=== PATIENT | female | born 1950 | race Caucasian/White ===

== ENCOUNTER 2022-08-14 10:09 | Outpatient (REF) | payer MEDICARE, SELFPAY ==
[2022-08-14 11:53] LABS: MANUAL DIFF FLAG NO
[2022-08-14 12:05] LABS: Basophils Absolute Auto 0.1 X10*3/uL (0.0-0.2); Basophils Percent Auto 1.2 % (0-2); Eosinophils Absolute Auto 0.3 X10*3/uL (0.0-0.4); Eosinophils Percent Auto 4.8 % (0-4); Hematocrit 37.3 % (37.0-47.0); Hemoglobin 12.3 g/dl (12.0-16.0); Imm Gran Abs Auto 0.02 X10*3/uL (0.00-0.03); Imm Gran Pct Auto 0.3 % (0.0-0.4); Lymphocytes Absolute Auto 1.6 X10*3/uL (1.2-4.9); Lymphocytes Percent Auto 26.3 % (20-40); Mean Corpuscular Hemoglobin 30.5 pg (27.0-33.0); Mean Corpuscular Volume 92.6 fL (80.0-98.0); Mean Platelet Volume 9.4 fL (9.4-12.3); Monocytes Absolute Auto 0.5 X10*3/uL (0.1-1.2); Monocytes Percent Auto 8.6 % (2-11); Neutrophils Absolute Auto 3.6 x10*3/uL (2.0-8.3); Neutrophils Percent Auto 58.8 % (45-73); Platelet Count 490 X10*3/uL (160-400); Red Blood Count 4.03 X10*6/uL (4.20-5.50); Red Cell Distribution Width 14.6 % (11.0-16.0); White Blood Count 6.1 X10*3/uL (4.8-10.8)
[2022-08-14 14:07] LABS: Appearance Urine Clear; Color Urine Yellow; Glucose Urine UA Negative (Negative); Leukocyte Esterase Urine Moderate (2+) (Negative); Nitrite Urine Positive (Negative); Specific Gravity - Urine 1.015 (1.005-1.025); UMIC TRIGGER UA YES; Urine Blood Negative (Negative); Urine Ketones Negative (Negative); Urine Protein Negative (Neg-Trace)
[2022-08-14 14:14] LABS: Bacteria Urine 4+ (None Seen); Hyaline Casts Urine 0-2 /LPF (0-2); RBC Urine 0-2 /HPF (0-2); Squamous Epithelial Cell Urine 0-2 /HPF (0-2); WBC Urine 21-50 /HPF (0-5)
[2022-08-14 14:19] LABS: Alanine Aminotransferase 18 U/L (0-31); Albumin Level 4.2 g/dL (3.5-5.0); Alkaline Phosphatase 72 U/L (39-117); Anion Gap 12 (12-20); Aspartate Amino Transferase 21 U/L (5-31); Bilirubin Total 0.6 mg/dL (0.0-1.0); Blood Urea Nitrogen 18 mg/dL (9-16); Calcium 9.9 mg/dL (8.4-10.2); Carbon Dioxide 27 mmol/L (22-29); Chloride 104 mmol/L (96-108); Cholesterol 220 mg/dL; Estimated Glomerular Filt Rate > 60; Glucose Fasting 97 mg/dL (60-99); HDL Cholesterol 61 mg/dL; LDL Cholesterol Calculated 134 mg/dl; Potassium 4.4 mmol/L (3.3-5.1); Sodium 139 mmol/L (135-145); Total Protein 7.2 g/dL (6.5-8.0); Triglycerides 129 mg/dL
[2022-08-14 14:37] LABS: TSH reflex Free T4 1.48 uIU/mL (0.32-4.0); Vitamin D 25-OH Total 34.6 ng/mL (>30)
== END 2022-08-14 10:10 | disposition home or self-care (01) ==
LOC: HO.HMGCLDS 10:09
PROVIDERS: PCP Internal Medicine; Visit Provider Internal Medicine
DX: Z00.00 Encounter for general adult medical examination without abnormal findings (principal); Z78.0 Asymptomatic menopausal state; E55.9 Vitamin D deficiency, unspecified
CPT/HCPCS: 36415; 80053; 80061; 81001; 82306; 84443; 85025

== ENCOUNTER 2022-08-21 13:00 | Outpatient (REF) | payer MEDICARE, SELFPAY ==
--- NOTE | ~2022-08-21 | MM_ITS ---
EXAMINATION: MM SCREENING DIGITAL BREAST TOMOSYNTHESIS, BILATERAL CLINICAL INFORMATION: Screening. Asymptomatic. Status post previous left breast surgery. The lifetime risk of breast cancer based on the Tyrer-Cuzick Model is 5.5%. COMPARISON: Mammography: None TECHNIQUE: Digital breast tomosynthesis is performed in both the craniocaudal and mediolateral oblique views along with computer-aided detection (CAD). Synthesized 2D images are generated from the tomosynthesis. FINDINGS: There are scattered areas of fibroglandular density (ACR BI-RADS breast composition Category b). Patient is status post previous left breast excisional surgery. No abnormal dominant mass or suspicious grouping of microcalcifications is identified. MM/MM tomosynthesis screening BI IMPRESSION: No mammographic evidence of malignancy. ASSESSMENT: BI-RADS 2: Benign RECOMMENDATION: Routine annual mammography screening. This patient's information was entered into a reminder system with a target due date for their next mammogram.
--- NOTE | ~2022-08-21 | MM_ITS ---
EXAMINATION: BONE DENSITOMETRY CLINICAL INDICATION: Asymptomatic menopausal state. COMPARISON: None (current study represents initial baseline exam). TECHNIQUE: Using a Purkinje DXA System (software version: 13.1) manufactured by [employer], dual-energy x-ray absorptiometry was performed of the lumbar spine and left hip. The images are of good technical quality. Summary results are attached. FINDINGS: AP SPINE L1-L4: BMD 1.341 g/cm2, Z-score 2.5, T-score 1.3, normal. LEFT FEMUR, NECK: BMD 0.939 g/cm2, Z-score 0.8, T-score -0.7, normal. LEFT FEMUR, TOTAL: BMD 1.076 g/cm2, Z-score 1.8, T-score 0.5, normal. IDENTIFIED RISK FACTORS: Recurrent falls. Menopause. HISTORY OF FRACTURE: None listed. MEDICATIONS: Calcium supplement and/or multivitamin. Vitamin D. MM/XR DEXA axial skeleton IMPRESSION: 1. DIAGNOSIS: Normal bone density based on the lowest T-score value of -0.7 in the femoral neck applying World Health Organization criteria. 2. 10-YEAR FRACTURE RISK PREDICTION, FRAX: According to the guidelines, FRAX calculation should only be performed on patients in the osteopenia bone density category.?Therefore, FRAX was not performed on this patient.? 3. Treatment Recommendations: NOF guidelines recommend consideration for treatment in postmenopausal women and men age 50 and older presenting with the following: -A hip or vertebral (clinical or morphometric) fracture. -T-score less than or equal to -2.5 at the femoral neck or spine after appropriate evaluation to exclude secondary causes. -Low bone mass at the hip or spine and a 10-year fracture probability by FRAX of greater than or equal to 3% for hip fracture or greater than or equal to 20% for major osteoporotic fracture based on the [place] adapted WHO algorithm. 4. Other Recommendations: All treatment decisions require clinical judgment and consideration of individual patient factors, including patient preferences, comorbidities, previous drug use, risk factors not captured in the FRAX model (e.g. frailty, falls, vitamin D deficiency, increased bone turnover, interval significant decline in bone density) and possible under or overestimation of fracture risk by FRAX. FUTURE SCAN RECOMMENDATION: People with diagnosed cases of osteoporosis or at high risk for fracture should have regular bone mineral density tests. For patients eligible for Medicare, routine testing is allowed once every 2 years. The testing frequency can be increased to one year for patients who have rapidly progressing disease, those who are receiving or discontinuing medical therapy to restore bone mass, or have additional risk factors.
== END 2022-08-21 13:01 | disposition home or self-care (01) ==
LOC: HO.MAMMO 13:00
PROVIDERS: Visit Provider Internal Medicine
DX: Z12.31 Encounter for screening mammogram for malignant neoplasm of breast (principal); Z13.820 Encounter for screening for osteoporosis; Z78.0 Asymptomatic menopausal state
CPT/HCPCS: 77063; 77067; 77080

== ENCOUNTER 2022-08-27 10:57 | Outpatient (REF) | payer MEDICARE, SELFPAY | END 2022-08-27 10:58 | disposition home or self-care (01) | LOC: HO.HMGCLNP 10:57 | PROVIDERS: Visit Provider Internal Medicine | DX: R82.71 Bacteriuria (principal) | CPT/HCPCS: 87086; 87088; 87186 ==

== ENCOUNTER 2023-06-12 12:08 | Outpatient (REF) | payer MEDICARE, SELFPAY ==
[2023-06-12 13:21] LABS: MANUAL DIFF FLAG NO
[2023-06-12 13:30] LABS: Basophils Absolute Auto 0.1 X10*3/uL (0.0-0.2); Basophils Percent Auto 0.8 % (0-2); Eosinophils Absolute Auto 0.2 X10*3/uL (0.0-0.4); Eosinophils Percent Auto 2.1 % (0-4); Hematocrit 32.3 % (37.0-47.0); Hemoglobin 10.4 g/dl (12.0-16.0); Imm Gran Abs Auto 0.09 X10*3/uL (0.00-0.03); Imm Gran Pct Auto 1.2 % (0.0-0.4); Lymphocytes Absolute Auto 1.5 X10*3/uL (1.2-4.9); Lymphocytes Percent Auto 19.2 % (20-40); Mean Corpuscular HGB Conc 32.2 g/dl (31.0-35.0); Mean Corpuscular Hemoglobin 30.5 pg (27.0-33.0); Mean Corpuscular Volume 94.7 fL (80.0-98.0); Mean Platelet Volume 8.8 fL (9.4-12.3); Monocytes Absolute Auto 1.1 X10*3/uL (0.1-1.2); Monocytes Percent Auto 14.6 % (2-11); Neutrophils Absolute Auto 4.7 x10*3/uL (2.0-8.3); Neutrophils Percent Auto 62.1 % (45-73); Platelet Count 641 X10*3/uL (160-400); Red Blood Count 3.41 X10*6/uL (4.20-5.50); Red Cell Distribution Width 13.3 % (11.0-16.0); White Blood Count 7.6 X10*3/uL (4.8-10.8)
[2023-06-12 14:15] LABS: Erythrocyte Sedimentation Rate 102 MM/HR (0-20)
[2023-06-12 14:26] LABS: Alanine Aminotransferase 20 U/L (0-31); Albumin Level 3.2 g/dL (3.5-5.0); Alkaline Phosphatase 66 U/L (39-117); Anion Gap 11 (12-20); Aspartate Amino Transferase 20 U/L (5-31); Bilirubin Total 0.4 mg/dL (0.0-1.0); Blood Urea Nitrogen 15 mg/dL (9-16); Calcium 9.1 mg/dL (8.4-10.2); Carbon Dioxide 26 mmol/L (22-29); Chloride 103 mmol/L (96-108); Estimated Glomerular Filt Rate > 60; Glucose Random 103 mg/dL (60-115); Sodium 136 mmol/L (135-145); Total Protein 7.2 g/dL (6.5-8.0)
[2023-06-12 14:35] LABS: TSH reflex Free T4 1.35 uIU/mL (0.32-4.0)
== END 2023-06-12 12:09 | disposition home or self-care (01) ==
LOC: HO.HMGCLDS 12:08
PROVIDERS: PCP Internal Medicine; Visit Provider Internal Medicine
DX: R53.83 Other fatigue (principal)
CPT/HCPCS: 36415; 80053; 84443; 85025; 85652

== ENCOUNTER 2023-06-18 14:25 | Outpatient (REF) | payer MEDICARE, SELFPAY ==
[2023-06-18 16:06] LABS: Eos%MD 2.8 %; Hematocrit 32.1 % (37.0-47.0); Hemoglobin 10.2 g/dl (12.0-16.0); IG%MD 0.8 %; Lymph%MD 19.2 %; Mean Corpuscular HGB Conc 31.8 g/dl (31.0-35.0); Mean Corpuscular Hemoglobin 29.9 pg (27.0-33.0); Mean Corpuscular Volume 94.1 fL (80.0-98.0); Mean Platelet Volume 8.7 fL (9.4-12.3); Mono%MD 19.9 %; Neut%MD 56.3 %; Platelet Count 669 X10*3/uL (160-400); Red Blood Count 3.41 X10*6/uL (4.20-5.50); Red Cell Distribution Width 13.8 % (11.0-16.0)
[2023-06-18 16:24] LABS: Rheumatoid Factor < 13.0 IU/mL (<15.0)
[2023-06-18 16:26] LABS: Iron 12 mcg/dL (30-160); Percent Iron Saturation 9 % (15-50); Total Iron Binding Capacity 134 mcg/dL (228-428); Unsaturated Iron Binding 122 ug/dL
[2023-06-18 16:36] LABS: Ferritin 1496 ng/mL (10-250)
[2023-06-18 16:53] LABS: Folate 13.5 ng/mL (> or = 4.0); Vitamin B12 1020 pg/mL (200-900)
[2023-06-18 18:22] LABS: Band Neutrophils Percent 3 % (3-5); Basophils Abs Manual 0.1 X10*3/uL (0.0-0.2); Basophils Percent Manual 1 % (0-2); Eosinophils Absolute Manual 0.3 X10*3/uL (0.0-0.4); Eosinophils Percent Manual 5 % (0-4); Lymphocytes Absolute Manual 0.8 X10*3/uL (1.2-4.9); Lymphocytes Percent Manual 14 % (20-40); Monocytes Percent Manual 17 % (2-11); Neutrophils Absolute Manual 3.8 X10*3/uL (2.0-8.3); Neutrophils Percent Manual 60 % (45-73)
[2023-06-18 18:23] LABS: RBC Morphology NORMAL
[2023-06-18 18:24] LABS: Platelet Estimate INCREASED (NORMAL); Platelet Morphology Comment NORMAL
[2023-06-21 12:19] LABS: Prot Elec - Albumin 2.7 g/dL (3.8-4.8); Prot Elec - Alpha1 0.6 g/dL (0.2-0.3); Prot Elec - Alpha2 1.1 g/dL (0.5-0.9); Prot Elec - Beta 1 0.4 g/dL (0.4-0.6); Prot Elec - Beta 2 0.6 g/dL (0.2-0.5); Prot Elec - Gamma 1.3 g/dL (0.8-1.7); Prot Elec - Total Protein 6.7 g/dL (6.1-8.1)
[2023-06-21 13:08] LABS: Cyclic Citrullinated Peptide <16 UNITS
[2023-06-24 18:23] LABS: IgA 450 mg/dL (70-320); IgG 1476 mg/dL (600-1540); IgM 85 mg/dL (50-300)
== END 2023-06-18 14:26 | disposition home or self-care (01) ==
LOC: HO.HMGCLDS 14:25
PROVIDERS: PCP Internal Medicine; Visit Provider Internal Medicine
DX: D64.9 Anemia, unspecified (principal)
CPT/HCPCS: 36415; 82607; 82728; 82746; 82784; 83540; 84165; 85007; 85027; 86200; 86334; 86431

== ENCOUNTER 2023-06-29 08:15 | Outpatient (REF) | payer MEDICARE, SELFPAY ==
[2023-06-29 12:11] LABS: Leukocytes Stool Qualitative FEW: < 2/OIF (NEGATIVE)
[2023-06-29 13:18] LABS: CDiff Gene PCR NEGATIVE (Negative)
== END 2023-06-29 08:16 | disposition home or self-care (01) ==
LOC: HO.HMGCLNP 08:15
PROVIDERS: PCP Internal Medicine; Visit Provider Internal Medicine
DX: R19.7 Diarrhea, unspecified (principal)
CPT/HCPCS: 87177; 87209; 87493; 87507; 89055

== ENCOUNTER 2023-07-02 09:00 | Outpatient (REF) | payer MEDICARE, SELFPAY ==
[2023-07-02 14:38] LABS: Adenovirus F 40/41 Not Detected (Not Detect.); Astrovirus Not Detected (Not Detect.); Campylobacter Not Detected (Not Detect.); Cryptosporidium Not Detected (Not Detect.); Cyclospora cayetanensis Not Detected (Not Detect.); E. coli EAEC Not Detected (Not Detect.); E. coli EPEC Not Detected (Not Detect.); E. coli ETEC Not Detected (Not Detect.); E. coli STEC Not Detected (Not Detect.); Entamoeba histolytica Not Detected (Not Detect.); Giardia lamblia Not Detected (Not Detect.); Norovirus GI/GII Not Detected (Not Detect.); Plesiomonas shigelloides Not Detected (Not Detect.); Rotavirus A Not Detected (Not Detect.); Salmonella Not Detected (Not Detect.); Sapovirus Not Detected (Not Detect.); Shigella sp./EIEC Not Detected (Not Detect.); Vibrio Not Detected (Not Detect.); Vibrio Cholerae Not Detected (Not Detect.); Yersinia enterocolitica Not Detected (Not Detect.)
== END 2023-07-02 09:01 | disposition home or self-care (01) ==
LOC: HO.HMGCLNP 09:00
PROVIDERS: PCP Internal Medicine; Visit Provider Internal Medicine
DX: R19.7 Diarrhea, unspecified (principal)
CPT/HCPCS: 87507

== ENCOUNTER 2023-08-02 15:20 | Outpatient (AMB) | payer MEDICARE, SELFPAY ==
--- NOTE | 2023-08-02 15:25 | A.OFFVIS_ITS ---
Intake Vital Signs 08/02/23 15:26 Height 5 ft 4 in Weight 175 lb BMI 30.0 BP 140/67 H Blood Pressure Location Lt brachial Position Sitting Pulse 88 Intake Visit Reasons: Anemia, unspecified Intake Note: Patient new consult for Anemia. Patient was with diarrhea but it clear out. Denies any other GI issues. [employer] Clerk Required: No Accompanied by: Self / Same As Patient Allergies Sulfa (Sulfonamide Antibiotics) Adverse Reaction (Verified 08/02/23 15:24) hives HPI Anemia, unspecified HPI Details 73-year-old female with past medical his tory of anemia, vitamin-D deficiency, knee pain is here today for initial consultation. Patient was sent to us for anemia. Patient had negative Cologuard in 2021. Patient denies any melena, hematochezia, unintentional weight loss or ribbon like stools. Patient denies any family history of colorectal cancer. Patient did decline colonoscopy. Patient denies any other GI concerning symptoms. Patient reports that she had episode of diarrhea for few days in the past, however since then things improved. Patient reports that she is moving her bowels well without any issues. [facility] Family History Daughter Mental health disorder Social History Household Members Other:: , 3 children, lives with daughter, [facility] Patient Tobacco Use Status: Former Tobacco user e-Cigarette/Vaping Use: Never Used service: No Current occupational status: retired Cognitive needs: No Hearing needs: No Vision needs: Yes Review of Systems Const Denies weight gain and Denies weight loss ENT Reports no additional complaints, Denies dysphagia and Denies odynophagia Card Reports no additional complaints Resp Reports no additional complaints GI Denies abdominal pain, Denies belching, Denies melena, Denies bloating, Denies change in bowel habits, Denies dysphagia, Denies excessive flatus, Denies dyspepsia, Denies heartburn, Denies diarrhea, Denies loose stools, Denies nausea, Denies odynophagia and Denies vomiting Musc Reports no additional complaints Neuro Reports no additional complaints Psych Reports no additional complaints Endo Reports no additional complaints Physical Exam Vital Signs: Last Vital Signs Pulse 88 08/02/23 15:26 BP 140/67 H 08/02/23 15:26 BMI result Body Mass Index 30.0 Const General: healthy appearing, no acute distress and well developed Nutritional Appearance: obese Orientation/consciousness: patient oriented x3 HEENT Head: Yes normal to inspection, Yes normocephalic and Yes atraumatic Face and sinus: Yes normal facial exam Mouth: Normal oral and palatal mucosa present Throat: Yes posterior oropharynx normal, Yes tonsils normal and Yes uvula midline Eyes General: appearance normal, both eyes and all related structures Neck Neck: Yes normal visual inspection, Yes full ROM and Yes trachea midline Thyroid: Thyroid normal Resp Effort & Inspection: normal respiratory effort, able to speak in complete sentences, no tracheal deviation and symmetric chest movement Auscultation: clear to auscultation bilaterally Cardio Rate: regular rate GI Inspection: Yes normal to inspection, No distended and Yes obesity Palpation (GI): Soft to palpation, not firm, nontender and No hepatosplenomegaly present Auscultation: normal bowel sounds General: Yes no CVA tenderness Back/Spine/Pelvis Back: no CVA tenderness Skin General skin exam: elasticity normal, turgor normal and dry skin Neuro General: patient oriented x3 Psych Appearance: grossly normal Mental Status: mental status grossly normal Speech and movement: Normal speech and movement present Assessment & Plan Assessment & Plan (1) Anemia: Code(s): D64.9 - Anemia, unspecified Qualifiers: Anemia type: iron deficiency Iron deficiency anemia type: inadequate dietary iron intake Qualified Code(s): D50.8 - Other iron deficiency anemias (2) Abdominal bloating: Code(s): R14.0 - Abdominal distension (gaseous) Plan Will repeat her blood work today. Patient was encouraged to have blood work done as it was order also by her PCP. I will check vitamin-D, B12 and folate. Patient will return in 5 weeks, sooner on as needed basis. Patient is agreeable to this plan and verbalizes understanding of instructions. She was given the opportunity to ask questions and all questions answered. Thank you for allowing me to participate in her care. Orders: Orders Vitamin D 25-OH (D2 and D3) 08/02/23 E55.9 - Vitamin D deficiency, unspecified Vitamin B12 and Folate 08/02/23 R19.7 - Diarrhea, unspecified Coding Level of Care Code New Pt Level 3 (69522) Diagnoses Iron deficiency anemia secondary to inadequate dietary iron intake D50.8 Anemia type: iron deficiency Iron deficiency anemia type: inadequate dietary iron intake Abdominal bloating R14.0 Time Spent (min) 40 Comment 30 minutes spent with patient and additional 10 minutes spent reviewing her records
[2023-08-02 15:26] VITALS: BP 140/67; PULSE 88
== END 2023-08-02 15:51 | disposition home or self-care (01) ==
PROVIDERS: PCP Internal Medicine; Visit Provider Nurse Practitioner Family
DX: D50.8 Other iron deficiency anemias (principal); R14.0 Abdominal distension (gaseous)
CPT/HCPCS: 99203

== ENCOUNTER → 2023-08-02 15:20 | Outpatient (BNVA) | payer MEDICARE, SELFPAY | PROVIDERS: PCP Internal Medicine; Visit Provider Nurse Practitioner Family | DX: D50.8 Other iron deficiency anemias (principal); R14.0 Abdominal distension (gaseous) | CPT/HCPCS: 99202 ==

== ENCOUNTER 2023-08-09 08:41 | Outpatient (REF) | payer MEDICARE, SELFPAY ==
[2023-08-09 11:39] LABS: Eos%MD 5.8 %; Hematocrit 35.5 % (37.0-47.0); Hemoglobin 11.3 g/dl (12.0-16.0); IG%MD 0.2 %; Lymph%MD 27.1 %; Mean Corpuscular HGB Conc 31.8 g/dl (31.0-35.0); Mean Corpuscular Hemoglobin 30.1 pg (27.0-33.0); Mean Corpuscular Volume 94.7 fL (80.0-98.0); Mean Platelet Volume 9.2 fL (9.4-12.3); Mono%MD 10.2 %; Neut%MD 55.7 %; Platelet Count 430 X10*3/uL (160-400); Red Blood Count 3.75 X10*6/uL (4.20-5.50); Red Cell Distribution Width 18.1 % (11.0-16.0); White Blood Count 5.9 X10*3/uL (4.8-10.8)
[2023-08-09 12:19] LABS: Alanine Aminotransferase 15 U/L (0-31); Albumin Level 3.9 g/dL (3.5-5.0); Alkaline Phosphatase 76 U/L (39-117); Anion Gap 12 (12-20); Aspartate Amino Transferase 19 U/L (5-31); Bilirubin Total 0.4 mg/dL (0.0-1.0); Blood Urea Nitrogen 16 mg/dL (9-16); C Reactive Protein 0.98 mg/dL (< or = 0.50); Calcium 9.6 mg/dL (8.4-10.2); Carbon Dioxide 27 mmol/L (22-29); Chloride 106 mmol/L (96-108); Cholesterol 216 mg/dL (<200); Estimated Glomerular Filt Rate > 60; Glucose Fasting 86 mg/dL (60-99); HDL Cholesterol 69 mg/dL (>40); Iron 72 mcg/dL (30-160); LDL Cholesterol Calculated 131 mg/dL (<100); Percent Iron Saturation 30 % (15-50); Potassium 4.2 mmol/L (3.3-5.1); Sodium 141 mmol/L (135-145); Total Iron Binding Capacity 243 mcg/dL (228-428); Total Protein 7.5 g/dL (6.5-8.0); Triglycerides 81 mg/dL (<150); Unsaturated Iron Binding 171 ug/dL
[2023-08-09 12:38] LABS: Ferritin 401 ng/mL (10-250); Vitamin D 25-OH Total 30.7 ng/mL (>30)
[2023-08-09 12:44] LABS: Folate 13.5 ng/mL (> or = 4.0); Vitamin B12 267 pg/mL (200-900)
[2023-08-09 14:19] LABS: Band Neutrophils Percent 0 % (3-5); Eosinophils Absolute Manual 0.4 X10*3/uL (0.0-0.4); Eosinophils Percent Manual 6 % (0-4); Lymphocytes Absolute Manual 1.4 X10*3/uL (1.2-4.9); Lymphocytes Percent Manual 24 % (20-40); Monocytes Absolute Manual 0.3 X10*3/uL (0.1-1.2); Monocytes Percent Manual 5 % (2-11); Neutrophils Absolute Manual 3.8 X10*3/uL (2.0-8.3); Neutrophils Percent Manual 65 % (45-73)
[2023-08-09 14:20] LABS: Hypochromasia 1+ (5-14) /OIF; Platelet Estimate SLIGHTLY INCREASED (NORMAL); Platelet Morphology Comment NORMAL; RBC Morphology NOTED
== END 2023-08-09 08:42 | disposition home or self-care (01) ==
LOC: HO.HMGCLDS 08:41
PROVIDERS: PCP Internal Medicine; Visit Provider Internal Medicine
DX: Z00.00 Encounter for general adult medical examination without abnormal findings (principal); D50.8 Other iron deficiency anemias; R53.83 Other fatigue
CPT/HCPCS: 36415; 80053; 80061; 82306; 82607; 82728; 82746; 83540; 85007; 85027; 86140

== ENCOUNTER 2023-08-12 12:57 | Outpatient (AMB) | payer MEDICARE, SELFPAY ==
[2023-08-12 13:30] VITALS: BP 110/70; PULSE 83; O2SAT 96; BMI 28.8
--- NOTE | 2023-08-12 13:30 | A.OFFPC_ITS ---
Vital Signs 08/12/23 13:30 Height 5 ft 4 in Weight 168 lb BMI 28.8 BP 110/70 Blood Pressure Location Lt brachial Position Sitting Pulse 83 Pulse Source Pulse Oximeter Pulse Oximetry (%) 96 Oxygen Delivery Method Room Air Intake Visit Reasons: Annual PE Intake Note: Pt is here today for PE. Allergies Sulfa (Sulfonamide Antibiotics) Adverse Reaction (Verified 08/12/23 13:33) hives Medication List - Last Reconciled 08/12/23 by Trinity Banuelos MD No Known Home Meds Tobacco use date assessed: 08/12/23 Fall risk assessment: No Falls in past year Last assessed Fall Risk: 08/12/23 Dental Screening Dental Screen Date: 08/12/23 Did you have a dental visit in the last 12 months?: Yes Did you have a dental problem in the last 6 months where you did not have access to dental care?: No Was dental information given to patient?: Patient has dentist HPI Annual PE HPI Details Patient presents for physical. She has been taking iron and vitamin-C for iron deficiency anemia. Patient denies weakness lightheadedness chest pain hematochezia melena abdominal pain. Patient was seen by deputy sheriff/investigator and has an appointment scheduled in 1 month. Patient is planning to discuss EGD and colonoscopy to evaluate for iron deficiency anemia. Patient had never had colonoscopy in the past. PFSH Family History Daughter Mental health disorder Social History Household Members Other:: , 3 children, lives with daughter, Housing: Condominium Patient Tobacco Use Status: Former Tobacco user e-Cigarette/Vaping Use: Never Used service: No Current occupational status: retired Cognitive needs: No Hearing needs: No Vision needs: Yes Questionnaire PHQ-9 Over the last 2 weeks, how often have you been bothered by any of the following problems? 1. Little interest or pleasure in doing things: not at all 2. Feeling down, depressed, or hopeless: not at all 3. Trouble falling or staying asleep, or sleeping too much: not at all 4. Feeling tired or having little energy: not at all 5. Poor appetite or overeating: not at all 6. Feeling bad about yourself - or that you are a failure or have let yourself or your family down: not at all 7. Trouble concentrating on things, such as reading the newspaper or watching television: not at all 8. Moving or speaking so slowly that other people could have noticed. Or the opposite - being so fidgety or restless that you have been moving around a lot more than usual: not at all 9. Thoughts that you would be better off or of hurting yourself in some way: not at all Total score: 0 Depression Screening Interpretation: Negative Depression Screening Done: Yes Source: Developed by Drs. Vlad Caro, Kayla Mendoza, Rhett Baker and colleagues, with an educational zeb from [employer]. Thrive Questionnaire Date Thrive assessed: 08/12/23 I am a: Patient What is your living situation today?: I have a steady place to live Within the past 12 months, did the food you bought not last and you didn't have the money to get more?: Never true Within the past 12 months, did you worry whether your food would run out before you got money to buy more?: Never true Do you have trouble paying for medicines?: No Do you have trouble getting transportation to medical appointments?: No Do you have trouble paying your heating and electricity bill?: No Do you have trouble taking care of your child, family member or friend?: No Do you have trouble with day-to-day activities such as bathing, preparing meals, shopping, managing finances, etc.?: No Are you currently unemployed and looking for a job?: No Are you interested in more education?: No Please select the resources that you would like help with: None Currently or been in a relationship where the following occur: no concerns reported AUDIT C Alcohol Use Questionnaire (AUDIT-C) 1. How often do you have a drink containing alcohol?: 4 or more times a week 2. How many drinks containing alcohol do you have on a typical day when you are drinking?: 1 or 2 3. How often do you have six or more drinks on one occasion?: Never Total Score: 4 STEPHIE-7 AMB Questionnaire STEPHIE-7 Date STEPHIE - 7 assessed: 08/12/23 Feeling nervous, anxious, or on edge: 0 = Not at all Not being able to stop or control worryin = Not at all Worrying too much about different things: 0 = Not at all Trouble relaxin = Not at all Being so restless that it is hard to sit still: 0 = Not at all Becoming easily annoyed or irritable: 0 = Not at all Feeling afraid as if something awful might happen: 0 = Not at all Total STEPHIE-7 score (0-4 normal; 5-9 mild; 10-14 moderate; 15-21 severe): 0 Source: Developed by Drs. Vlad Caro, Kayla Mendoza, Rhett Baker and colleagues, with an educational zeb from [employer]. Review of Systems Const All systems reviewed & are unremarkable except as noted in HPI and below Reports no additional complaints Eyes Reports no additional complaints ENT Reports no additional complaints Card Reports no additional complaints Resp Reports no additional complaints GI Reports no additional complaints Reports no additional complaints Physical exam (Primary Care) Vital Signs: Last Vital Signs Pulse 83 08/12/23 13:30 BP 110/70 08/12/23 13:30 Pulse Ox 96 08/12/23 13:30 Oxygen Delivery Method Room Air 08/12/23 13:30 BMI result Body Mass Index 28.8 Tobacco/Smoking Status: Tobacco use Status Tobacco use date assessed 08/12/23 08/12/23 13:35 Patient Tobacco Use Status Former Tobacco user 08/12/23 13:30 e-Cigarette/Vaping Use Never Used 08/12/23 13:30 Depression Screening Interpretation: Negative Thrive Assessment: Date of Thrive Assessment Date Thrive assessed 08/09/22 08/12/23 13:30 Currently or been in a relationship where the following occur: no concerns reported Const General: no acute distress HENMT Head: Yes normal to inspection General nose exam: Normal external nose present Mouth: Normal oral and palatal mucosa present Throat: Yes posterior oropharynx normal Eyes General: appearance normal, both eyes and all related structures Neck Neck: Yes supple Resp Effort & Inspection: normal respiratory effort Auscultation: clear to auscultation bilaterally Cardio Rhythm: regular rhythm Heart sounds: S1 normal heart sound present, S2 normal heart sound present and Murmur heart sound present systolic II/ GI Inspection: Yes normal to inspection Palpation (GI): Soft to palpation Percussion: Yes normal to percussion Auscultation: normal bowel sounds Assessment and Plan Assessment & Plan (1) Anxiety: Code(s): F41.9 - Anxiety disorder, unspecified Plan: Patient is requesting referral to counselor because of some family difficulty (2) Anemia: Comment: Iron deficiency 06/20, improved on iron supplement Code(s): D64.9 - Anemia, unspecified Qualifiers: Anemia type: iron deficiency Iron deficiency anemia type: inadequate dietary iron intake Qualified Code(s): D50.8 - Other iron deficiency anemias Plan: Patient will continue iron supplement and repeat CBC and iron studies in 1 month. Patient will be referred to health information technologist and will follow-up with the deputy sheriff/investigator to discuss EGD and colonoscopy (3) Vitamin D deficiency: Code(s): E55.9 - Vitamin D deficiency, unspecified Plan: Patient will add 1000 units of vitamin-D supplement (4) Annual physical exam: Comment: Negative Cologuard 2021, negative mammogram 08/20 Code(s): Z00.00 - Encounter for general adult medical examination without abnormal findings Plan: Well-balanced diet regular physical activity discussed with the patient , follow-up in 1 month (5) Heart murmur: Code(s): R01.1 - Cardiac murmur, unspecified Plan: Obtain echocardiogram to evaluate Orders: Orders Complete Blood Count Auto Diff 1 Month D64.9 - Anemia, unspecified, E55.9 - Vitamin D deficiency, unspecified IRON PROFILE 1 Month D64.9 - Anemia, unspecified, E55.9 - Vitamin D deficiency, unspecified Erythrocyte Sedimentation Rate 1 Month D64.9 - Anemia, unspecified Comprehensive Met. Panel 1 Month D64.9 - Anemia, unspecified, E55.9 - Vitamin D deficiency, unspecified CA echo transthoracic complete Today R01.1 - Cardiac murmur, unspecified Referrals Counseling Referral F41.9 - Anxiety disorder, unspecified Coding Level of Care Code Est Pt Prev Care >65y(07938) Diagnoses Anxiety F41.9 Iron deficiency anemia secondary to inadequate dietary iron intake D50.8 Anemia type: iron deficiency Iron deficiency anemia type: inadequate dietary iron intake Vitamin D deficiency E55.9 Annual physical exam Z00.00 Heart murmur R01.1
== END 2023-08-12 14:35 | disposition home or self-care (01) ==
PROVIDERS: PCP Internal Medicine; Visit Provider Internal Medicine
DX: F41.9 Anxiety disorder, unspecified (principal); D50.8 Other iron deficiency anemias; E55.9 Vitamin D deficiency, unspecified; Z00.00 Encounter for general adult medical examination without abnormal findings; R01.1 Cardiac murmur, unspecified
CPT/HCPCS: 99397

== ENCOUNTER → 2023-09-04 11:06 | Outpatient (REF) | payer MEDICARE, SELFPAY ==
--- NOTE | 2023-09-04 11:09 | CA_ITS ---
Transthoracic Echocardiogram Patient (Last, First, Middle): Lyndsay Smith, Gender: Female Date of : 1950 Age: 73 Procedure Date: 09/04/2023 Procedure Type: Transthoracic Echocardiogram Location: OP Height: 162.56 cm Weight: 77.11 kg BSA: 1.83 m2 Heart Rate: bpm BP: 132 / 86 mmHg Agriculture Intern: ZEYAD Referring MD: Trinity Banuelos MD Symptoms: R01.1 - Cardiac murmur, unspecified Study Quality: Adequate ECG Rhythm: Sinus Conclusions: - The left ventricular systolic function is normal. The calculated ejection fraction is 59% by biplane method. - No obvious valvular pathology seen on this study. Findings Left Ventricle Normal left ventricular cavity size. There is normal left ventricular wall thickness. The left ventricular systolic function is normal. The calculated ejection fraction is 59% by biplane method. There is no evidence of regional wall motion abnormalities. Diastolic function is normal for age. There is mild septal asymmetric hypertrophy. LV peak GLS -17.2%. Right Ventricle Normal right ventricular cavity size and systolic function. Atria Both atria are normal in size. Aortic Valve There is a normal trileaflet aortic valve. There is no aortic valve stenosis. There is no aortic valve regurgitation. Mitral Valve The mitral valve appears normal. There is no mitral valve regurgitation. There is no mitral valve stenosis. Pulmonic Valve The pulmonic valve is likely normal. Tricuspid Valve There is no tricuspid valve regurgitation. There is no evidence of pulmonary hypertension. Great Vessels The asc aorta and aortic arch are normal in size. Venous The inferior vena cava is normal in size and collapses greater than 50% with inspiration. Pericardium/Pleural There is no evidence of pericardial effusion. Prior Study Comparison No prior study available for comparison. Recommendations, Care & Conclusions No obvious valvular pathology seen on this study. Measurements 2D Linear Measurements IVSd: 1.03 0.6-0.9/0.6-1.0 cm LVIDd: 4.56 3.9-5.3/4.2-5.9 cm LVIDd Index: 2.49 2.4-3.2/2.2-3.1 cm/m2 LVIDs: 2.93 2.0-3.6 cm LVPWd: 0.99 0.7-1.1 cm LA Diam: 3.50 2.7-3.8/3.0-4.0 cm LAIDs Index: 1.91 1.5-2.3 cm/m2 LV Mass: 197.00 67-162/88-224 g LV Mass Index: 107.65 43-95/49-115 g/m2 LVOT Diam: 1.80 3.0+(-)1.3 cm 2D Systolic Function EF 4C: 59.90 >55% EF 2C: 59.50 >55% EF BiP: 59.40 >55% Mitral Valve MV Pk E: 0.83 MV PK A: 0.96 MV Decel Time: 209.00 E/A: 0.90 E'Lateral: 7.07 E'Medial: 5.66 E/E' Med: 14.60 E/E' Lat: 11.70 PHT: 61.00 MVA PHT: 3.61 Decel R[place]con: 3.96 Aortic Valve AoV Pk Leonard: 1.98 AoV Mn Leonard: 1.33 AoV VTI: 0.42 AoV Pk Grad: 16.00 Aov Mn Grad: 8.00 JUAN LUIS Cont.VTI: 1.74 LVOT LVOT Pk Leonard: 1.33 LVOT Mn Leonard: 0.79 LVOT VTI: 0.29 LVOT Pk Grad: 7.00 LVOT Mn Grad: 3.00 LVOT Diam: 1.80 LVOT Area: 2.54 Diastolic Function MV Pk E: 0.83 MV Pk A: 0.96 E/A: 0.90 E'Medial: 5.66 E/E' Med: 14.60 E' Laterial: 7.07 E/E' Lat: 11.70 Right Ventricle TAPSE (mm): 20.40 TVS' Leonard: 12.20 Tricuspid Valve RA Press: 3.00 Great Vessels Aorta Sinus of Valsalva: 3.44 2.0-3.[address] Ridge: 2.44 1.7-3.4 cm Ao Asc: 3.00 2.1-3.4 cm Ao Arch: 2.90 Updated in Other Vendor System with Status of Final Fadi Luna MD electronically signed on 09/06/2023 5:50:40 AM with status of Final
== END ==
LOC: HO.CARD 11:06
PROVIDERS: PCP Internal Medicine; Visit Provider Internal Medicine
DX: R01.1 Cardiac murmur, unspecified (principal)
CPT/HCPCS: 93306; 93356

== ENCOUNTER → 2023-09-04 11:09 | Outpatient (BNV) | payer MEDICARE, SELFPAY | PROVIDERS: PCP Internal Medicine; Visit Provider Internal Medicine | DX: R01.1 Cardiac murmur, unspecified (principal) | CPT/HCPCS: 93306 ==

== ENCOUNTER 2023-09-06 11:22 | Outpatient (AMB) | payer MEDICARE, SELFPAY ==
--- NOTE | 2023-09-06 11:23 | MHC.OFFVIS ---
Intake Vital Signs 09/06/23 11:27 Height 5 ft 4 in Weight 175 lb 7.807 oz BMI 30.1 BP 147/70 H Blood Pressure Location Lt brachial Position Sitting Pulse 67 Intake Visit Reasons: 5 weeks follow up Intake Note: Patient c/o; reports no complaints at this time. Sde Required: No Accompanied by: Self / Same As Patient Allergies Sulfa (Sulfonamide Antibiotics) Adverse Reaction (Verified 09/06/23 11:28) hives HPI 5 weeks follow up HPI Details LAST VISIT Anemia Abdominal bloating Plan Will repeat her blood work today. Patient was encouraged to have blood work done as it was order also by her PCP. I will check vitamin-D, B12 and folate. Patient will return in 5 weeks, sooner on as needed basis. Patient is agreeable to this plan and verbalizes understanding of instructions. She was given the opportunity to ask questions and all questions answered. ? Thank you for allowing me to participate in her care. Orders Orders Vitamin D 25-OH (D2 and D3) 08/02/23 E55.9 Vitamin B12 and Folate 08/02/23 R19.7 TODAY'S VISIT Patient is here today for follow-up. Patient agreed to going for colonoscopy. Patient never had colonoscopy in the past. Normal Cologuard in 2021. Continues to be anemic. Patient denies any issues with anesthesia in the past. Not on any anticoagulation medications. Denies history of sleep apnea. Her symptoms of abdominal bloating improved after patient changed her diet. She is following low FODMAP diet. Patient denies any melena, hematochezia, unintentional weight loss or ribbon like stools. Patient denies any dyspepsia, dysphagia or odynophagia. PFSH Family History Daughter Mental health disorder Social History Household Members Other:: , 3 children, lives with daughter, [facility] Patient Tobacco Use Status: Former Tobacco user e-Cigarette/Vaping Use: Never Used service: No Current occupational status: retired Cognitive needs: No Hearing needs: No Vision needs: Yes Review of Systems Const Denies weight gain and Denies weight loss ENT Reports no additional complaints, Denies dysphagia and Denies odynophagia Card Reports no additional complaints Resp Reports no additional complaints GI Denies abdominal pain, Denies belching, Denies melena, Reports bloating (Occasional), Denies change in bowel habits, Denies dysphagia, Denies excessive flatus, Denies dyspepsia, Denies heartburn, Denies diarrhea, Denies loose stools, Denies nausea, Denies odynophagia and Denies vomiting Reports no additional complaints Musc Reports no additional complaints Neuro Reports no additional complaints Psych Reports no additional complaints Endo Reports no additional complaints Physical Exam Vital Signs: Last Vital Signs Pulse 67 09/06/23 11:27 BP 147/70 H 09/06/23 11:27 BMI result Body Mass Index 30.1 Const General: healthy appearing, no acute distress and well developed Nutritional Appearance: well nourished Orientation/consciousness: patient oriented x3 Resp Effort & Inspection: normal respiratory effort, able to speak in complete sentences, no tracheal deviation and symmetric chest movement Auscultation: clear to auscultation bilaterally Cardio Rate: regular rate GI Inspection: Yes normal to inspection and No distended Palpation (GI): Soft to palpation, not firm, nontender and No hepatosplenomegaly present Auscultation: normal bowel sounds General: Yes no CVA tenderness Back/Spine/Pelvis Back: no CVA tenderness Skin General skin exam: elasticity normal, turgor normal and dry skin Neuro General: patient oriented x3 Psych Appearance: grossly normal Mental Status: mental status grossly normal Assessment & Plan Assessment & Plan (1) Anemia: Code(s): D64.9 - Anemia, unspecified Qualifiers: Anemia type: iron deficiency Iron deficiency anemia type: inadequate dietary iron intake Qualified Code(s): D50.8 - Other iron deficiency anemias (2) Screen for colon cancer: Code(s): Z12.11 - Encounter for screening for malignant neoplasm of colon Plan Patient agreed to go for colonoscopy. Patient denies melena, hematochezia, unintentional weight loss or ribbon like stools. Patient denies any dyspepsia, dysphagia or odynophagia. Patient reports that she is moving her bowels well without any issues. Continue low FODMAP diet. Patient denies any issues with anesthesia in the past. No history of sleep apnea. Not on any anticoagulation medication. No family history of CRC. What to expect before during and after the procedure discussed with patient. Importance of clear liquid diet and good bowel prep stressed with patient. I will see her after the procedure, sooner on as needed basis. Patient is agreeable to this plan and verbalizes understanding of instructions. She was given the opportunity to ask questions all questions answered. Thank you for allowing me to participate in her care Medications: New bisacodyl (Dulcolax (bisacodyl)) take 4 tabs at noon the day before your colonoscopy 20 mg (4 x 5 mg) PO ONCE 1 day 4 tabs 0RF Z12.11 - Encounter for screening for malignant neoplasm of colon polyethylene glycol 3350 (Miralax) As directed by gastroenterology department at [facility] 238 grams PO ONCE 238 grams 0RF Z12.11 - Encounter for screening for malignant neoplasm of colon Coding Level of Care Code Est Pt Level 3 (57017) Diagnoses Iron deficiency anemia secondary to inadequate dietary iron intake D50.8 Anemia type: iron deficiency Iron deficiency anemia type: inadequate dietary iron intake Screen for colon cancer Z12.11 Time Spent (min) 30 Comment 20 minutes spent with patient and additional 10 minutes spent reviewing her records
[2023-09-06 11:27] VITALS: BP 147/70; PULSE 67; BMI 30.1
== END 2023-09-06 12:15 | disposition home or self-care (01) ==
PROVIDERS: PCP Internal Medicine; Visit Provider Nurse Practitioner Family
DX: D50.8 Other iron deficiency anemias (principal); Z12.11 Encounter for screening for malignant neoplasm of colon
CPT/HCPCS: 99213

== ENCOUNTER → 2023-09-06 11:22 | Outpatient (BNVA) | payer MEDICARE, SELFPAY | PROVIDERS: PCP Internal Medicine; Visit Provider Nurse Practitioner Family | DX: Z12.11 Encounter for screening for malignant neoplasm of colon (principal); D50.8 Other iron deficiency anemias | CPT/HCPCS: 99212 ==

== ENCOUNTER → 2023-09-11 14:45 | Outpatient (BNV) | payer MEDICARE, SELFPAY | PROVIDERS: PCP Internal Medicine; Visit Provider Radiology Diagnostic Radiology | DX: Z12.31 Encounter for screening mammogram for malignant neoplasm of breast (principal) | CPT/HCPCS: 77063; 77067 ==

== ENCOUNTER 2023-09-11 14:47 | Outpatient (REF) | payer MEDICARE, SELFPAY ==
--- NOTE | ~2023-09-11 | MM_ITS ---
EXAMINATION: MM SCREENING DIGITAL BREAST TOMOSYNTHESIS, BILATERAL CLINICAL INFORMATION: Screening. Asymptomatic. The patient is status post lipoma excision of the superomedial aspect of the left breast. COMPARISON: Mammography: This study is compared with prior exams dating back to 2022. TECHNIQUE: Digital breast tomosynthesis is performed in both the craniocaudal and mediolateral oblique views along with computer-aided detection (CAD). Synthesized 2D images are generated from the tomosynthesis. FINDINGS: There are scattered areas of fibroglandular density (ACR BI-RADS breast composition Category b). There are no significant masses, abnormal calcifications, or other abnormalities. There are multiple surgical clips in the upper-outer quadrant of the left breast from the excision of a lipoma. There is a tissue marker in the upper outer quadrant of the left breast from prior benign percutaneous biopsy. MM/MM tomosynthesis screening BI IMPRESSION: No mammographic evidence of malignancy. ASSESSMENT: BI-RADS BI-RADS 2 - Benign Findings RECOMMENDATION: Routine annual mammography screening. 1 year F/U This examination should not preclude the clinical evaluation of a suspicious palpable abnormality. This patient's information was entered into a reminder system with a target due date for their next mammogram.
== END 2023-09-11 14:48 | disposition home or self-care (01) ==
LOC: HO.MAMMO 14:47
PROVIDERS: PCP Internal Medicine; Visit Provider Internal Medicine
DX: Z12.31 Encounter for screening mammogram for malignant neoplasm of breast (principal)
CPT/HCPCS: 77063; 77067

== ENCOUNTER 2023-10-08 13:03 | Outpatient (AMB) | payer MEDICARE, SELFPAY ==
--- NOTE | 2023-10-08 13:07 | MHC.PC.OV ---
Vital Signs 10/08/23 13:08 Height 5 ft 4 in Weight 175 lb BMI 30.0 BP 112/76 Blood Pressure Location Lt brachial Position Sitting Pulse 76 Pulse Source Pulse Oximeter Pulse Oximetry (%) 95 Oxygen Delivery Method Room Air Intake Visit Reasons: 1 Month F/u Intake Note: Pt is here today for 1 month follow up visit. Allergies Sulfa (Sulfonamide Antibiotics) Adverse Reaction (Verified 10/08/23 13:08) hives Medication List - Last Reconciled 10/08/23 by Trinity Banuelos MD bisacodyl (Dulcolax (bisacodyl)) 20 mg (4 x 5 mg) PO ONCE 1 day polyethylene glycol 3350 (Miralax) 238 grams PO ONCE Tobacco use date assessed: 08/12/23 HPI 1 Month F/u HPI Details Pt presents for f/u of chronic iron-deficiency anemia, feeling better since started taking supplement. Patient has colonoscopy scheduled. She complains of bilateral knee pain after walking longer distance but denies pain at rest or joint swelling. PFSH Family History Daughter Mental health disorder Social History Household Members Other:: , 3 children, lives with daughter, Housing: Condominium Patient Tobacco Use Status: Former Tobacco user e-Cigarette/Vaping Use: Never Used service: No Current occupational status: retired Cognitive needs: No Hearing needs: No Vision needs: Yes Questionnaire Thrive Questionnaire Date Thrive assessed: 08/12/23 STEPHIE-7 AMB Questionnaire STEPHIE-7 Date STEPHIE - 7 assessed: 08/12/23 Source: Developed by Drs. Vlad Caro, Kayla Mendoza, Rhett Baker and colleagues, with an educational zeb from [employer]. Review of Systems Const All systems reviewed & are unremarkable except as noted in HPI and below Reports no additional complaints Eyes Reports no additional complaints ENT Reports no additional complaints Card Reports no additional complaints Resp Reports no additional complaints GI Reports no additional complaints Reports no additional complaints Physical exam (Primary Care) Vital Signs: Last Vital Signs Pulse 76 10/08/23 13:08 BP 112/76 10/08/23 13:08 Pulse Ox 95 10/08/23 13:08 Oxygen Delivery Method Room Air 10/08/23 13:08 BMI result Body Mass Index 30.0 Tobacco/Smoking Status: Tobacco use Status Tobacco use date assessed 08/12/23 10/08/23 13:08 Patient Tobacco Use Status Former Tobacco user 10/08/23 13:08 e-Cigarette/Vaping Use Never Used 10/08/23 13:08 Thrive Assessment: Date of Thrive Assessment Date Thrive assessed 08/12/23 10/08/23 13:08 Const General: no acute distress [facility] General nose exam: Normal external nose present Neck Neck: Yes supple Resp Effort & Inspection: normal respiratory effort Auscultation: clear to auscultation bilaterally Cardio Rhythm: regular rhythm Heart sounds: S1 normal heart sound present and S2 normal heart sound present GI Inspection: Yes normal to inspection Palpation (GI): Soft to palpation Percussion: Yes normal to percussion Auscultation: normal bowel sounds Assessment and Plan Assessment & Plan (1) Anemia: Comment: Iron deficiency Code(s): D64.9 - Anemia, unspecified Qualifiers: Anemia type: iron deficiency Iron deficiency anemia type: inadequate dietary iron intake Qualified Code(s): D50.8 - Other iron deficiency anemias Plan: Check CBC and iron count today (2) Heart murmur: Comment: ECHO 09/21 Code(s): R01.1 - Cardiac murmur, unspecified (3) Knee pain, left: Code(s): M25.562 - Pain in left knee Plan: Obtain x-rays of both knees and referred to physical therapy (4) Knee pain, right: Code(s): M25.561 - Pain in right knee (5) Dysplastic nevi: Comment: Left temporal region Code(s): D23.9 - Other benign neoplasm of skin, unspecified Plan: Referred to dermatology Orders: Orders Comprehensive Met. Panel Today D64.9 - Anemia, unspecified, R01.1 - Cardiac murmur, unspecified Complete Blood Count Auto Diff Today D64.9 - Anemia, unspecified, R01.1 - Cardiac murmur, unspecified IRON PROFILE Today D64.9 - Anemia, unspecified, R01.1 - Cardiac murmur, unspecified Vitamin B12 and Folate Today D64.9 - Anemia, unspecified, R01.1 - Cardiac murmur, unspecified Vitamin D 25-OH Total Today D64.9 - Anemia, unspecified, R01.1 - Cardiac murmur, unspecified Complete Blood Count Auto Diff 6 Months D64.9 - Anemia, unspecified IRON PROFILE 6 Months D64.9 - Anemia, unspecified Comprehensive [place]. Panel Fast 6 Months D64.9 - Anemia, unspecified XR knee standing BI Today M25.561 - Pain in right knee, M25.562 - Pain in left knee PT Evaluation and Treatment Today M25.561 - Pain in right knee Vitamin B12 and Folate 6 Months D64.9 - Anemia, unspecified Referrals Dermatology Referral D23.9 - Other benign neoplasm of skin, unspecified Coding Level of Care Code Est Pt Level 4 (33288) Diagnoses Iron deficiency anemia secondary to inadequate dietary iron intake D50.8 Anemia type: iron deficiency Iron deficiency anemia type: inadequate dietary iron intake Heart murmur R01.1 Knee pain, left M25.562 Knee pain, right M25.561 Dysplastic nevi D23.9
[2023-10-08 13:08] VITALS: BP 112/76; PULSE 76; O2SAT 95
== END 2023-10-08 15:33 | disposition home or self-care (01) ==
LOC: HO.HMGC 13:03
PROVIDERS: PCP Internal Medicine; Visit Provider Internal Medicine
DX: D50.8 Other iron deficiency anemias (principal); R01.1 Cardiac murmur, unspecified; M25.562 Pain in left knee; M25.561 Pain in right knee; D23.9 Other benign neoplasm of skin, unspecified
CPT/HCPCS: 99214

== ENCOUNTER 2023-10-08 14:03 | Outpatient (REF) | payer MEDICARE, SELFPAY ==
--- NOTE | ~2023-10-08 | XR_ITS ---
EXAMINATION: XR KNEE AP STANDING CLINICAL INFORMATION: Pain in the right knee COMPARISON: None available. TECHNIQUE: AP bilateral standing view of the knees was obtained. FINDINGS: No fracture. Alignment is anatomic. There is severe narrowing of the right medial joint compartment with [id number] appearance. There is moderate to marked narrowing of the medial joint compartment of the left knee. Marginal osteophytes are seen along the lateral and medial joint compartments bilaterally. XR/XR knee standing BI IMPRESSION: 1. 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 2. Moderate to marked osteoarthritis of the medial joint compartment of the left knee.
[2023-10-08 16:07] LABS: MANUAL DIFF FLAG NO
[2023-10-08 16:36] LABS: Basophils Absolute Auto 0.1 X10*3/uL (0.0-0.2); Basophils Percent Auto 1.1 % (0-2); Eosinophils Absolute Auto 0.3 X10*3/uL (0.0-0.4); Eosinophils Percent Auto 3.9 % (0-4); Hematocrit 40.6 % (37.0-47.0); Hemoglobin 13.2 g/dl (12.0-16.0); Imm Gran Abs Auto 0.02 X10*3/uL (0.00-0.03); Imm Gran Pct Auto 0.3 % (0.0-0.4); Lymphocytes Absolute Auto 1.6 X10*3/uL (1.2-4.9); Lymphocytes Percent Auto 24.3 % (20-40); Mean Corpuscular HGB Conc 32.5 g/dl (31.0-35.0); Mean Corpuscular Hemoglobin 30.8 pg (27.0-33.0); Mean Corpuscular Volume 94.9 fL (80.0-98.0); Mean Platelet Volume 9.2 fL (9.4-12.3); Monocytes Absolute Auto 0.7 X10*3/uL (0.1-1.2); Monocytes Percent Auto 10.6 % (2-11); Neutrophils Absolute Auto 3.8 x10*3/uL (2.0-8.3); Neutrophils Percent Auto 59.8 % (45-73); Platelet Count 430 X10*3/uL (160-400); Red Blood Count 4.28 X10*6/uL (4.20-5.50); Red Cell Distribution Width 14.2 % (11.0-16.0); White Blood Count 6.4 X10*3/uL (4.8-10.8)
[2023-10-08 17:03] LABS: Alanine Aminotransferase 16 U/L (0-31); Albumin Level 4.1 g/dL (3.5-5.0); Alkaline Phosphatase 83 U/L (39-117); Anion Gap 11 (12-20); Aspartate Amino Transferase 20 U/L (5-31); Bilirubin Total 0.2 mg/dL (0.0-1.0); Blood Urea Nitrogen 17 mg/dL (9-16); Calcium 9.9 mg/dL (8.4-10.2); Carbon Dioxide 26 mmol/L (22-29); Chloride 106 mmol/L (96-108); Estimated Glomerular Filt Rate > 60; Glucose Random 92 mg/dL (60-115); Iron 86 mcg/dL (30-160); Percent Iron Saturation 37 % (15-50); Potassium 4.3 mmol/L (3.3-5.1); Sodium 139 mmol/L (135-145); Total Iron Binding Capacity 234 mcg/dL (228-428); Total Protein 8.1 g/dL (6.5-8.0); Unsaturated Iron Binding 148 ug/dL
[2023-10-08 17:08] LABS: Vitamin D 25-OH Total 33.1 ng/mL (>30)
[2023-10-08 17:20] LABS: Folate 19.1 ng/mL (> or = 4.0); Vitamin B12 298 pg/mL (200-900)
== END 2023-10-08 14:04 | disposition home or self-care (01) ==
LOC: HO.HMGCX 14:03
PROVIDERS: PCP Internal Medicine; Visit Provider Internal Medicine
DX: M25.562 Pain in left knee (principal); M25.561 Pain in right knee; R01.1 Cardiac murmur, unspecified; D64.9 Anemia, unspecified
CPT/HCPCS: 36415; 73565; 80053; 82306; 82607; 82746; 83540; 85025

== ENCOUNTER 2023-10-14 12:56 | Outpatient (RCR) | payer MEDICARE, SELFPAY ==
--- NOTE | 2023-10-14 13:49 | MHC.PT.EP ---
[facility] [place] [facility] [place] [facility] [place] [facility] [address] Judith Robert [address] [phone] F: [phone] F: [phone] F: [phone] F: [phone] Physical Therapy Plan of Care Date of Evaluation: 10/14/23 Date of Surgery: n/a Diagnosis: pain in R knee Assessment: Patient is a 73 year old female presenting to PT with complaints of pain in her R knee. Pt reports onset of pain began about 3 weeks ago due to doing a lot of stairs when on vacation. She presents today with impairments in pain, ROM, knee strength, hip strength. 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 Pt expresses detention goal of reducing pain, and is motivated to work towards this in PT. Clinical presentation today is most consistent with signs and sx associated with R knee pain and pt will benefit from skilled PT 2 week x 4 weeks to address the following problems and impairments noted upon evaluation: pain, ROM, knee strength, hip strength. These problems limit the patient with the following functional activities: ADLs, stair negotiation, ambulating, squatting. The prescribed treatment plan of care is medically necessary. Co-morbidities of none were identified and taken into considerations of plan of care. Pt was educated on HEP, role of PT, prognosis, POC. Frequency and Duration: The patient will be seen 2 x week x 4 weeks Short Term Goals: Pt will demonstrate improved hip MMT strength by 1/3 grade in 2 weeks for improved lumbopelvic stability. Pt will demonstrate improved R knee MMT strength by 1/3 grade in 2 weeks. 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 Hospital Product Specialist Goals: Pt will demonstrate improved LEFI core by 9 points in 4 weeks for improved functional mobility. Pt will demonstrate ability to squat with min to no difficulty in 4 weeks for improved ability to complete household duties. Pt will demonstrate ability to negotiate stairs with min to no pain in 4 weeks for improved access to her home. Treatment Plan: Modalities to reduce pain, spasms and effusion. Manual therapy to restore motion and function. Therapeutic exercise to improve strength and flexibility. Neuromuscular re-education for posture and balance. Therapeutic activities to return to functional activities of daily living. Electronically signed by: Coleen Vega PT, DPT, ATC Please sign and return to therapist. Thank you for your referral.
--- NOTE | 2023-10-23 13:14 | MHC.PT.DC ---
[facility] [place] [facility] [place] Office [place] Office [address] [phone] F: [phone] F: [phone] F: [phone] F: [phone] Physical Therapy Discharge Report Diagnosis: pain in R knee Date of Surgery: n/a Date of Evaluation: 10/14/23 Date of Discharge: 10/23/23 Treatments to Date: 1 Cancellations to Date: 0 No Shows to Date: 0 Discharge Status: Recommend MD Follow-up Discharge Summary: Pt called stating she had emergency gallbladder surgery. Pt to be d/c due to change in status. Electronically signed by: Coleen Vega, PT, DPT, ATC Please sign and return to therapist. Thank you for your referral.
== END 2023-10-23 13:14 | disposition home or self-care (01) ==
LOC: HO.PTCHIC 12:56
PROVIDERS: PCP Internal Medicine; Visit Provider Internal Medicine
DX: M25.561 Pain in right knee (principal)
CPT/HCPCS: 97110; 97161

== ENCOUNTER 2023-10-20 14:28 | Inpatient (IN) | payer MEDICARE, SELFPAY ==
[2023-10-20] VITALS (7 sets, daily range): BP systolic 116–129; BP diastolic 66–78; PULSE 93–105; RESP 14–18; TEMP 36.4–37.3; O2SAT 92–96
--- NOTE | ~2023-10-20 | NM_ITS ---
EXAMINATION: BILIARY TRACT IMAGING STUDY CLINICAL INFORMATION: Status post cholecystectomy with suspected bile leak.. COMPARISON: No previous biliary scan is available for comparison. Abdominal ultrasound dated 10/20/2023 prior to the patient's cholecystectomy is available for comparison.. TECHNIQUE: Serial gamma scintillation camera images were obtained over the abdomen for a total observation period of 4.5 hours following the intravenous administration of 5 mCi Tc-99m Mebrofenin. FINDINGS: There is good concentration of activity in the liver by 5 minutes post injection. Biliary activity is visualized by 10 minutes. Small bowel is well visualized by 15 minutes. The gallbladder has been resected and is not visualized. As a study progresses there is increasing accumulation of activity in the small bowel as well as some reflux of biliary activity into the stomach. At 1 hour, there is only minimal activity in the liver and almost all the activity is visualized in the stomach or small bowel. The delayed images obtained at 4.5 hours post injection show almost complete clearance of activity from the liver and visualization of diffuse small bowel activity as well as some faint gastric activity. A single image of the delayed 4.5 hours series shows activity external to the patient with a marker labeled BULB. This activity likely represents a small amount of biliary activity the past through a drain into the collection bulb, but this is the only such activity visualized. NM/NM hepatobiliary wo pharm IMPRESSION: Status post cholecystectomy with normal biliary drainage through the common bile duct into the gastrointestinal tract. Very faint activity on a single late delayed image external to the patient is present as described above and is most consistent with activity accumulating from a biliary drain. However there is no accumulation adjacent to the liver that suggests a significant biliary leak. Liver function appears normal.
--- NOTE | ~2023-10-20 | US_ITS ---
EXAMINATION: US ABDOMEN LIMITED CLINICAL INFORMATION: Right upper quadrant pain. COMPARISON: None available. TECHNIQUE: Real-time imaging of the right upper quadrant abdominal viscera. FINDINGS: PANCREAS: The pancreas is homogeneous echotexture. There is a anechoic cyst suspected adjustment of the head of pancreas measuring 2.7 x 2.3 x 2.9 cm. LIVER: The liver is normal in size. The liver contour is normal. Parenchymal echogenicity is normal. Is anechoic cyst right hepatic lobe measuring 2.1 x 1.7 x 2.1 cm.. There is no intrahepatic biliary duct dilatation seen. Normal hepatopedal flow seen in the main portal vein on Doppler exam. GALLBLADDER: There are multiple echogenic stones with the largest measuring 2.3 x 2.0 cm. There is gas and and calcification resulting in echogenic shadowing. Findings are suspicious for emphysematous cholecystitis. The gallbladder wall thickness is 0.6 cm. The entire gallbladder borders are not clearly visualized due to significant shadowing. COMMON BILE DUCT: Normal in caliber measuring 0.7 cm in diameter. RIGHT KIDNEY: Normal. No hydronephrosis. No renal calculi or focal parenchymal lesions. The kidney measures 1.0 cm in maximum dimension. FREE FLUID: None. US/US abdomen limited IMPRESSION: 1. Findings suspicious for emphysematous cholecystitis. 2. Small cyst in the head of the pancreas and right hepatic lobe. 3. Right kidney and CBD is unremarkable.
--- NOTE | 2023-10-20 14:32 | ED_ITS ---
HPI - General Adult General Chief complaint: Abdominal Pain Stated complaint: Needs ultrasound of Gallbladder sent by UC Time Seen by Provider: 10/20/23 17:06 Source: patient, RN notes reviewed and old records reviewed Mode of arrival: ambulatory Limitations: no limitations History of Present Illness HPI narrative: 73-year-old female who denies any past medical history presents for evaluation of abdominal pain. Patient reports 2 days of right upper abdominal pain. She has had decreased appetite and diarrhea but denies nausea or vomiting. She went to urgent care and was referred to the ER for further evaluation. Patient denies any fevers or chills. Denies any history of abdominal surgeries No other complaints or concerns at this time Related Data Previous Rx's Medication Instructions Recorded bisacodyl 5 mg tablet,delayed 20 mg (4 x 5 mg) PO ONCE 1 day #4 09/06/23 release (Dulcolax (bisacodyl)) tabs polyethylene glycol 3350 17 238 g PO ONCE #238 grams 09/06/23 gram/dose oral powder (Miralax) Allergies Allergy/AdvReac Type Severity Reaction Status Date / Time Sulfa (Sulfonamide AdvReac hives Verified 10/20/23 14:31 Antibiotics) Review of Systems 2 Constitutional: Constitutional: Denies chills, Denies fever(s) and Denies headache(s) Eyes: Eyes: Denies blurry vision ENT: Denies headache(s) and Denies sore throat Cardiovascular: Cardiovascular: Denies chest pain and Denies dyspnea Respiratory: Respiratory: Denies cough and Denies dyspnea Gastrointestinal: Gastrointestinal: Reports abdominal pain, Reports diarrhea, Reports loose stools, Denies nausea and Denies vomiting Musculoskeletal: Musculoskeletal: Denies back pain Integumentary/Breasts: Skin/Breast: Denies rash Neurologic: Denies headache(s) [facility] Family History Family History Daughter Mental health disorder Social History Social History Household Members Other:: , 3 children, lives with daughter, [facility] Alcohol intake: current Alcohol intake frequency: 0-2 drinks per day Alcohol type: wine Patient Tobacco Use Status: Former Tobacco user Smoked in Last 30 Days: No e-Cigarette/Vaping Use: Never Used Use of substances other than those prescribed or required for medical reasons: No Advance Directives: No Advance Directives Information Provided: No service: No Current occupational status: retired Cognitive needs: No Hearing needs: No Vision needs: Yes Physical Exam ED Vital Signs: Vital Signs - 24 hr 10/20/23 14:32 10/20/23 17:21 Temperature 97.6 F Pulse Rate 105 H 94 Respiratory Rate 18 18 Blood Pressure 129/78 119/71 Pulse Oximetry 96 95 Oxygen Delivery Method Room Air Room Air BMI result Body Mass Index 30.0 Const General: healthy appearing, comfortable, no acute distress, alert and awake Nutritional Appearance: well nourished Orientation/consciousness: patient oriented x3 HENMT Head: Yes normocephalic and Yes atraumatic Eyes Eyelids: Yes eyelids normal Conjunctivae: conjunctivae normal Sclerae: sclerae normal Corneas: corneas normal Pupils: Equal, round and reactive pupils present EOM: EOMs intact bilaterally Neck Neck: Yes full ROM Resp Effort & Inspection: normal respiratory effort, able to speak in complete sentences and not labored Cardio Rate: regular rate Rhythm: regular rhythm GI Inspection: Yes distended Palpation (GI): Soft to palpation, Tenderness to palpation present (GI) in the RUQ and Cramer's sign positive, Guarding due to palpation present (GI) and not rigid Percussion: No Fluid wave present Skin General skin exam: elasticity normal Neuro General: patient oriented x3 Cranial nerves: Yes Equal, round and reactive pupils present and Yes Bilaterally intact EOM present Cognition (Neuro): normal cognition Extrem Other: Moving all extremities well without any obvious deformities Course Course Course Narrative: RME:?73 yo female here w/ RUQ pain x2 days. no change in pain with eating. pain worse w/ movement. admits to anorexia and one episode of loose stools this am. denies fever, chills, dysuria, hematuria. Seen at urgent care who advised patient to come to the ED for ultrasound. basic labs and RUQ US ordered. Full HPI, ROS and PE to be performed by the primary ED provider. Medical Decision Making Medical Decision Making MDM Narrative: 73-year-old female who denies any past medical history presents for evaluation of right upper quadrant abdominal pain for the last 2 days. On exam she is quite tender in the right upper quadrant positive Cramer's sign, her white count is 14.8 K. ultrasound is concerning for emphysematous cholecystitis. She is slightly tachycardic to 105 otherwise vital signs are within normal limits. Plan to administer Zosyn and discuss with general surgery for likely admission due to cholecystitis Differential Diagnosis Differential Diagnoses: The differential diagnosis associated with the presentation includes Acute cholecystitis Cholelithiasis Pancreatitis Abdominal pain Gastroenteritis Admission/Observation Consideration of admission/observation: Escalation of care including admission/observation considered Discussed with general surgery for admission due to cholecystitis Consult Healthcare Provider Management of the patient was discussed with: Director Of Math (General surgery, Dr. Bush) Lab Data MDM Lab Attestation statement: I reviewed the patient's lab results. Leukocytosis to 14.8 K. with a left shift. The patient has a normal hemoglobin but a slight low hematocrit of 36.4. This is consistent with her recent baseline. Sodium is slightly low at 134 which may be related to diarrhea. LFTs within normal limits 10/20/23 14:41 10/20/23 14:41 Labs: Lab Results 10/20/23 Range/Units 14:41 WBC 14.8 H (4.8-10.8) X10*3/uL RBC 3.96 L (4.20-5.50) X10*6/uL Hgb 12.3 (12.0-16.0) g/dl Hct 36.4 L (37.0-47.0) % MCV 91.9 (80.0-98.0) fL MCH 31.1 (27.0-33.0) pg MCHC 33.8 (31.0-35.0) g/dl RDW 14.0 (11.0-16.0) % Plt Count 309 D (160-400) X10*3/uL MPV 8.7 L (9.4-12.3) fL Immature Gran % (Auto) 0.6 H (0.0-0.4) % Neut % (Auto) 85.0 H (45-73) % Lymph % (Auto) 8.6 L (20-40) % [place] % (Auto) 5.5 (2-11) % Eos % (Auto) 0.0 (0-4) % Baso % (Auto) 0.3 (0-2) % Lymph # (Auto) 1.3 (1.2-4.9) X10*3/uL [place] # (Auto) 0.8 (0.1-1.2) X10*3/uL Eos # (Auto) 0.0 (0.0-0.4) X10*3/uL Baso # (Auto) 0.0 (0.0-0.2) X10*3/uL Abs Immat Gran (auto) 0.09 H (0.00-0.03) X10*3/uL Absolute Neuts (auto) 12.6 H (2.0-8.3) x10*3/uL Absolute Nucleated RBC 0.000 (0.0-0.012) X10*3/uL Nucleated RBC % (auto) 0.0 (0.0-0.2) /100WBC Sodium 134 L (135-145) mmol/L Potassium 3.9 (3.3-5.1) mmol/L Chloride 99 (96-108) mmol/L Carbon Dioxide 25 (22-29) mmol/L Anion Gap 14 (12-20) BUN 16 (9-16) mg/dL Creatinine 0.82 (0.5-1.4) mg/dL Estim Creat Clear Calc 61.3 Estimated GFR > 60 Random Glucose 112 (60-115) mg/dL Calcium 10.7 H D (8.4-10.2) mg/dL Magnesium 2.1 (1.6-2.6) mg/dL Total Bilirubin 0.5 (0.0-1.0) mg/dL AST 17 (5-31) U/L ALT 14 (0-31) U/L Alkaline Phosphatase 65 (39-117) U/L Total Protein 7.8 (6.5-8.0) g/dL Albumin 3.8 (3.5-5.0) g/dL Lipase 13 (8-78) U/L Radiology Impression Discussion of test interpretation with radiology: I have reviewed the radiologist's reading. (Findings suspicious for emphysematous cholecystitis) Discharge Plan Discharge Clinical Impression: Acute emphysematous cholecystitis Patient Disposition: Admitted As Inpatient Prescriptions: No Action bisacodyl [Dulcolax (bisacodyl)] 5 mg tablet,delayed release (DR/EC) 20 mg PO ONCE 1 Days Qty: 4 0RF Rx Instructions: take 4 tabs at noon the day before your colonoscopy polyethylene glycol 3350 [Miralax] 17 gram/dose powder 238 g PO ONCE Qty: 238 0RF Rx Instructions: As directed by gastroenterology department at [facility]
[2023-10-20 14:45] LABS: MANUAL DIFF FLAG NO
[2023-10-20 14:46] LABS: Basophils Percent Auto 0.3 % (0-2); Hematocrit 36.4 % (37.0-47.0); Hemoglobin 12.3 g/dl (12.0-16.0); Imm Gran Abs Auto 0.09 X10*3/uL (0.00-0.03); Imm Gran Pct Auto 0.6 % (0.0-0.4); Lymphocytes Absolute Auto 1.3 X10*3/uL (1.2-4.9); Lymphocytes Percent Auto 8.6 % (20-40); Mean Corpuscular HGB Conc 33.8 g/dl (31.0-35.0); Mean Corpuscular Hemoglobin 31.1 pg (27.0-33.0); Mean Corpuscular Volume 91.9 fL (80.0-98.0); Mean Platelet Volume 8.7 fL (9.4-12.3); Monocytes Absolute Auto 0.8 X10*3/uL (0.1-1.2); Monocytes Percent Auto 5.5 % (2-11); Neutrophils Absolute Auto 12.6 x10*3/uL (2.0-8.3); Platelet Count 309 X10*3/uL (160-400); Red Blood Count 3.96 X10*6/uL (4.20-5.50); White Blood Count 14.8 X10*3/uL (4.8-10.8)
[2023-10-20 14:59] LABS: Alanine Aminotransferase 14 U/L (0-31); Albumin Level 3.8 g/dL (3.5-5.0); Alkaline Phosphatase 65 U/L (39-117); Anion Gap 14 (12-20); Aspartate Amino Transferase 17 U/L (5-31); Bilirubin Total 0.5 mg/dL (0.0-1.0); Blood Urea Nitrogen 16 mg/dL (9-16); Calcium 10.7 mg/dL (8.4-10.2); Carbon Dioxide 25 mmol/L (22-29); Chloride 99 mmol/L (96-108); Creatinine Clr Calc Pharmacy 61.3; Estimated Glomerular Filt Rate > 60; Glucose Random 112 mg/dL (60-115); Lipase 13 U/L (8-78); Magnesium 2.1 mg/dL (1.6-2.6); Potassium 3.9 mmol/L (3.3-5.1); Sodium 134 mmol/L (135-145); Total Protein 7.8 g/dL (6.5-8.0)
--- NOTE | 2023-10-20 17:22 | ECG_ITS ---
Test Reason : abdominal pain Blood Pressure : / mmHG Vent. Rate : 084 BPM Atrial Rate : 084 BPM P-R Int : 140 ms QRS Dur : 082 ms QT Int : 376 ms P-R-T Axes : 023 000 029 degrees QTc Int : 444 ms Normal sinus rhythm Normal ECG No previous ECGs available Referred By: Ramos Chamorro Electronically Signed By:Aram Ash
[2023-10-20] MEDS: 0.9 % Sodium Chloride 1,000 ML 999 ML IV (17:30)
[2023-10-20] MEDS: Acetaminophen 325 MG TABLET 650 MG PO (17:33)
[2023-10-20] MEDS: Piperacillin Sodium/Tazobactam 3.375 GM in 0.9 % Sodium Chloride 50 ML IV (17:34)
[2023-10-20 18:02] LABS: Appearance Urine Cloudy; Color Urine Yellow; Glucose Urine UA Negative (Negative); Leukocyte Esterase Urine Moderate (2+) (Negative); Nitrite Urine Negative (Negative); PH 5.5 (5.0-9.0); Specific Gravity - Urine 1.015 (1.005-1.025); UMIC TRIGGER UACC YES; Urine Blood Small (1+) (Negative); Urine Ketones Negative (Negative); Urine Protein 30 (1+) mg/dL (Neg-Trace)
--- NOTE | 2023-10-20 18:07 | P.HPGS_ITS ---
History of Present Illness History of Present Illness Date of Service: 10/20/23 Chief complaint: Needs ultrasound of Gallbladder sent by Narrative: Nuvia Smith is a 73 year old female who presents to the emergency room with 48 hour history of abdominal pain some nausea and vomiting no fever no chills. She has never had pain like this before. In the emergency room her white count is elevated at 14 her LFTs were normal but tender in the right upper quadrant. Of ultrasound shows changes consistent with emphysematous cholecystitis and gallstones. Common bile duct is around 0.7 which is normal for her age. Review of Systems Review of Systems: Yes all other systems are reviewed and are negative PMFSH Family History Family History Daughter Mental health disorder Social History Social History Household Members Other:: , 3 children, lives with daughter, Housing: Condominium Alcohol intake: current Alcohol intake frequency: 0-2 drinks per day Alcohol type: wine Patient Tobacco Use Status: Former Tobacco user Smoked in Last 30 Days: No e-Cigarette/Vaping Use: Never Used Use of substances other than those prescribed or required for medical reasons: No Advance Directives: No Advance Directives Information Provided: No service: No Current occupational status: retired Cognitive needs: No Hearing needs: No Vision needs: Yes Meds Allergies Allergy/AdvReac Type Severity Reaction Status Date / Time Sulfa (Sulfonamide AdvReac hives Verified 10/20/23 14:31 Antibiotics) Active Medications: Current Medications Sodium Chloride (Ns) 1,000 mls @ 999 mls/hr IV .Q1H1M MELAINA Stop: 10/20/23 18:30 Last Admin: 10/20/23 17:30 Dose: 999 mls/hr Physical Exam Vital Signs: Vital Signs: Last Vital Signs Temp 97.6 F 10/20/23 14:32 Pulse 94 10/20/23 17:21 Resp 18 10/20/23 17:21 BP 119/71 10/20/23 17:21 Pulse Ox 95 10/20/23 17:21 O2 Del Method Room Air 10/20/23 17:21 BMI result Body Mass Index 30.0 Const: General: cooperative, healthy appearing, comfortable and no acute distress Orientation/consciousness: patient oriented x3 Eyes: Other: Nonicteric Resp: Effort & Inspection: normal respiratory effort and able to speak in complete sentences Auscultation: clear to auscultation bilaterally Cardio: Rate: regular rate Rhythm: regular rhythm GI: Other: Abdomen is soft mildly distended tender in the right upper quadrant with guarding no peritoneal signs active bowel sounds Skin: Other: Nonicteric Neuro: General: patient oriented x3 Cranial nerves: Yes CN's II-XII intact bilaterally Extrem: General: Yes normal to inspection Psych: Appearance: grossly normal Mental Status: mental status grossly normal Speech and movement: Normal speech and movement present Affect: normal affect Attitude: cooperative Thought process: Normal thought process present Thought content: Normal thought content present Insight: Good insight present (Psych) Judgement: Good judgement present (Psych) Results Results Labs: Short CBC 10/20/23 Range/Units 14:41 WBC 14.8 H (4.8-10.8) X10*3/uL Hgb 12.3 (12.0-16.0) g/dl Hct 36.4 L (37.0-47.0) % Plt Count 309 D (160-400) X10*3/uL BMP 10/20/23 14:41 Sodium 134 L Potassium 3.9 Chloride 99 Carbon Dioxide 25 BUN 16 Creatinine 0.82 Calcium 10.7 H D Liver Function 10/20/23 Range/Units 14:41 Total Bilirubin 0.5 (0.0-1.0) mg/dL AST 17 (5-31) U/L ALT 14 (0-31) U/L Alkaline Phosphatase 65 (39-117) U/L Albumin 3.8 (3.5-5.0) g/dL Urine 10/20/23 Range/Units 17:44 Urine Color Yellow Urine Appearance Cloudy Urine pH 5.5 (5.0-9.0) Ur Specific [place] 1.015 (1.005-1.025) Urine Protein 30 (1+) H (Neg-Trace) mg/dL Urine Glucose (UA) Negative (Negative) mg/dL Assessment and Plan (1) Acute emphysematous cholecystitis: Status: Acute Plan Female with acute cholecystitis with benefit from laparoscopic cholecystectomy. Risks and benefits were discussed with the patient including but not limited to bleeding infection possible open procedure possible common bile duct injury possible other organ bowel injury possible bile duct leak and she understands and agrees with the above plan. IV antibiotics will be given and will take her to the operating room. Quality Stroke Does the patient have a stroke diagnosis?: No VTE Prior VTE?: No VTE Risk Level:: Surgical - low VTE Device Contraindication: N/A - Device Ordered VTE Drug Contraindication: Treatment Not Indicated Procedures Date of Service Date of Service: 10/20/23
[2023-10-20 18:14] LABS: Bacteria Urine 3+ (None Seen); Hyaline Casts Urine 0-2 /LPF (0-2); RBC Urine 0-2 /HPF (0-2); Squamous Epithelial Cell Urine >20 /HPF (0-2); UACC Culture Trigger YES; WBC Urine >50 /HPF (0-5)
[2023-10-20 18:24] LABS: INTERNATIONAL NORM RATIO 1.5 (0.9-1.1); Prothrombin Time 18.5 SEC (11.1-13.3)
--- NOTE | 2023-10-20 19:50 | HO.ANESPROP2 ---
[facility] Active Problems Active Problems: All Active Problems (Updated 10/20/23 @ 17:35 by Ramos Chamorro) Acute emphysematous cholecystitis (Acute) Dysplastic nevi (Acute) Knee pain, left (Acute) Knee pain, right (Acute) Heart murmur (Acute) Anxiety (Acute) Anemia (Acute) Fatigue (Acute) Bacteriuria (Acute) Vitamin D deficiency (Acute) Annual physical exam (Acute) Postmenopausal (Acute) Knee pain, bilateral (Acute) Past Medical History Functional capacity: independent ambulation Patient : No Family History Family History Daughter Mental health disorder Family history of problems with anesthesia: No Surgical History History of Problems with Anesthesia: No Social History Social History Household Members Other:: , 3 children, lives with daughter, Housing: Condominium Alcohol intake: current Alcohol intake frequency: 0-2 drinks per day Alcohol type: wine Patient Tobacco Use Status: Former Tobacco user e-Cigarette/Vaping Use: Never Used service: No Current occupational status: retired Cognitive needs: No Hearing needs: No Vision needs: Yes Meds Allergies Allergy/AdvReac Type Severity Reaction Status Date / Time Sulfa (Sulfonamide AdvReac hives Verified 10/20/23 14:31 Antibiotics) Exam Height,Weight and Vital Signs: Height 5 ft 4 in Weight 79.379 kg Last Vital Signs Temp 97.6 F 10/20/23 14:32 Pulse 94 10/20/23 17:21 Resp 18 10/20/23 17:21 BP 119/71 10/20/23 17:21 Pulse Ox 95 10/20/23 17:21 O2 Del Method Room Air 10/20/23 17:21 Pertinent Lab Results Pertinent Lab Results: Laboratory Tests 10/20/23 10/20/23 10/20/23 14:41 17:44 18:10 WBC 14.8 H RBC 3.96 L Hgb 12.3 Hct 36.4 L MCV 91.9 MCH 31.1 MCHC 33.8 RDW 14.0 Plt Count 309 D MPV 8.7 L Immature Gran % (Auto) 0.6 H Neut % (Auto) 85.0 H Lymph % (Auto) 8.6 L [place] % (Auto) 5.5 Eos % (Auto) 0.0 Baso % (Auto) 0.3 Lymph # (Auto) 1.3 [place] # (Auto) 0.8 Eos # (Auto) 0.0 Baso # (Auto) 0.0 Abs Immat Gran (auto) 0.09 H Absolute Neuts (auto) 12.6 H Absolute Nucleated RBC 0.000 Nucleated RBC % (auto) 0.0 PT 18.5 H INR 1.5 H Sodium 134 L Potassium 3.9 Chloride 99 Carbon Dioxide 25 Anion Gap 14 BUN 16 Creatinine 0.82 Estim Creat Clear Calc 61.3 Estimated GFR > 60 Random Glucose 112 Calcium 10.7 H D Magnesium 2.1 Total Bilirubin 0.5 AST 17 ALT 14 Alkaline Phosphatase 65 Total Protein 7.8 Albumin 3.8 Lipase 13 Urine Color Yellow Urine Appearance Cloudy Urine pH 5.5 Ur Specific [place] 1.015 Urine Protein 30 (1+) H Urine Glucose (UA) Negative Urine Ketones Negative Urine Blood Small (1+) H Urine Nitrite Negative Ur Leukocyte Esterase Moderate (2+) H Urine RBC 0-2 Urine WBC >50 H Ur Squamous Epith Cells >20 Urine Bacteria 3+ Hyaline Casts 0-2 Blood Type O Positive Antibody Screen NEGATIVE Airway Mallampati Class: II TM Dist: >3cm Neck ROM: Full Heart: RRR Lungs: CTA Assessment and Plan Assessment Anesthesia Assessment: Anesthesia Plan Discussed Final Anesthetic Review Family History of Problems with Anesthesia: No History of Problems with Anesthesia: No NPO: Yes ASA Class: III and Emergency Final Preanesthetic Review: Meds/Allgs Chart Reviewed, Consent Obtained/Reviewed and Anes Risks/Benef Reviewed Patient Risk: Intermediate Procedure Risk: Intermediate Anesthetic Plan Anesthetic Plan: GA Disposition: Standard PACU
--- NOTE | 2023-10-20 19:54 | PC.NURSE ---
report given to OR. pt to be transported over by RN.
[2023-10-21] VITALS: BP 117/67; PULSE 93; RESP 14; TEMP 36.9; O2SAT 96
[2023-10-21 00:15] VITALS: BP 114/69; PULSE 85; RESP 18; TEMP 36.2; O2SAT 96
[2023-10-21] MEDS: 0.9 % Sodium Chloride 1,000 ML 100 ML IVCONT ×3 (00:20→22:53)
[2023-10-21] MEDS: Piperacillin Sodium/Tazobactam 3.375 GM in 0.9 % Sodium Chloride 50 ML IV ×5 (00:29→23:25)
[2023-10-21] MEDS: Morphine Sulfate 4 MG/ML CARTRIDGE IVPUSH (00:46)
[2023-10-21 03:10] VITALS: BP 112/66; PULSE 75; RESP 18; TEMP 36.3; O2SAT 97
--- NOTE | 2023-10-21 04:36 | PC.NURSE ---
0400 ambulated pt to bathroom voided 400cc adan urine MACIEL drain emptied for 100 cc bloody drainage.DTV #2 at 1000.
[2023-10-21] MEDS: Pantoprazole Sodium 40 MG/10 ML VIAL IVPUSH (05:23)
[2023-10-21] MEDS: Acetaminophen 1,000 MG/100 ML PIGGYBACK 400 MG IV ×4 (05:23→22:53)
[2023-10-21 05:44] LABS: MANUAL DIFF FLAG NO
[2023-10-21 05:50] LABS: Basophils Percent Auto 0.4 % (0-2); Eosinophils Percent Auto 0.4 % (0-4); Hematocrit 32.6 % (37.0-47.0); Hemoglobin 10.8 g/dl (12.0-16.0); Imm Gran Abs Auto 0.06 X10*3/uL (0.00-0.03); Imm Gran Pct Auto 0.6 % (0.0-0.4); Lymphocytes Absolute Auto 0.5 X10*3/uL (1.2-4.9); Lymphocytes Percent Auto 4.5 % (20-40); Mean Corpuscular HGB Conc 33.1 g/dl (31.0-35.0); Mean Corpuscular Hemoglobin 31.5 pg (27.0-33.0); Mean Platelet Volume 9.4 fL (9.4-12.3); Monocytes Absolute Auto 0.6 X10*3/uL (0.1-1.2); Monocytes Percent Auto 5.3 % (2-11); Neutrophils Absolute Auto 9.2 x10*3/uL (2.0-8.3); Neutrophils Percent Auto 88.8 % (45-73); Platelet Count 310 X10*3/uL (160-400); Red Blood Count 3.43 X10*6/uL (4.20-5.50); Red Cell Distribution Width 13.9 % (11.0-16.0); White Blood Count 10.4 X10*3/uL (4.8-10.8)
[2023-10-21 06:08] LABS: Alanine Aminotransferase 28 U/L (0-31); Alkaline Phosphatase 55 U/L (39-117); Anion Gap 14 (12-20); Aspartate Amino Transferase 39 U/L (5-31); Bilirubin Total 0.4 mg/dL (0.0-1.0); Blood Urea Nitrogen 14 mg/dL (9-16); Calcium 9.1 mg/dL (8.4-10.2); Carbon Dioxide 21 mmol/L (22-29); Chloride 105 mmol/L (96-108); Creatinine Clr Calc Pharmacy 75.1; Estimated Glomerular Filt Rate > 60; Glucose Random 137 mg/dL (60-115); Potassium 4.4 mmol/L (3.3-5.1); Sodium 136 mmol/L (135-145); Total Protein 6.6 g/dL (6.5-8.0)
[2023-10-21 07:05] VITALS: BP 114/70; PULSE 76; RESP 16; TEMP 36.1; O2SAT 95
[2023-10-21] MEDS: Docusate Sodium 100 MG CAPSULE PO ×2 (08:02→19:57)
--- NOTE | 2023-10-21 08:42 | PM.PNGS ---
Subjective Subjective Date of Service: 10/21/23 <Reva Lua PA-C - Last Filed: 10/21/23 08:46> 10/21/23 <Jameson Willoughby MD - Last Filed: 10/21/23 10:36> Interval history: Feels significantly improved. Very mild incisional pain. Denies nausea. OOB and ambulating. <Reva Lua PA-C - Last Filed: 10/21/23 08:46> Physical Exam Vital Signs: Vital Signs: Last Vital Signs Temp 97 F 10/21/23 07:05 Pulse 76 10/21/23 07:05 Resp 16 10/21/23 07:05 BP 114/70 10/21/23 07:05 Pulse Ox 95 10/21/23 07:05 O2 Del Method Room Air 10/21/23 07:05 O2 Flow Rate 2 10/21/23 03:10 BMI result Body Mass Index 30.0 <Reva Lua PA-C - Last Filed: 10/21/23 08:46> Const: General: comfortable, no acute distress and alert <Reva Lua PA-C - Last Filed: 10/21/23 08:46> Orientation/consciousness: patient oriented x3 <Reva Lua PA-C - Last Filed: 10/21/23 08:46> Resp: Effort & Inspection: normal respiratory effort <Reva Lua PA-C - Last Filed: 10/21/23 08:46> GI: Other: MACIEL output bilious appearing <Reva Lua PA-C - Last Filed: 10/21/23 08:46> Inspection: Yes incision (dressing c/d/i) <MICHELLE Scales Last Filed: 10/21/23 08:46> Palpation (GI): Soft to palpation, Tenderness to palpation present (GI) (mild incisional), no guarding and not rigid <MICHELLE Scales Last Filed: 10/21/23 08:46> Percussion: Yes normal to percussion <MICHELLE Scales Last Filed: 10/21/23 08:46> Skin: General skin exam: no rashes or lesions noted and no jaundice <Reva Lua PA-C - Last Filed: 10/21/23 08:46> Neuro: General: patient oriented x3 and moves all extremities <Reva Lua PA-C - Last Filed: 10/21/23 08:46> Objective Data Active Medications Docusate Sodium (Docusate Sodium 100 Mg Capsule) 100 mg PO BID [facility] Last Admin: 10/21/23 08:02 Dose: 100 mg Documented By: BULMARO Sodium Chloride (Ns) 1,000 mls @ 100 mls/hr IVCONT .Q10H [facility] Last Admin: 10/21/23 08:06 Dose: 100 mls/hr Documented By: BULMARO Piperacillin Sod/Tazobactam (Sod 3.375 gm/ Sodium Chloride) 50 mls @ 100 mls/hr IV Q6H [facility] Last Infusion: 10/21/23 06:17 Dose: Infused Documented By: JOHN Acetaminophen (Ofirmev) 1,000 mg in 100 mls @ 400 mls/hr IV Q6H [facility] Last Infusion: 10/21/23 05:40 Dose: Infused Documented By: JOHN Morphine Sulfate (Morphine Sulfate 4 Mg/Ml Cartridge) 4 mg IVPUSH Q3H PRN; Protocol PRN Reason: Pain, Severe (Pain Scale 7-10) Last Admin: 10/21/23 00:46 Dose: 4 mg Documented By: JOHN Ondansetron HCl (Ondansetron Hcl 4 Mg/2 Ml Vial) 4 mg IVPUSH Q8H PRN PRN Reason: Nausea and Vomiting Oxycodone HCl (Oxycodone Hcl Immed Release 5 Mg Tablet) 10 mg PO Q4H PRN PRN Reason: Pain, Severe (Pain Scale 7-10) Pantoprazole Sodium (Pantoprazole Sodium 40 Mg/10 Ml Vial) 40 mg IVPUSH DAILY@0630 [facility] Last Admin: 10/21/23 05:23 Dose: 40 mg Documented By: JOHN Sodium Chloride (0.9 % Sodium Chloride Flush 3 Ml Syringe) 3 ml IVFLUSH QSHIFT [facility] Last Admin: 10/21/23 08:00 Dose: Not Given Documented By: BULMARO Non-Admin Reason: IV Running <MICHELLE Scales Last Filed: 10/21/23 08:46> Labs CBC & Chem 7: 10/21/23 05:06 10/21/23 05:06 <Reva Lua PA-C - Last Filed: 10/21/23 08:46> Labs: Laboratory Results - last 24 hr 10/20/23 10/20/23 10/20/23 14:41 17:44 18:10 MCV 91.9 MCH 31.1 MCHC 33.8 RDW 14.0 Plt Count 309 D MPV 8.7 L Immature Gran % (Auto) 0.6 H Neut % (Auto) 85.0 H Lymph % (Auto) 8.6 L [place] % (Auto) 5.5 Eos % (Auto) 0.0 Baso % (Auto) 0.3 Lymph # (Auto) 1.3 [place] # (Auto) 0.8 Eos # (Auto) 0.0 Baso # (Auto) 0.0 Abs Immat Gran (auto) 0.09 H Absolute Neuts (auto) 12.6 H Absolute Nucleated RBC 0.000 Nucleated RBC % (auto) 0.0 PT 18.5 H INR 1.5 H Anion Gap 14 Estim Creat Clear Calc 61.3 Estimated GFR > 60 Random Glucose 112 Calcium 10.7 H D Magnesium 2.1 Total Bilirubin 0.5 AST 17 ALT 14 Alkaline Phosphatase 65 Total Protein 7.8 Albumin 3.8 Lipase 13 Urine Color Yellow Urine Appearance Cloudy Urine pH 5.5 Ur Specific [place] 1.015 Urine Protein 30 (1+) H Urine Glucose (UA) Negative Urine Ketones Negative Urine Blood Small (1+) H Urine Nitrite Negative Ur Leukocyte Esterase Moderate (2+) H Urine RBC 0-2 Urine WBC >50 H Ur Squamous Epith Cells >20 Urine Bacteria 3+ Hyaline Casts 0-2 Blood Type O Positive Antibody Screen NEGATIVE 10/21/23 05:06 MCV 95.0 MCH 31.5 MCHC 33.1 RDW 13.9 Plt Count 310 MPV 9.4 Immature Gran % (Auto) 0.6 H Neut % (Auto) 88.8 H Lymph % (Auto) 4.5 L [place] % (Auto) 5.3 Eos % (Auto) 0.4 Baso % (Auto) 0.4 Lymph # (Auto) 0.5 L [place] # (Auto) 0.6 Eos # (Auto) 0.0 Baso # (Auto) 0.0 Abs Immat Gran (auto) 0.06 H Absolute Neuts (auto) 9.2 H Absolute Nucleated RBC 0.000 Nucleated RBC % (auto) 0.0 PT INR Anion Gap 14 Estim Creat Clear Calc 75.1 Estimated GFR > 60 Random Glucose 137 H Calcium 9.1 D Magnesium Total Bilirubin 0.4 AST 39 H ALT 28 Alkaline Phosphatase 55 Total Protein 6.6 Albumin 3.0 L Lipase Urine Color Urine Appearance Urine pH Ur Specific [place] Urine Protein Urine Glucose (UA) Urine Ketones Urine Blood Urine Nitrite Ur Leukocyte Esterase Urine RBC Urine WBC Ur Squamous Epith Cells Urine Bacteria Hyaline Casts Blood Type Antibody Screen <MICHELLE Scales Last Filed: 10/21/23 08:46> Microbiology Microbiology Results: Microbiology 10/20/23 21:18 Gram Stain - Final Bile <MICHELLE Scales Last Filed: 10/21/23 08:46> Procedures Date of Service Date of Service: 10/21/23 <Reva Lua PA-C - Last Filed: 10/21/23 08:46> 10/21/23 <Jameson Willoughby MD - Last Filed: 10/21/23 10:36> Progress Note: A&P Assessment and plan (1) Acute emphysematous cholecystitis: Status: Acute <Reva Lua PA-C - Last Filed: 10/21/23 08:46> Assessment and Plan: looks well good pain control MACIEL drain - w/ some bilious output likely from cystic duct GI consult - ERCP keep drain in place seen and examined independently <Jameson Willoughby MD - Last Filed: 10/21/23 10:36> Assessment and Plan: POD #1 s/p lap attempted converted to open cholecystectomy. Partial cholecystectomy performed with ?open remnant. Doing well post op but has bile from drain, ~200cc drainage overnight. VSS. Abd exam with appropriate post op tenderness, dressing intact. LFTs ok. Will consult GI for ?ERCP with stent. Obtain HIDA. <MICHELLE Scales Last Filed: 10/21/23 08:46> Time Spent With Patient Time: Total time managing care of this patient today ____ minutes. <MCIHELLE Scales Last Filed: 10/21/23 08:46> Quality Stroke Does the patient have a stroke diagnosis?: No <Reva Lua PA-C - Last Filed: 10/21/23 08:46> VTE Prior VTE?: No <Reva Lua PA-C - Last Filed: 10/21/23 08:46> VTE Risk Level:: Surgical - moderate <Reva Lua PA-C - Last Filed: 10/21/23 08:46> VTE Device Contraindication: N/A - Device Ordered <Reva Lua PA-C - Last Filed: 10/21/23 08:46> VTE Drug Contraindication: Treatment Not Indicated <Reva Lua PA-C - Last Filed: 10/21/23 08:46>
--- NOTE | 2023-10-21 11:06 | MHC.CM.PN ---
IMM 10/21/23 DELIVERED TO BEDSIDE, CM MET W/PT WHO WAS ADMITTED W/LAP CHOLEY THAT CONVERTED TO OPEN CHOLEY, ANTIC PT WILL NEED VNA SERVICES, PT HAS NO PREFERENCE AND AGREEABLE TO REF TO [facility] WHO WILL FOLLOW FOR SERVICES. PT REPORTS HER B.F. AND 33YO DTR, PT REPORTS SHE IS FULLY INDEP W/ALL CARE, DENIES USE OF DME/HOME SERVICES, GOAL FOR DC IS HOME. PT VERIFIES PCP ON FILE IS CORRECT, COVID VACC X6 [phone], PT REPORTS SHE COMPLETED HER HCP/LIVING WILL AT [facility] [employer] [facility] AND HAS COPY AT HOME, COPY HAS BEEN REQUESTED. ANTIC DC HOME TOMORROW W/NEW [facility] AND FAMILY FOR TRANSPORT
[2023-10-21 12:55] LABS: INTERNATIONAL NORM RATIO 1.3 (0.9-1.1); Prothrombin Time 15.2 SEC (11.1-13.3)
--- NOTE | 2023-10-21 14:03 | PHA.MEDREC ---
Pharmacy Consult ? Medication Reconciliation Pharmacy has completed the medication reconciliation. Spoke to patient, she does not take any medication at home except OTC such as vitamin D3 and Women Multivitamin.
--- NOTE | 2023-10-21 14:37 | HO.POSTANES ---
Post Anesthesia Evaluation Post Anesthesia Evaluation Date of Service: 10/21/23 Vital Signs: Vital Signs Temp Pulse Resp BP Pulse Ox O2 Del Method O2 Flow Rate 10/21/23 07:05 97 F 76 16 114/70 95 Room Air 10/21/23 03:10 97.4 F 75 18 112/66 97 Nasal Cannula 2 Anesthesia: General Endotracheal-GETA Mental Status: Awake Pain Control: Satisfactory Nausea/Vomiting: None Hydration: Adequate Anesthesia-Related Issues: No Anes. Related Issues
[2023-10-21 16:00] VITALS: BP 113/69; PULSE 78; RESP 18; TEMP 36.2; O2SAT 94
[2023-10-21] MEDS: 0.9 % Sodium Chloride Flush 3 ML SYRINGE IVFLUSH (16:47)
--- NOTE | 2023-10-21 18:29 | PM.EVENT ---
Event Note Date of Service: 10/21/23 Event Note: GI Consult-Full note dictated Imp: Given the appearance of the HIDA scan and what appears to be primarily a bloody drainage at this time, I don't think she is having a significant postop bile leak and does not have any signs of biliary obstruction.She appears quite well at the present time. The tiny bit of isotope uptake in the drain at the very end of the HIDA scan probably represents some isotope in her bloody drainage as opposed to representing bile in the drain. Rec: Continue to monitor the drainage for any change that might be indicating an active bile leak. F/U labs in the AM including a PT/INR after a dose of oral Vit K tonight. Advance diet and continue antibiotics as per surgical service. If the drainage remains nonbilious and the LFT's remain stable I would recommend holding off on an ERCP given the already excellent drainage of the bile duct as seen on the HIDA scan. However, if anything changes with signs of a bile leak or biliary obstruction please advise us and we will proceed with an ERCP. D/W patient in detail and she is comfortable with that plan. D/W Dr. Willoughby. Thanks Time Spent With Patient Time: Total time managing care of this patient today ____ minutes.
[2023-10-21 19:26] VITALS: BP 106/65; PULSE 79; RESP 20; TEMP 36.6; O2SAT 95
[2023-10-21] MEDS: Phytonadione (Vit K1) Oral 10 MG/ML AMPUL PO (19:57)
[2023-10-21] MEDS: Melatonin 3 MG TABLET 6 MG PO (22:50)
--- NOTE | 2023-10-22 03:40 | CONS_ITS ---
DATE OF SERVICE: 10/21/2023 REASON FOR CONSULTATION: Possible bile leak postoperatively after open cholecystectomy. HISTORY OF PRESENT ILLNESS: This has been obtained from the patient, the medical record, and the surgical staff. Patient is a 73-year-old female who was in her usual state of good health up until about a day or 2 before admission when she developed the onset of right-sided abdominal pain. Prior to that she had been feeling very well without any particular GI complaints in general. Due to worsening of her pain she came to the ER and was found to have gallstones and emphysematous cholecystitis. She was taken to the OR and initially underwent an attempted laparoscopic cholecystectomy, but this had to be converted to an open procedure due to the significant intraabdominal findings of inflammation. From what I understand the gallbladder was so inflamed and adherent to surrounding tissue, only a partial cholecystectomy could be performed. She had placement of a drain as well.. The apparent initial drainage into the drain appeared bilious, but over the course of today has turned primarily bloody. Initial concerns included that of a bile leak postoperatively given the severity of the cholecystitis and the need to perform only a partial cholecystectomy. At the present time she reports she actually feels quite well and is hungry. She denies any significant abdominal pain. According to the patient and the nursing staff, her drain has been primarily bloody in appearance and has not appeared to be bilious in color. The patient describes that prior to the onset of abdominal pain, she was not having any particular GI symptoms. She has always enjoyed a good appetite without any chronic heartburn or dysphagia. Her bowel movements have been regular and without any signs of bleeding. PRESENT MEDICATIONS: Include acetaminophen p.r.n., Colace, morphine p.r.n., Zofran p.r.n., oxycodone p.r.n., IV pantoprazole and IV Zosyn. PAST MEDICAL HISTORY: She is quite healthy. Denies any particular problems such as diabetes, heart disease, stroke, nor lung disease. 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 SOCIAL HISTORY: She is a , but presently reports that she has a significant other. She does not smoke nor use any significant amounts of alcohol. FAMILY HISTORY: Noncontributory. REVIEW OF SYSTEMS: CONSTITUTIONAL: Up until becoming ill the past day or 2, she had been feeling very well with good energy and good appetite. SKIN: No rash. No pruritus. CARDIAC: No chest pain. PULMONARY: No cough or hemoptysis. GI: As above. URINARY: No dysuria. No hematuria. NEUROLOGIC: No headache or seizures. PHYSICAL EXAMINATION: GENERAL: The patient is a pleasant, alert, comfortable-appearing female, in no distress. SKIN: Warm and dry. Anicteric sclerae. NECK: Supple. CHEST: Clear. CARDIAC: Normal S1, S2. ABDOMEN: Soft. Normal bowel sounds. Nontender. Surgical drain has a bloody maroon liquid. LABORATORY DATA: I did review her HIDA scan and the HIDA scan report. Both of these indicate excellent drainage of isotope into the GI tract. The only time the surgical drain is noted is at the very end of the HIDA scan, which is well over 3 hours after the initial injection of isotope. The drainage in the drain lights up only minimally at the very end of the HIDA scan. There is certainly no evidence of biliary obstruction given the prompt emptying of isotope into the GI tract and continuing to do so throughout the study. White blood cell count 10.4, hemoglobin 10.8, platelets 210,000. PT was 18.5 with INR of 1.5 yesterday and today is 15.2 with INR of 1.3. Her LFTs were normal yesterday and remained normal today except for AST of 39. Lipase was 13. IMPRESSION: Given the patient's clinical history, I do not think she is having a significant bile leak at the present time. Given the drain contents, this appears to be a bloody drainage in relation to her surgery and does not appear to be primarily a bile leak type of drainage. Given the appearance of the HIDA scan, she already has excellent drainage of isotope and bile into the GI tract. 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 At this point, I do not think an ERCP is required given that my index of suspicion for a bile leak is quite low. I would continue to monitor the drainage for any change that might be indicating an active bile leak. I would follow up laboratories in the morning including a PT/INR after dose of oral vitamin K. Diet and antibiotics will be managed by the Surgical Service. If the drainage remains nonbilious and the LFTs remain stable, I would then recommend holding off on an ERCP given the already excellent drainage of the bile duct as seen on the HIDA scan. However, if anything changes with signs of a bile leak in the drain or biliary obstruction, please advise me and we could then proceed with an ERCP on that basis. This has all been discussed in detail with the patient and she is comfortable with the plan. MD JAN Palacios/HIEU / [phone] MTDD
[2023-10-22 04:00] VITALS: BP 125/72; PULSE 65; RESP 16; TEMP 36; O2SAT 95
[2023-10-22] MEDS: Pantoprazole Sodium 40 MG/10 ML VIAL IVPUSH (05:26)
[2023-10-22] MEDS: Acetaminophen 1,000 MG/100 ML PIGGYBACK 400 MG IV ×4 (05:30→22:52)
[2023-10-22] MEDS: Piperacillin Sodium/Tazobactam 3.375 GM in 0.9 % Sodium Chloride 50 ML IV ×4 (06:13→23:14)
[2023-10-22 06:43] LABS: MANUAL DIFF FLAG NO
[2023-10-22 06:55] LABS: Basophils Percent Auto 0.2 % (0-2); Eosinophils Percent Auto 0.1 % (0-4); Hematocrit 29.2 % (37.0-47.0); Hemoglobin 9.5 g/dl (12.0-16.0); INTERNATIONAL NORM RATIO 1.1 (0.9-1.1); Imm Gran Abs Auto 0.07 X10*3/uL (0.00-0.03); Imm Gran Pct Auto 0.6 % (0.0-0.4); Lymphocytes Absolute Auto 1.4 X10*3/uL (1.2-4.9); Lymphocytes Percent Auto 13.1 % (20-40); Mean Corpuscular HGB Conc 32.5 g/dl (31.0-35.0); Mean Corpuscular Volume 95.4 fL (80.0-98.0); Mean Platelet Volume 9.3 fL (9.4-12.3); Monocytes Absolute Auto 0.8 X10*3/uL (0.1-1.2); Monocytes Percent Auto 7.5 % (2-11); Neutrophils Absolute Auto 8.7 x10*3/uL (2.0-8.3); Neutrophils Percent Auto 78.5 % (45-73); Platelet Count 343 X10*3/uL (160-400); Prothrombin Time 13.4 SEC (11.1-13.3); Red Blood Count 3.06 X10*6/uL (4.20-5.50)
[2023-10-22 07:08] LABS: Alanine Aminotransferase 19 U/L (0-31); Albumin Level 2.7 g/dL (3.5-5.0); Alkaline Phosphatase 52 U/L (39-117); Aspartate Amino Transferase 14 U/L (5-31); Bilirubin Direct 0.2 mg/dL (0.0-0.5); Bilirubin Total 0.3 mg/dL (0.0-1.0); Total Protein 5.8 g/dL (6.5-8.0)
[2023-10-22 07:32] VITALS: BP 115/66; PULSE 65; RESP 18; TEMP 36; O2SAT 94
--- NOTE | 2023-10-22 07:44 | P.PNGS_ITS ---
Subjective Subjective Date of Service: 10/22/23 <Reva Lua PA-C - Last Filed: 10/22/23 07:48> 10/22/23 <Jameson Willoughby MD - Last Filed: 10/22/23 09:08> Interval history: Feels well this morning, tolerating solid diet without nausea or vomiting. OOB and ambulating. <Reva Lua PA-C - Last Filed: 10/22/23 07:48> Physical Exam 2 Vital Signs: Vital Signs: Last Vital Signs Temp 96.8 F 10/22/23 07:32 Pulse 65 10/22/23 07:32 Resp 18 10/22/23 07:32 BP 115/66 10/22/23 07:32 Pulse Ox 94 10/22/23 07:32 O2 Del Method Room Air 10/22/23 07:32 O2 Flow Rate 2 10/21/23 03:10 BMI result Body Mass Index 30.0 <Reva Lua PA-C - Last Filed: 10/22/23 07:48> Const: General: comfortable, no acute distress and alert <Reva Lua PA-C - Last Filed: 10/22/23 07:48> Resp: Effort & Inspection: normal respiratory effort <MICHELLE Scales Last Filed: 10/22/23 07:48> GI: Other: Christopher more serous this morning <Reva Lua PA-C - Last Filed: 10/22/23 07:48> Inspection: Yes incision (dressing intact) <Reva Lua PA-C - Last Filed: 10/22/23 07:48> Palpation (GI): Soft to palpation, Tenderness to palpation present (GI) (mild incisional) and no guarding <Reva Lua PA-C - Last Filed: 10/22/23 07:48> Skin: General skin exam: no rashes or lesions noted and no jaundice < Reva Lua PA-C - Last Filed: 10/22/23 07:48> Objective Data Active Medications Docusate Sodium (Docusate Sodium 100 Mg Capsule) 100 mg PO BID MELANIA Last Admin: 10/21/23 19:57 Dose: 100 mg Documented By: JOCY Sodium Chloride (Ns) 1,000 mls @ 100 mls/hr IVCONT .Q10H COUNTS INCLUDE 234 BEDS AT THE [facility] Last Admin: 10/22/23 06:41 Dose: Not Given Documented By: JOCY Non-Admin Reason: IV Running Piperacillin Sod/Tazobactam (Sod 3.375 gm/ Sodium Chloride) 50 mls @ 100 mls/hr IV Q6H COUNTS INCLUDE 234 BEDS AT THE [facility] Last Infusion: 10/22/23 06:43 Dose: Infused Documented By: JOCY Acetaminophen (Ofirmev) 1,000 mg in 100 mls @ 400 mls/hr IV Q6H COUNTS INCLUDE 234 BEDS AT THE [facility] Last Infusion: 10/22/23 05:54 Dose: Infused Documented By: JOCY Melatonin (Melatonin 3 Mg Tablet) 6 mg PO BEDTIME PRN PRN Reason: Insomnia Last Admin: 10/21/23 22:50 Dose: 6 mg Documented By: JOCY Morphine Sulfate (Morphine Sulfate 4 Mg/Ml Cartridge) 4 mg IVPUSH Q3H PRN; Protocol PRN Reason: Pain, Severe (Pain Scale 7-10) Last Admin: 10/21/23 00:46 Dose: 4 mg Documented By: JOHN Ondansetron HCl (Ondansetron Hcl 4 Mg/2 Ml Vial) 4 mg IVPUSH Q8H PRN PRN Reason: Nausea and Vomiting Oxycodone HCl (Oxycodone Hcl Immed Release 5 Mg Tablet) 10 mg PO Q4H PRN PRN Reason: Pain, Severe (Pain Scale 7-10) Pantoprazole Sodium (Pantoprazole Sodium 40 Mg/10 Ml Vial) 40 mg IVPUSH DAILY@0630 COUNTS INCLUDE 234 BEDS AT THE [facility] Last Admin: 10/22/23 05:26 Dose: 40 mg Documented By: JOCY Sodium Chloride (0.9 % Sodium Chloride Flush 3 Ml Syringe) 3 ml IVFLUSH QSHIFT COUNTS INCLUDE 234 BEDS AT THE [facility] Last Admin: 10/22/23 07:01 Dose: Not Given Documented By: BULMARO Non-Admin Reason: IV Running <Reva Lua PA-C - Last Filed: 10/22/23 07:48> Labs CBC & Chem 7: 10/22/23 06:00 10/21/23 05:06 <Reva Lua PA-C - Last Filed: 10/22/23 07:48> Labs: Laboratory Results - last 24 hr 10/21/23 10/22/23 12:25 06:00 MCV 95.4 MCH 31.0 MCHC 32.5 RDW 14.0 Plt Count 343 MPV 9.3 L Immature Gran % (Auto) 0.6 H Neut % (Auto) 78.5 H Lymph % (Auto) 13.1 L [place] % (Auto) 7.5 Eos % (Auto) 0.1 Baso % (Auto) 0.2 Lymph # (Auto) 1.4 [place] # (Auto) 0.8 Eos # (Auto) 0.0 Baso # (Auto) 0.0 Abs Immat Gran (auto) 0.07 H Absolute Neuts (auto) 8.7 H Absolute Nucleated RBC 0.000 Nucleated RBC % (auto) 0.0 PT 15.2 H 13.4 H INR 1.3 H 1.1 Total Bilirubin 0.3 Direct Bilirubin 0.2 AST 14 ALT 19 Alkaline Phosphatase 52 Total Protein 5.8 L Albumin 2.7 L <Reva Lua PA-C - Last Filed: 10/22/23 07:48> Microbiology Microbiology Results: Microbiology 10/20/23 17:44 Urine Culture - Preliminary Urine clean catch - Urine her top Gram negative maykel 10/20/23 21:18 Gram Stain - Final Bile <Reva Lua PA-C - Last Filed: 10/22/23 07:48> Procedures Date of Service Date of Service: 10/22/23 <Reva Lua PA-C - Last Filed: 10/22/23 07:48> 10/22/23 <Jameson Willoughby MD - Last Filed: 10/22/23 09:08> Progress Note: A&P Assessment and plan (1) Acute emphysematous cholecystitis: Status: Acute <Reva Lua PA-C - Last Filed: 10/22/23 07:48> Assessment and Plan: Feels well today Denies significant pain Tolerating diet CHRISTOPHER drain output much less, does not appear bilious Evaluated by GI - ERCP not planned as output seems to be wheezing and does not appear to be bilious anymore Possible home tomorrow Seen and examined independently <Jameson Willoughby MD - Last Filed: 10/22/23 09:08> Assessment and Plan: POD #2 s/p lap attempted converted to open cholecystectomy. Partial cholecystectomy performed with ?open remnant. HIDA yesterday showed no leak and normal biliary drainage into CBD. Drain output has significantly decreased and more serous this morning. She is doing well post op and tolerating diet with good pain control. Likely home tomorrow possible with drain depending on output. <Reva Lua PA-C - Last Filed: 10/22/23 07:48> Time Spent With Patient Time: Total time managing care of this patient today ____ minutes. <Reva Lua PA-C - Last Filed: 10/22/23 07:48> Quality Stroke Does the patient have a stroke diagnosis?: No <Reva Lua PA-C - Last Filed: 10/22/23 07:48> VTE Prior VTE?: No <Reva Lua PA-C - Last Filed: 10/22/23 07:48> VTE Risk Level:: Surgical - moderate <MICHELLE Scales Last Filed: 10/22/23 07:48> VTE Device Contraindication: N/A - Device Ordered <Reva Lua PA-C - Last Filed: 10/22/23 07:48> VTE Drug Contraindication: Treatment Not Indicated <Reva Lua PA-C - Last Filed: 10/22/23 07:48>
[2023-10-22] MEDS: Docusate Sodium 100 MG CAPSULE PO ×2 (08:42→20:37)
[2023-10-22] MEDS: 0.9 % Sodium Chloride 1,000 ML 100 ML IVCONT ×2 (08:44→21:57)
[2023-10-22 15:11] VITALS: BP 133/78; PULSE 78; RESP 18; TEMP 36.8; O2SAT 96
[2023-10-22 19:35] VITALS: BP 134/81; PULSE 71; RESP 16; TEMP 36.8; O2SAT 96
--- NOTE | 2023-10-22 22:49 | W.PM.OPN ---
Operative Note Operative Note Date of Service: 10/20/23 Narrative: Preop diagnosis--acute cholecystitis Postop diagnosis--acute emphysematous cholecystitis Procedure down was laparoscopic converted to open fenestrated cholecystectom -Surgeon- Arsh [place] Assistant surgeon-- Case Anesthesia--PIETRO History--the patient is a 73-year-old female who came in with a 48 hour history of abdominal pain in the right upper quadrant some nausea the vomiting elevated white counts of 14 and right upper quadrant ultrasound showing thickened inflamed gallbladder with some calcifications and air consistent with emphysematous gallbladder. Her LFTs were normal. Her common bile duct was normal. Stones were noted in her gallbladder. Decision was made to undergo laparoscopic cholecystectomy Findings--acutely inflamed gallbladder mass with colon and omentum densely adherent to wet. Procedure--patient was brought to the operative room and under anesthesia guidance intubated. Before we started the operation her abdomen was palpated and a mass was noted in the right upper quadrant where her gallbladder was located. This was an indication that it would be a very inflamed difficult operation. She had compression stockings placed from before induction and received antibiotics perioperatively. An infraumbilical incision was created after numbing the area with lidocaine and dissection was carried down through the anterior abdominal wall fascia which was grasped with Anjelica and transected. 0 Vicryl pursestring suture placed and Dorita trocar introduced. Introducing the camera I was noted that there was a lot of omentum and fatty tissue stuck to the edge of the liver. Another 5 mm port was placed in the epigastric area under direct visualization using local. A retractor was placed through here and in trying to manipulate the fat tissue where the gallbladder should the thin the felt rigid mass and the tissue did not move very easily. At this point anticipating the difficulty of the laparoscopic approach and not being able to find a good plane it was decided to converted open procedure. Preoperative consent was had for this. Right upper quadrant subcostal incision was created with the scalpel and cautery and taken down into the peritoneal cavity. This was created right over the large lump. In entering the Book[place]ter was placed and we tried to retract the transverse colon but this area looked stuck to the edge of the liver. Working from a known and unknown area both medially and laterally we took down the transverse colon from the edge of the liver still there was a only a small segment of the colon stuck to the edge. Coming from inferiorly and behind to try to isolate and identify the gallbladder with finger dissection we got into some necrotic tissue which led to a cavity which was the gallbladder lumen. A large stone was palpated here. Still the anterior aspect the colon and fat and mesentery were stuck such that the true gallbladder tissue was identifiable. Some omental tissue had been resected in the process of doing this and passed off. At this point I asked for Dr. Willoughby to come in to assist and he kindly was able to do the help with the rest of the operation. The 2 of us were then able to dissect anteriorly and come into the gallbladder and we were able to get into the cavity and removed the 2 large gallstones. At this point it was decided that the tissue was so very inflamed medially and posteriorly and we can get a good look at what was the anterior wall. We were able to mobilize the transverse colon completely from this mass and the colon itself looked good. It was decided to do a partial cholecystectomy by removing the anterior wall and as much of the posterior as we could appreciate. In doing this we removed some more sludge and some smaller stone material from the cavity that this left a raw area and we can see at 1 point a space where there was some oozing bile which was probably where the cystic duct attached. The tissue was all very calcified and firm so it was not easy to establish good anatomy it was also very friable night and think it stitch with hold well if we were trying to isolate the cystic duct. It was decided to leave a drain in place and a 10 MACIEL drain was placed through the right upper quadrant area and put into the gallbladder that. The posterior wall was cauterized so little bit and the area irrigated. On completion the colon was once again examined and was fine the stomach was fine and the small bowel was fine. All the gallbladder tissue was sent off for pathology. Now the anterior wall was closed with Vicryl suture closing the posterior peritoneum and then 0 PDS closing the fascial tissue several interrupted sub cutaneous sutures were used cell why the soft tissue and then akosua were used to close the skin edge. The MACIEL drain was secured with a stitch as well. At the end of the case all sponge instrument and needle counts were correct estimated blood loss was about 25 cc specimen sent was the gallbladder. Patient was extubated and returned stable to recovery room
[2023-10-22] MEDS: Melatonin 3 MG TABLET 6 MG PO (22:51)
[2023-10-23 03:50] VITALS: BP 138/72; PULSE 71; RESP 16; TEMP 36.2; O2SAT 95
[2023-10-23] MEDS: Pantoprazole Sodium 40 MG/10 ML VIAL IVPUSH (05:42)
[2023-10-23] MEDS: Piperacillin Sodium/Tazobactam 3.375 GM in 0.9 % Sodium Chloride 50 ML IV (05:53)
[2023-10-23] MEDS: Acetaminophen 1,000 MG/100 ML PIGGYBACK 400 MG IV (06:24)
[2023-10-23 06:58] VITALS: BP 131/71; PULSE 67; RESP 16; TEMP 36.7; O2SAT 94
--- NOTE | 2023-10-23 09:00 | P.PNGS_ITS ---
Subjective Subjective Date of Service: 10/23/23 Interval history: Continues to feel well with only mild abdominal pain when moving. OOB and ambulating without difficulty. Tolerating solid diet. Feels ready for discharge. Physical Exam 2 Vital Signs: Vital Signs: Last Vital Signs Temp 98.1 F 10/23/23 06:58 Pulse 67 10/23/23 06:58 Resp 16 10/23/23 06:58 BP 131/71 10/23/23 06:58 Pulse Ox 94 10/23/23 06:58 O2 Del Method Room Air 10/23/23 06:58 O2 Flow Rate 2 10/21/23 03:10 BMI result Body Mass Index 30.0 Const: General: comfortable, no acute distress and alert O rientation/consciousness: patient oriented x3 Resp: Effort & Inspection: normal respiratory effort GI: Other: MACIEL wtih scant serous drainage Inspection: No distended and Yes incision (clean) Palpation (GI): Soft to palpation, Tenderness to palpation present (GI) (very mild incisional), no guarding and not rigid Skin: General skin exam: no rashes or lesions noted and no jaundice Neuro: General: patient oriented x3 and moves all extremities Objective Data Active Medications Docusate Sodium (Docusate Sodium 100 Mg Capsule) 100 mg PO BID [facility] Last Admin: 10/22/23 20:37 Dose: 100 mg Documented By: JOCY Piperacillin Sod/Tazobactam (Sod 3.375 gm/ Sodium Chloride) 50 mls @ 100 mls/hr IV Q6H [facility] Last Infusion: 10/23/23 06:23 Dose: Infused Documented By: JOCY Acetaminophen (Ofirmev) 1,000 mg in 100 mls @ 400 mls/hr IV Q6H [facility] Last Infusion: 10/23/23 06:40 Dose: Infused Documented By: JOCY Melatonin (Melatonin 3 Mg Tablet) 6 mg PO BEDTIME PRN PRN Reason: Insomnia Last Admin: 10/22/23 22:51 Dose: 6 mg Documented By: JOCY Morphine Sulfate (Morphine Sulfate 4 Mg/Ml Cartridge) 4 mg IVPUSH Q3H PRN; Protocol PRN Reason: Pain, Severe (Pain Scale 7-10) Last Admin: 10/21/23 00:46 Dose: 4 mg Documented By: JOHN Ondansetron HCl (Ondansetron Hcl 4 Mg/2 Ml Vial) 4 mg IVPUSH Q8H PRN PRN Reason: Nausea and Vomiting Oxycodone HCl (Oxycodone Hcl Immed Release 5 Mg Tablet) 10 mg PO Q4H PRN PRN Reason: Pain, Severe (Pain Scale 7-10) Pantoprazole Sodium (Pantoprazole Sodium 40 Mg/10 Ml Vial) 40 mg IVPUSH DAILY@0630 [facility] Last Admin: 10/23/23 05:42 Dose: 40 mg Documented By: JOCY Sodium Chloride (0.9 % Sodium Chloride Flush 3 Ml Syringe) 3 ml IVFLUSH QSHIFT [facility] Last Admin: 10/23/23 00:04 Dose: Not Given Documented By: JOCY Non-Admin Reason: IV Running Labs 10/22/23 06:00 10/21/23 05:06 Microbiology Microbiology Results: Microbiology 10/20/23 21:18 Gram Stain - Final Bile Routine Culture - Final 10/20/23 17:44 Urine Culture - Final Urine clean catch - Urine her top Escherichia coli Procedures Date of Service Date of Service: 10/23/23 Progress Note: A&P Assessment and plan (1) Acute emphysematous cholecystitis: Status: Acute Plan POD #3 s/p lap attempted converted to open cholecystectomy. Partial cholecystectomy performed with ?open remnant. Continues to do well post op- pain well controlled and tolerating solid diet. Drain output has remains low and serous in nature. Abd benign with clean incision. Stable for dc to home today with MACIEL drain in place with [facility]. F/u in office in [address] Willoughby. Patient comfortable with plan. Time Spent With Patient Time: Total time managing care of this patient today ____ minutes. Quality Stroke Does the patient have a stroke diagnosis?: No VTE Prior VTE?: No VTE Risk Level:: Surgical - moderate VTE Device Contraindication: N/A - Device Ordered VTE Drug Contraindication: Treatment Not Indicated
--- NOTE | 2023-10-23 09:25 | MHC.CM.PN ---
EMR REVIEWED. PATIENT IS MEDICALLY CLEARED FOR DC HOME W/ NEW [facility] FOR SN. PATIENT'S FRIEND WILL PROVIDE TRANSPORTATION HOME AT 11AM. RN AWARE.
[2023-10-23] MEDS: Docusate Sodium 100 MG CAPSULE PO (09:33)
--- NOTE | 2023-10-23 10:53 | PM.DS ---
DS: Providers Provider Date of Service: 10/23/23 Date of admission: 10/20/23 17:56 Date of discharge: 10/23/23 Primary care physician: Trinity Banuelos MD Attending physician on admission: Erika Caban Consults: 10/21/23 08:37 Consult to Gastroenterology Routine Consulting Provider: Vlad Grover Reason for consultation: s/p cholecystectomy, bile leak Attending physician on discharge: Jameson Willoughby DS: Diagnosis Discharge Diagnosis (1) Acute emphysematous cholecystitis: Status: Acute DS: Summary Hospital Course Hospital Course: HPI AT ADMISSION: Nuvia Smith is a 73 year old female who presents to the emergency room with 48 hour history of abdominal pain some nausea and vomiting no fever no chills. She has never had pain like this before. In the emergency room her white count is elevated at 14 her LFTs were normal but tender in the right upper quadrant. Of ultrasound shows changes consistent with emphysematous cholecystitis and gallstones. Common bile duct is around 0.7 which is normal for her age. HOSPITAL COURSE: She was admitted to the surgical service for further treatment of the acute cholecystitis. It was recommended to proceed with laparoscopic cholecystectomy, possible open and she agreed. She was added onto the OR schedule for that day. On 10/20/23, a laparoscopic attempted converted to open cholecystectomy was performed by Dr. Caban. The patient tolerated this well. A MACIEL drain was placed intraoperatively. She did have some bilious drainage from the MACIEL initially. Her bilirubin was normal. GI consult was obtained who recommended HIDA scan. This showed no leak and normal biliary drainage into CBD. Her drain output significantly decreased and became more serous appearing. Her diet was advanced to solids. Her activity was increased. Her pain control remained good on oral analgesics. On POD #3, she was tolerating a solid diet without nausea or vomiting. Her incisional pain was well controlled. She was ambulating without difficulty. Her MACIEL output had scant serous output but was kept in place. Her abdomen was benign with clean incision and mild tenderness. She felt ready for discharge to home. She was discharged to home with VNA services for MACIEL drain care on 10/23/23 in stable condition. She is to follow up in the office in [address] Willoughby. Status at Discharge Functional status at discharge: independent ambulation Overall status at discharge: patient is progressing back to baseline Time Attestation Discharge Coordination Time (in mins): 35 Quality: Safe Use of Opioids Does Pt have an Active Cancer Diagnosis on the Problem List?: No Quality: Stroke Does the patient have a stroke diagnosis?: No Physical Exam Vital Signs: Vital Signs: Last Vital Signs Temp 98.1 F 10/23/23 06:58 Pulse 67 10/23/23 06:58 Resp 16 10/23/23 06:58 BP 131/71 10/23/23 06:58 Pulse Ox 94 10/23/23 06:58 O2 Del Method Room Air 10/23/23 06:58 O2 Flow Rate 2 10/21/23 03:10 BMI result Body Mass Index 30.0 Const: General: comfortable, no acute distress and alert Orientation/consciousness: patient oriented x3 Resp: Effort & Inspection: normal respiratory effort GI: Other: MACIEL drain serous output Inspection: No distended and Yes incision (clean) Palpation (GI): Soft to palpation and no guarding Skin: General skin exam: no rashes or lesions noted and no jaundice Neuro: General: patient oriented x3 DS: Data Data Completed and Pending Pending studies at discharge: Pending at discharge 10/20/23 22:22 Surgical [PTH] Routine Discharge Plan Discharge Anticipated Discharge Date/Time: 10/23/23 14:28 Patient Disposition: Home Health Service Discharge Diagnosis: acute cholecystitis, s/p open cholecystectomy Referrals: [facility] [Outside] - 3-5 Days ([facility] GARCIA will call you to schedule a visit within 48 hours) Trinity Banuelos MD [Primary Care Provider] - 1 Week Jameson Willoughby MD [Physician] - 1 Week Discharge Medications: New docusate sodium [Colace] 100 mg capsule 100 mg PO BID PRN (Reason: constipation) Qty: 30 0RF oxycodone 5 mg tablet 5 mg PO Q4H PRN (Reason: pain (scale score 7-10)) Qty: 24 0RF Rx Instructions: Partial Fill upon patient request. Continued cholecalciferol (vitamin D3) [Vitamin D3] 25 mcg (1,000 unit) Tablet 25 mcg PO DAILY Multivitamin Women 50 Plus 8 mg iron-400 mcg-50 mcg Tablet 1 tab PO DAILY Discharge Orders: Discharge Order (Routine); Ordered 10/23/23 Ordered By: Reva Chanell Diet: Low fat, low cholesterol Activity on Discharge: No heavy lifting Stand Alone Forms: Patient Portal Discharge page Activity Restrictions/Additional Instructions: If the incision area is tender, you may apply an ice pack for short intervals (No more than 20 minutes on, followed by at least 20 minutes off). Do not apply heat. Do not use creams, lotions, or topical antibiotics. These can cause infection or allergic reaction. Ok to shower. You have akosua closing your incision and these will be removed approximately 10-14 days after surgery. MACIEL drain care- empty BID and as needed. Record amount of output and color. Change dressing every other day. NO HEAVY LIFTING (>10lbs) or strenuous activity. Follow up in office. ([phone]) Call Your Doctor If: -Your temperature exceeds 101.5? F -You experience excessive pain or swelling -You have an unexpected reaction to medication -You have excessive bleeding -You experience continued vomiting/nausea -Your incision begins to separate -Your incision shows signs of infection such as increased redness, swelling, excessive pain, drainage (light blood or clear fluid is normal) or heat Care Plan Goals: Return to baseline health and resume normal activities following recovery period. Health Concerns: acute cholecystitis Plan of Treatment: s/p open cholecystectomy MACIEL drain in place f/u in office in 1 week home with VNA services Assessment: Doing well post op. Discharge Date/Time: 10/23/23 10:39
--- NOTE | 2023-10-24 08:53 | W.MHC.F2F ---
Service Date Service Date: 10/23/23 Encounter Date of encounter: 10/23/23 Reasons for Services Signs and symptoms assessed: abdominal pain, PO intake, drain output Reason for residential: wound care and postoperative assessment and/or care Homebound: Leaving the home is medically contraindicated at this time without the asist of a device and/or another person due th the listed conditions above and below. Reason homebound: weakness related to hospital stay and unable to drive Homebound supporting statement: Ms. Smith is s/p open cholecystectomy. She has a MACIEL drain in place and will require VNA for drain care and management. Certification: Based on the above findings, I certify that this patient is confined to the home and needs intermittent residential care, physical therapy and/or speech therapy, or continues to need occupational therapy. The patient is under my care, and I have initiated the establishment of the plan of care. The patient will be followed by a physician who will periodically review the plan of care. Time Spent With Patient Time: Total time managing care of this patient today ____ minutes.
== END 2023-10-23 10:39 | disposition home health service (06) | DRG 416 ==
LOC: HO.ED 17:35 → HO.EDOVER 19:04 → HO.S3 19:18
PROVIDERS: Internal Medicine; Physician Assistant; Physician Assistant Medical; Admitting Provider Surgery; Emergency Provider Emergency Medicine; PCP Internal Medicine; Visit Provider Surgery
PROC: 0FT44ZZ Resection of Gallbladder, Percutaneous Endoscopic Approach (ICD-10-PCS; CPT 47562; principal; 2023-10-20 20:00)
DX: K81.0 Acute cholecystitis (principal); Z87.891 Personal history of nicotine dependence; Z79.899 Other long term (current) drug therapy
CPT/HCPCS: 36415; 76705; 78226; 80053; 80076; 81001; 83690; 83735; 85025; 85610; 86850; 86900; 86901; 87070; 87086; 87088; 87186; 87205; 88304; 93005; 99285; A9537; C9113; J0131; J0665; J1100; J1596; J2250; J2270; J2371; J2405; J2543; J3010

== ENCOUNTER → 2023-10-20 14:28 | Outpatient (BNV) | payer MEDICARE, SELFPAY | PROVIDERS: Emergency Provider Emergency Medicine; PCP Internal Medicine; Visit Provider Surgery | DX: K81.0 Acute cholecystitis (principal) | CPT/HCPCS: 47600; 99024; 99223; 99499; G0180 ==

== ENCOUNTER → 2023-10-20 17:22 | Outpatient (BNV) | payer MEDICARE, SELFPAY | PROVIDERS: Admitting Provider Surgery; Emergency Provider Emergency Medicine; PCP Internal Medicine; Visit Provider Internal Medicine Cardiovascular Disease | DX: R10.9 Unspecified abdominal pain (principal) | CPT/HCPCS: 93010 ==

== ENCOUNTER 2023-10-30 09:46 | Outpatient (AMB) | payer MEDICARE, SELFPAY ==
--- NOTE | 2023-10-30 09:47 | A.OFFVIS_ITS ---
Intake Vital Signs 10/30/23 09:53 Weight 172 lb BP 129/62 Blood Pressure Location Rt brachial Position Sitting Pulse 101 H Intake Visit Reasons: post lap vickie 10/20/23 Intake Note: This patient presents for a post-op assessment status post laparoscopic cholecystectomy. Pt c/o; reports no complaints. 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 She underwent attempted laparoscopic cholecystectomy converted to open subtotal cholecystectomy with Dr. Caban last October 20, 2023. Her gallbladder was markedly adherent to the liver bed at that time as well as with the colon. She was discharged on postop day 5. She says doing very well. She has a MACIEL drain in place. The output is clear Unfortunately, her path report shows a gallbladder adenocarcinoma. [facility] Medical History (Updated 10/30/23 @ 10:12 by Jameson Willoughby MD) Adenocarcinoma of gallbladder Surgical History (Updated 10/30/23 @ 10:12 by Jameson Willoughby MD) Status post cholecystectomy History of laparoscopic cholecystectomy (~10/20/23) Family History Daughter Mental health disorder Social History Household Members: Family Household Members Other:: , 3 children, lives with daughter, Housing: Condominium Do you presently have visiting nurse or other home services: No Alcohol intake: current Alcohol intake frequency: 0-2 drinks per day Alcohol type: wine Patient Tobacco Use Status: Former Tobacco user e-Cigarette/Vaping Use: Never Used service: No Current occupational status: retired Cognitive needs: No Hearing needs: No Vision needs: Yes Review of Systems Const Denies chills and Denies fever(s) Card Denies chest pain, Denies dyspnea and Denies dyspnea on exertion Resp Denies cough, Denies dyspnea and Denies dyspnea on exertion GI Denies hematochezia and Denies change in bowel habits Denies hematuria Musc Denies back pain and Denies limited range of motion Neuro Denies focal weakness and Denies convulsions Psych Denies depression and Denies mood swings Physical Exam Vital Signs: Last Vital Signs Pulse 101 H 10/30/23 09:53 BP 129/62 10/30/23 09:53 Const General: comfortable and no acute distress Orientation/consciousness: patient oriented x3 Eyes Other: Anicteric sclerae Neck Neck: Yes no lymphadenopathy Resp Auscultation: clear to auscultation bilaterally Cardio Rhythm: regular rhythm GI Other: MACIEL drain in place, output clear, serosanguineous, incision clean and well healed, akosua in place Palpation (GI): Soft to palpation, nontender and no guarding Neuro General: patient oriented x3 Assessment & Plan Assessment & Plan (1) Status post cholecystectomy: Code(s): Z90.49 - Acquired absence of other specified parts of digestive tract Plan: She is doing very well. Her incisions well healed. I removed her skin akosua. I attempted to remove her MACIEL drain but there was significant resistance so I left this in place today. (2) Adenocarcinoma of gallbladder: Code(s): C23 - Malignant neoplasm of gallbladder Plan: Unfortunately, her path report shows a gallbladder adenocarcinoma, moderately differentiated, at least a T2 lesion. I explained this to her. I will refer her to the hepatobiliary service in [facility]. I told her to make sure that she calls the office if she needs guidance with regards to her care in the future. However, we will arrange for her to be seen by [facility]. She understands the plan well. Coding Level of Care Code Est Pt Level 3 (28777) Diagnoses Status post cholecystectomy Z90.49 Adenocarcinoma of gallbladder C23
[2023-10-30 09:53] VITALS: BP 129/62; PULSE 101
== END 2023-10-30 10:12 | disposition home or self-care (01) ==
PROVIDERS: PCP Internal Medicine; Visit Provider Surgery
DX: Z90.49 Acquired absence of other specified parts of digestive tract (principal); C23 Malignant neoplasm of gallbladder
CPT/HCPCS: 99024

== ENCOUNTER → 2023-10-30 09:46 | Outpatient (BNVA) | payer MEDICARE, SELFPAY | PROVIDERS: PCP Internal Medicine; Visit Provider Surgery | DX: C23 Malignant neoplasm of gallbladder (principal); Z90.49 Acquired absence of other specified parts of digestive tract | CPT/HCPCS: 99212 ==

== ENCOUNTER → 2023-10-31 13:43 | Outpatient (BNVA) | payer MEDICARE, SELFPAY | PROVIDERS: PCP Internal Medicine; Visit Provider Surgery | DX: Z48.1 Encounter for planned postprocedural wound closure (principal) | CPT/HCPCS: 99211 ==

== ENCOUNTER 2024-01-03 10:55 | Outpatient (AMB) | payer MEDICARE, SELFPAY ==
--- OUTSIDE RECORDS SUMMARY | 2024-01-03 11:32 | XMS_ITS | Patient Health Record ---
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 Name Role Phone Trinity Banuelos MD Primary Care Provider Unavaila ble Black, Breanna Unavailable [phone] ALLERGIES Allergen (clinical drug ingredient) Drug/Non Drug Allergy documented on EMR Reaction Allergy Type Onset Date Status Substance with sulfonamide structure and antibacterial mechanism of action (substance) Sulfa Antibiotics hives Drug Allergy Active REASON FOR REFERRAL No Information SOCIAL HISTORY Tobacco Use: Social History Observation Description Date Details (start date - stop date) Former Smoker NA - NA Sex Assigned At : Social History Observation Description Sex Assigned At Unknown Tobacco Use/Smoking Question Answer Notes Are you a: former smoker Additional Findings: Tobacco Non-User Ex-cigaret te smoker Alcohol Screen Question Answer Notes Did you have a drink containing alcohol in the p ast year? Yes Points 0 Interpretation Negative Tobacco use other than smoking: Question Answer Notes Are you an other tobacco user? 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
[2024-01-03 11:56] VITALS: BP 130/84; PULSE 94; TEMP 36.9; O2SAT 96; BMI 29.9
--- NOTE | 2024-01-03 11:56 | MHC.OFFWIV ---
Intake Vital Signs 01/03/24 11:56 Height 5 ft 4 in Weight 174 lb BMI 29.9 BP 130/84 Blood Pressure Location Lt brachial Position Sitting Pulse 94 Pulse Source Pulse Oximeter Temp 98.5 F Temp Source Oral Pulse Oximetry (%) 96 Oxygen Delivery Method Room Air Intake Visit Reasons: EP ?vaginitis Intake Note: pt here c/o of ? vaginitis. itching sensation. no discharge Patient Tobacco Use Status: Former Tobacco user Allergies Sulfa (Sulfonamide Antibiotics) Adverse Reaction (Verified 01/03/24 11:57) hives HPI HPI Comments History of Present Illness Details Patient is a 73-year-old female complaining of days of vaginal itching. She denies any discharge, foul odor, urinary tract infection symptoms. States she is monogamous with her fiance. She has tried Vagisil which works for a few hours but then the itching returns. [facility] Medical History (Updated 01/03/24 @ 12:43 by Aminta Edmond PA-C) Adenocarcinoma of gallbladder Surgical History (Updated 10/30/23 @ 10:12 by Jameson Willoughby MD) Status post cholecystectomy History of laparoscopic cholecystectomy (~10/20/23) Family History Daughter Mental health disorder Social History Household Members: Family Household Members Other:: , 3 children, lives with daughter, Housing: Condominium Do you presently have visiting nurse or other home services: No Alcohol intake: current Alcohol intake frequency: 0-2 drinks per day Alcohol type: wine Patient Tobacco Use Status: Former Tobacco user e-Cigarette/Vaping Use: Never Used service: No Current occupational status: retired Cognitive needs: No Hearing needs: No Vision needs: Yes Review of Systems Const All systems reviewed & are unremarkable except as noted in HPI and below Physical Exam Vital Signs: Last Vital Signs Temp 98.5 F 01/03/24 11:56 Pulse 94 01/03/24 11:56 BP 130/84 01/03/24 11:56 Pulse Ox 96 01/03/24 11:56 Oxygen Delivery Method Room Air 01/03/24 11:56 BMI result Body Mass Index 29.9 Const General: cooperative, healthy appearing, comfortable, no acute distress and well developed Orientation/consciousness: patient oriented x3 Limitations: no limitations HEENT Head: Yes normal to inspection Eyes General: appearance normal, both eyes and all related structures Neck Neck: Yes normal visual inspection and Yes full ROM Resp Effort & Inspection: normal respiratory effort and able to speak in complete sentences Neuro General: patient oriented x3 Extrem General: Yes normal to inspection Assessment & Plan Assessment & Plan (1) Vaginal itching: Code(s): N89.8 - Other specified noninflammatory disorders of vagina Plan: Recommended Monistat cream which is [id number], explained to patient and has 1% hydrocortisone cream versus lidocaine which is what the Vagisil has so this should work better for her irritated skin. Plan see above Coding Level of Care Code Est Pt Level 2 (26331) Diagnoses Vaginal itching N89.8
== END 2024-01-03 13:14 | disposition home or self-care (01) ==
PROVIDERS: PCP Internal Medicine; Visit Provider Physician Assistant
DX: N89.8 Other specified noninflammatory disorders of vagina (principal)
CPT/HCPCS: 99213

== ENCOUNTER 2024-09-07 13:33 | Outpatient (AMB) | payer MEDICARE, SELFPAY ==
[2024-09-07 13:42] VITALS: BP 124/76; PULSE 95; TEMP 37.1; O2SAT 97; BMI 28.8
--- NOTE | 2024-09-07 13:42 | MHC.PC.OV ---
Vital Signs 09/07/24 13:42 Height 5 ft 4 in Weight 168 lb BMI 28.8 BP 124/76 Blood Pressure Location Lt brachial Position Sitting Pulse 95 Pulse Source Pulse Oximeter Temp 98.8 F Temp Source Oral Pulse Oximetry (%) 97 Oxygen Delivery Method Room Air Intake Visit Reasons: PE Intake Note: Pt is here today for PE. Allergies Sulfa (Sulfonamide Antibiotics) Adverse Reaction (Verified 09/07/24 13:43) hives Tobacco use date assessed: 09/07/24 Fall risk assessment: 1 Fall in past year Last assessed Fall Risk: 09/07/24 Dental Screening Dental Screen Date: 09/07/24 Did you have a dental visit in the last 12 months?: Yes Did you have a dental problem in the last 6 months where you did not have access to dental care?: No Was dental information given to patient?: Patient has dentist HPI PE HPI Details Patient presents for PE. 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 Patient underwent chemotherapy and is currently in remission on immunotherapy. She is established with [facility]. Patient denies complaints. Patient is physically active exercising and hiking regularly. [facility] Medical History (Updated 09/07/24 @ 14:12 by Trinity Banuelos MD) Adenocarcinoma of gallbladder Surgical History Status post cholecystectomy History of laparoscopic cholecystectomy (~10/20/23) Family History Daughter Mental health disorder Social History Household Members: Family Household Members Other:: , 3 children, lives with daughter, Housing: Condominium Do you presently have visiting nurse or other home services: No Alcohol intake: current Alcohol intake frequency: 0-2 drinks per day Alcohol type: wine Patient Tobacco Use Status: Former Tobacco user e-Cigarette/Vaping Use: Never Used service: No Current occupational status: retired Cognitive needs: No Hearing needs: No Vision needs: Yes Questionnaire PHQ-9 Over the last 2 weeks, how often have you been bothered by any of the following problems? 1. Little interest or pleasure in doing things: not at all 2. Feeling down, depressed, or hopeless: not at all 3. Trouble falling or staying asleep, or sleeping too much: not at all 4. Feeling tired or having little energy: not at all 5. Poor appetite or overeating: not at all 6. Feeling bad about yourself - or that you are a failure or have let yourself or your family down: not at all 7. Trouble concentrating on things, such as reading the newspaper or watching television: not at all 8. Moving or speaking so slowly that other people could have noticed. Or the opposite - being so fidgety or restless that you have been moving around a lot more than usual: not at all 9. Thoughts that you would be better off or of hurting yourself in some way: not at all Total score: 0 Depression Screening Interpretation: Negative Depression Screening Done: Yes 90790 - PHQ-9 Billing: Yes Source: Developed by Drs. Vlad Caro, Kayla Mendoza, Rhett Baker and colleagues, with an educational zeb from [employer]. Thrive Questionnaire Date Thrive assessed: 09/07/24 I am a: Patient What is your living situation today?: I have a steady place to live Within the past 12 months, did the food you bought not last and you didn't have the money to get more?: Never true Within the past 12 months, did you worry whether your food would run out before you got money to buy more?: Never true Do you have trouble paying for medicines?: No Do you have trouble getting transportation to medical appointments?: No Do you have trouble paying your heating and electricity bill?: No Do you have trouble taking care of your child, family member or friend?: No Do you have trouble with day-to-day activities such as bathing, preparing meals, shopping, managing finances, etc.?: No Are you currently unemployed and looking for a job?: No Are you interested in more education?: No Please select the resources that you would like help with: None Currently or been in a relationship where the following occur: No concerns reported THRIVE Score: 0 AUDIT C Alcohol Use Questionnaire (AUDIT-C) 1. How often do you have a drink containing alcohol?: Never 3. How often do you have six or more drinks on one occasion?: Never Total Score: 0 STEPHIE-7 AMB Questionnaire STEPHIE-7 Date STEPHIE - 7 assessed: 09/07/24 Feeling nervous, anxious, or on edge: 0 = Not at all Not being able to stop or control worryin = Not at all Worrying too much about different things: 0 = Not at all Trouble relaxin = Not at all Being so restless that it is hard to sit still: 0 = Not at all Becoming easily annoyed or irritable: 0 = Not at all Feeling afraid as if something awful might happen: 0 = Not at all Total STEPHIE-7 score (0-4 normal; 5-9 mild; 10-14 moderate; 15-21 severe): 0 Source: Developed by Drs. Vlad Caro, Kayla Mendoza, Rhett Baker and colleagues, with an educational zeb from [employer]. STEPHIE-7 Assessment Billing STEPHIE-7 Assessment Tool: STEPHIE-7 Assessment 97835 Review of Systems Const All systems reviewed & are unremarkable except as noted in HPI and below Reports no additional complaints Eyes Reports no additional complaints ENT Reports no additional complaints Card Reports no additional complaints Resp Reports no additional complaints GI Reports no additional complaints Reports no additional complaints Physical exam (Primary Care) Vital Signs: Last Vital Signs Temp 98.8 F 09/07/24 13:42 Pulse 95 09/07/24 13:42 BP 124/76 09/07/24 13:42 Pulse Ox 97 09/07/24 13:42 Oxygen Delivery Method Room Air 09/07/24 13:42 BMI result Body Mass Index 28.8 Tobacco/Smoking Status: Tobacco use Status Tobacco use date assessed 09/07/24 09/07/24 13:50 Patient Tobacco Use Status Former Tobacco user 09/07/24 13:50 e-Cigarette/Vaping Use Never Used 09/07/24 13:50 PHQ-9: PHQ-9 Score PHQ-9: Total score 0 09/07/24 13:50 Depression Screening Interpretation: Negative Thrive Assessment: Date of Thrive Assessment Date Thrive assessed 09/07/24 09/07/24 13:50 Currently or been in a relationship where the following occur: No concerns reported Const General: no acute distress HENMT Head: Yes normal to inspection Mouth: Normal oral and palatal mucosa present Throat: Yes posterior oropharynx normal Eyes General: appearance normal, both eyes and all related structures Neck Neck: Yes no lymphadenopathy and Yes supple Resp Effort & Inspection: normal respiratory effort Auscultation: clear to auscultation bilaterally Cardio Rhythm: regular rhythm Heart sounds: S1 normal heart sound present and S2 normal heart sound present GI Inspection: Yes normal to inspection Palpation (GI): Soft to palpation Percussion: Yes normal to percussion Auscultation: normal bowel sounds Coding Level of Care Code Est Pt Prev Care >65y(57574) Diagnoses Adenocarcinoma of gallbladder C23 Annual physical exam Z00.00 Additional Codes STEPHIE-7 Assessment Billing - STEPHIE-7 Assessment Tool: STEPHIE-7 Assessment 13494 ([id number]) PHQ-9 - 83048 - PHQ-9 Billing: Yes ([id number]) Assessment & Plan Assessment & Plan (1) Adenocarcinoma of gallbladder: Comment: dxd 09/2023 s/p surgery, chemo therapy, on immunotherapy in remission, f/u [facility] oncology Code(s): C23 - Malignant neoplasm of gallbladder Category: Medical Plan: Follow-up with oncology (2) Annual physical exam: Comment: Negative Cologuard 2022, negative mammogram 08/22 Code(s): Z00.00 - Encounter for general adult medical examination without abnormal findings Category: Medical Plan: Well-balanced diet regular physical activity discussed with the patient she is up-to-date with the mammogram and had negative Cologuard last year
== END 2024-09-07 14:13 | disposition home or self-care (01) ==
PROVIDERS: PCP Internal Medicine; Visit Provider Internal Medicine
DX: C23 Malignant neoplasm of gallbladder (principal); Z00.00 Encounter for general adult medical examination without abnormal findings

== ENCOUNTER → 2024-09-07 13:33 | Outpatient (BNVA) | payer MEDICARE, SELFPAY | PROVIDERS: PCP Internal Medicine; Visit Provider Internal Medicine | DX: Z00.00 Encounter for general adult medical examination without abnormal findings (principal); C23 Malignant neoplasm of gallbladder | CPT/HCPCS: 96127; 99397 ==

== ENCOUNTER 2025-07-06 13:14 | Inpatient (IN) | payer MEDICARE, SELFPAY ==
--- NOTE | ~2025-07-06 | MR_ITS ---
EXAMINATION: MR BRAIN WITHOUT CONTRAST CLINICAL INFORMATION: stroke COMPARISON: CT of the head and CT angiogram of head and neck on July 06, 2025. TECHNIQUE: MRI of the brain was obtained using routine sequences without contrast. FINDINGS: Brain parenchyma: Numerous foci of restricted diffusion along the territory of the right middle and posterior cerebral arteries, the largest area involving the right hippocampus. Additional less numerous foci of restricted diffusion in the territory of the left middle and posterior cerebral arteries. Some of these foci of restricted diffusion are associated with T2/FLAIR hyperintensities. More confluent T2/FLAIR hyperintensity in the periventricular white matter likely represent chronic small vessel ischemic changes. No evidence of mass lesion or parenchymal hemorrhage. Ventricular system/extra-axial spaces: Mild generalized prominence of the ventricles and extra-axial CSF space, likely represents age-appropriate brain volume loss. No hydrocephalus. No extra-axial fluid collection. Extracranial structures: Asymmetric prominence of the peripheral vascular structures on the right side is related to the known multifocal infarcts. Arterial flow voids in the skull base appear preserved. Orbital globes are unremarkable. Paranasal sinuses and mastoid air cells are essentially clear. MR/MR head/brain wo con IMPRESSION: Findings compatible with bilateral and multiple embolic cerebral and cerebellar infarcts, involving predominantly the right middle and right posterior cerebral arteries. Differences in signal intensity suggests combination of acute and subacute phases. No MR evidence of parenchymal hemorrhage. Presence of abnormal findings communicated via secure text message system to the ordering provider at approximately 1:44 PM on July 07, 2025. Awaiting read confirmation. Electronically signed by: Shay Arevalo MD 07/07/2025 02:22 PM [facility]
--- NOTE | ~2025-07-06 | CT_ITS ---
EXAMINATION: CTA NECK WITH CONTRAST (STROKE) CTA BRAIN WITH CONTRAST (STROKE) CLINICAL INFORMATION: Status post fall. Head injury. Left facial droop. Left upper extremity weakness. COMPARISON: Correlated to noncontrast CT brain dated July 06, 2025. TECHNIQUE: CTA of the head and neck was performed in the axial plane from the mediastinum to the skull vertex using 70 mL Omnipaque 350 intravenous contrast. Additional reformatted multiplanar images including maximum intensity projection MIP images are generated on the CT workstation. This CT examination was performed using dose optimization techniques as appropriate, variously including the following: *Automated exposure control *Adjustment of mA and/or kV according to patient size (this includes techniques or standardized protocols for targeted exams where dose is matched to indication/reason for exam; i.e. extremities or head) *Use of iterative reconstruction technique DLP: 705 mGy-cm FINDINGS: The degree of stenosis determined by criteria similar to NASCET. Chest CTA: No aneurysm or dissection, aortic arch. Main pulmonary artery is patent without intraluminal filling defect.. Neck CTA: Right CCA: Normal patency. No focal stenosis. No intimal flap. Right ICA: Normal patency. No focal stenosis. No intimal flap. Left CCA: Normal patency. No focal stenosis. No intimal flap. Left ICA: Normal patency. No focal stenosis. No intimal flap. V1/V2 segments are patent without focal stenosis or intimal flap. Left vertebral artery slightly dominant. Tortuosity in the proximal segments. Origin from the subclavian arteries. Brain CTA: Anterior cerebral circulation: ICAs: Calcified plaques cavernous supraclinoid segments. Normal patency. No focal stenosis. No abrupt cut off. No vascular irregularity. MCA's: Normal patency. No focal stenosis. No abrupt cut off. Bifurcation/trifurcation demonstrated no vascular abnormality. ACAs: Normal patency. No occult stenosis. No abrupt cut off. No vascular irregularity. Ophthalmic arteries: Normal patency. No gross irregularity. Posterior communicating arteries are patent. The left is robust. No vascular irregularity. Posterior cerebral circulation: V3/V4 segments are patent without focal stenosis or intimal flap. Posterior inferior cerebral arteries are patent without vascular irregularity. Anterior inferior cerebral arteries are patent without gross irregularity. Basilar artery is patent without focal stenosis or intimal flap. Superior cerebellar arteries are patent without gross irregularity at the origin. respiratory care assistant: Normal patency. No focal stenosis. No abrupt cut off. Ancillary findings: Port-A-Cath reservoir in the anterior upper right chest wall and catheter into the SVC. 12 mm noncalcified pulmonary nodule in the superior segment right lower lung lobe. Soft tissue fullness in the mediastinum. No main cerebral venous sinus thrombosis. CT/CT angio head neck STROKE IMPRESSION: No main cerebral artery occlusion or embolus. No high degree stenosis or dissection. 12 mm pulmonary nodule, superior segment right lower lung lobe. Malignancy cannot be excluded. This critical test result is communicated to: Emergency physician Dr. Robert Almodovar, via tiger connect at 1:44 PM on July 16, 2025 with acknowledgment at 1:51 PM Electronically signed by: Bry Mcgrath MD 07/06/2025 01:53 PM JG
--- NOTE | ~2025-07-06 | US_ITS ---
CLINICAL HISTORY: Malignant ascites. The patient presents to interventional radiology for placement of a tunneled abdominal drainage catheter. PROCEDURES: 1. Real-time ultrasound-guided access into the abdominal left lower quadrant. 2. Placement of a 15.5 F tunneled abdominal drainage catheter. Clinician: Andi Brennan NP MEDICATIONS: -Fentanyl , Lidocaine 1% 10 mL SQ. -Antibiotics: Ancef -For additional details, please see nursing flowsheet. COMPLICATIONS: None. ESTIMATED BLOOD LOSS: <5 ml SPECIMENS: Ascites PROCEDURE NOTE: The procedure, risks, benefits, and alternatives were carefully explained to patient, and written informed consent was obtained. The patient was placed supine on the ultrasound table. A timeout was performed. The left lower abdomen was prepped and draped in usual sterile fashion. Local anesthesia was administered to the access site with lidocaine. Under ultrasound guidance, a 5 [place] by 7 cm [employer] catheter was advanced into the peritoneal cavity. Continuous back aspiration was performed and a thick, yellow mucous fluid was observed in the syringe. A J-wire was inserted into the catheter. Next, a subcutaneous tunnel tract was anesthetized. A small incision and dermatotomy was performed and advancement of the catheter was then done in a tunneled fashion to the access site. The catheter was cut to appropriate length. Serial dilatation was then performed and the J-wire was removed, the 15.5 [place] Citizen abdominal drainage catheter was placed through the peel-away sheath. The peel-away sheath was removed. Post ultrasonographic examination demonstrated the tip of the catheter successfully in a more dependent portion of the peritoneal cavity. The access site and catheter entry site were both secured with a nonabsorbable suture. The catheter was attached to a Vacutainer where fluid was observed being passively removed. By the end of the procedure, a total of 200 mL of fluid was removed. A sterile dressing was applied. The patient was stable after the procedure and was transferred to the floor. This procedure was performed with a dedicated nurse and continuous monitoring of vital signs. FINDINGS: 1. Large volume ascites 2. Paracentesis 3. Successful placement of left lower quadrant abdominal drainage catheter US/US insertion pluerx cath IMPRESSION: Placement of a tunneled abdominal drainage catheter in the left lower quadrant PLAN: -The catheter may be used immediately. Daily flushing at the discretion of [facility]NA services. Please remove medial abdominal suture in 7-14 days. This procedure was performed by Andi Brennan NP, and directly supervised by Manuel Landaverde M.D.. Electronically signed by: Manuel Landaverde MD 07/22/2025 02:37 PM [facility] Workstation: [id number]
--- NOTE | ~2025-07-06 | CT_ITS ---
EXAMINATION: CT HEAD WITHOUT CONTRAST CLINICAL INFORMATION: Fall, head strike, left facial droop, and left arm weakness COMPARISON: None available. TECHNIQUE: Contiguous axial imaging was performed from the skull base to vertex without intravenous administration of contrast. This CT examination was performed using dose optimization techniques as appropriate, variously including the following: *Automated exposure control *Adjustment of mA and/or kV according to patient size (this includes techniques or standardized protocols for targeted exams where dose is matched to indication/reason for exam; i.e. extremities or head) *Use of iterative reconstruction technique FINDINGS: There is no acute ischemic change. There is mild generalized atrophy and periventricular hypodensities. There is no intracranial hemorrhage. There is no mass-effect or midline shift. Basal cisterns and ventricles are within normal limits for age/cerebral volume. Orbits are symmetrical and unremarkable. Paranasal sinuses and mastoid air cells are pneumatized. There are no bony abnormalities. CT/CT head for STROKE IMPRESSION: No acute intracranial abnormality. Dr. Almodovar notified via [employer]. Delivered at 1:33pm EST Electronically signed by: Minor Vital MD 07/06/2025 01:34 PM EST
--- NOTE | 2025-07-06 13:19 | ED_ITS ---
HPI - Altered Mental Status General Chief Complaint: Stroke Stated Complaint: STROKE ALT,FALL IN TUB,SLURR,APHASIA,+THIN,QPT2169 Time Seen by Provider: 07/06/25 13:19 Source: patient, family () and EMS ([employer]) Mode of arrival: EMS Limitations: no limitations History of Present Illness ED Provider: Dr. Robert Almodovar HPI narrative: 75-year-old female with a history of adenoma of the gallbladder status post cholecystitis receiving chemotherapy treatment chemotherapy through [facility], anxiety, anemia who presents emergency department for evaluation of a fall while in shower, slurred speech and left-sided facial droop with left- sided weakness. According to the , he woke up at around 10:00 and his was still in bed but she appeared to be normal with normal speech. At 10:45 the patient fell in the shower. The states the patient's speech was slurred. He called an ambulance and the patient was assisted out of the shower. The states that he did not want her transported and he wanted to watch her at home. At 12:45 hours, the states that the patient's symptoms were worse. Her speech was more slurred, he noticed that she was stuttering and having difficulty with word finding, he also noted left-sided facial droop. Patient was then transported to the emergency department as a stroke protocol. The patient has a history of right lower extremity DVT and is on Eliquis and she took her last dose yesterday. I evaluated the patient on the ED stretcher patient had a left facial droop, left arm and left leg drift against gravity. Patient was sent directly to CT scan for CT head and angiogram of head and neck. Related Data Home Medications ?Medication ?Instructions ?Recorded ?Confirmed apixaban 5 mg tablet (Eliquis) 5 mg PO BID 07/06/25 docusate sodium 100 mg tablet 100 mg PO DAILY PRN Cons tipation 07/06/25 07/06/25 famotidine 20 mg tablet 20 mg PO BID 07/06/25 loperamide 2 mg tablet 4 mg PO BID PRN Loose Stool 07/06/25 07/06/25 Allergies Allergy/AdvReac Type Severity Reaction Status Date / Time albumin colloid, human AdvReac Redness of Verified 07/06/25 13:39 Skin Sulfa (Sulfonamide AdvReac hives Verified 09/07/24 13:43 Antibiotics) Review of Systems 2 Review of Systems: Yes all other systems are reviewed and are negative [facility] Past Medical History [facility] Narrative: Social history: Patient lives with her who is here in the emergency department with her. She denies tobacco use. She occasionally drinks alcohol and did have a glass of wine last night. Patient does take THC gummies 5 mg, 2 to 3 times a week in order to relax. Medical History (Updated 07/07/25 @ 07:08 by Robert Almodovar MD) History of DVT (deep vein thrombosis) Adenocarcinoma of gallbladder Surgical History Status post cholecystectomy History of laparoscopic cholecystectomy (~10/20/23) Family History Family History Daughter Mental health disorder Social History Social History Household Members: Spouse Household Members Other:: , 3 children, lives with daughter, Housing: House Do you presently have visiting nurse or other home services: No Alcohol intake: current Alcohol intake frequency: 0-2 drinks per day Alcohol type: wine Patient Tobacco Use Status: Former Tobacco user e-Cigarette/Vaping Use: Never Used Advance Directives: No Advance Directives Information Provided: Yes Recently lost weight without trying: Yes How much weight loss: 2-13 pounds Eating poorly because of decreased appetite: Yes Nutrition screen score: 4 Patient : No service: No Current occupational status: retired Cognitive needs: No Hearing needs: No Vision needs: Yes Physical Exam ED Vital Signs: Vital Signs - 24 hr 07/06/25 13:34 07/06/25 14:45 Temperature 97.8 F 97.9 F Pulse Rate 105 H 97 Respiratory Rate 18 18 Blood Pressure 130/81 128/81 Pulse Oximetry 98 99 Oxygen Delivery Method Room Air Room Air BMI result Body Mass Index 23.3 Vital signs revealed tachycardia with a heart rate of 105 otherwise unremarkable Exam: General: Awake, alert in no distress, patient does have slow speech and difficulty with word finding. She knew her age but did not know the month. Head: Normocephalic, atraumatic EENT: PERRL, sclera and conjunctiva are normal, mouth with no erythema or exudates Neck: Supple, no adenopathy Lung: breath sounds symmetric, no wheezing, no rales and no rhonchi Chest: symmetric movement, nontender Heart: regular rate and rhythm, normal S1, S2 no murmurs or rubs Abdomen: soft, non-tender, nondistended, normal bowel sounds Back: no vertebral tenderness, no CVAT Extremities: no deformities, moves all extremities symmetrically, no edema Neuro: General: ?Awake, alert, oriented to age but not month, slow speech with difficulty with word finding and mild dysarthria Cranial nerves: ?Cranial nerves 2 through 12 were intact except for mild left facial droop of the lower lip sparing the forehead Strength: ?Moves all extremities symmetrically, patient has drift of the left upper extremity and left lower extremity against gravity Cerebellar: ?Poor [id number]-hw-jspt-to-finge left greater than right, poor rapid finger movement left greater than right, poor heel to west left greater than right Psych: Pleasant, cooperative NIH Stroke Scale Time: 14:25 Level of Consciousness: Alert Level of Consciousness Questions: Answers both questions correctly (Incorrect month) Level of Consciousness Commands: Performs both tasks correctly Best Gaze: Normal Visual: No visual loss Facial Palsy: Minor paralyis (Left lower lip pulse) Motor Arm (Right): No drift Motor Arm (Left): Drift Motor Leg (Right): No drift Motor Leg (Left): Drift Limb Ataxia: Present in two limbs (Left upper and left lower extremity) Sensory: Normal Best Language: Mild to moderate aphasia Dysarthia: Mild to moderate dysarthria Extinction and Inattention: No abnormality Score: 7 Medications Administered Generic Name Dose Route Start Last Admin Trade Name Freq PRN Reason Stop Dose Admin Famotidine 20 mg 07/06/25 21:00 07/06/25 22:14 Famotidine 20 Mg Tablet PO 20 mg BID MELANIA Administration Sodium Chloride 3 ml 07/07/25 00:00 07/07/25 00:41 0.9 % Sodium Chloride Flush 3 Ml Syringe IVFLUSH Not Given QSHIFT MELANIA Discontinued Medications Generic Name Dose Route Start Last Admin Trade Name Freq PRN Reason Stop Dose Admin Apixaban 5 mg 07/06/25 22:00 07/06/25 22:13 Apixaban 5 Mg Tablet PO 07/06/25 22:01 5 mg ONCE ONE Administration Heparin Sodium (Porcine) 5,000 unit 07/06/25 18:00 07/06/25 18:55 Heparin Sodium,Porcine 5,000 Unit/Ml Vial SUBCUT Not Given Q12H MELANIA Iohexol 100 ml 07/06/25 13:38 07/06/25 13:39 Iohexol 350 Mg/Ml 100 Ml Infus..Btl IV 07/06/25 13:39 70 ml ONCE ONE Administration Medical Decision Making Medical Decision Making [facility] Narrative: 75-year-old female with a history of adenoma of the gallbladder status post cholecystitis receiving chemotherapy treatment chemotherapy through [facility], anxiety, anemia who presents emergency department for evaluation of a fall while in shower, slurred speech and left-sided facial droop with left- sided weakness. Last well-known time was 10:00 hours. The patient fell in the shower at 10:45 hours and was noted to have slurred speech but not transported to the emergency department as per the 's request. Patient's speech became more slurred, she was stuttering, noticed left facial and called 911 and the patient was transported to the emergency department as a stroke alert. Patient is on Eliquis for DVT and took her last dose last night. Vital signs revealed an elevated heart rate of 105 beats per minute otherwise unremarkable. Physical examination revealed a woman that has awake able to state her age but missed identified the month. Patient had a mild left facial droop, difficulty with word finding and dysarthric speech. She also had a drift against gravity of her left upper and lower extremity. She also had limb ataxia of her upper and lower extremity. NIH stroke scale was 7 Differential diagnosis: ?Includes but is not limited to skull fracture, intracranial hemorrhage, stroke, large vessel occlusion, Workman's palsy, anemia, electrolyte abnormalities Course: 14:32 My independent interpretation patient's laboratory evaluation is as follows: WBC was normal. Normocytic anemia with an H&H of 9.0 and 27.9-unchanged compared to previous. Elevated PT INR 16.5 and 1.4, low PTT of 25.3. Elevated BUN 18. Low calcium 8.3. Elevated alk-phos 128. High sensitivity troponin I was elevated 2480.5, I will repeat a 1 hour troponin at 1445 hours- most likely Type2 NSTEMI caused by stroke. Ethanol was below detectable limits. COVID-19, influenza and RSV tests were negative CT head revealed no intra-cranial hemorrhage, skull fracture or bleed. CT angiogram head and neck revealed no large vessel occlusion The patient is on Eliquis therefore she is not a TNK candidate and I did discuss this with the patient and the patient's . Patient's presentation is concerning for stroke and Type 2 myocardial injury/NSTEMI cause by stoke and I will discuss the patient's presentation with the covering hospitalist. 16:45 Patient's repeat 1 hour troponin was 2870.6, which did not increased by more than 50%. Patient most likely has a an NSTEMI from type 2 injury. Differential Diagnosis Differential Diagnoses: The differential diagnosis associated with the presentation includes (See above) Admission/Observation Consideration of admission/observation: Escalation of care including admission/observation considered (Yes) Consult Healthcare Provider Management of the patient was discussed with: Hospitalist Lab Data MDM Lab Attestation statement: I reviewed the patient's lab results. 07/06/25 13:46 07/06/25 13:46 Labs: Lab Results 07/06/25 07/06/25 07/06/25 Range/Units 13:20 13:46 14:43 WBC 9.3 (4.8-10.8) X10*3/uL RBC 2.83 L (4.20-5.50) X10*6/uL Hgb 9.0 L (12.0-16.0) g/dl Hct 27.9 L (37.0-47.0) % MCV 98.6 H (80.0-98.0) fL MCH 31.8 (27.0-33.0) pg MCHC 32.3 (31.0-35.0) g/dl RDW 18.7 H (11.0-16.0) % Plt Count 173 D (160-400) X10*3/uL MPV 8.8 L (9.4-12.3) fL Immature Gran % (Auto) 1.4 H (0.0-0.4) % Neut % (Auto) 84.1 H (45-73) % Lymph % (Auto) 6.0 L (20-40) % [place] % (Auto) 7.8 (2-11) % Eos % (Auto) 0.4 (0-4) % Baso % (Auto) 0.3 (0-2) % Lymph # (Auto) 0.6 L (1.2-4.9) X10*3/uL [place] # (Auto) 0.7 (0.1-1.2) X10*3/uL Eos # (Auto) 0.0 (0.0-0.4) X10*3/uL Baso # (Auto) 0.0 (0.0-0.2) X10*3/uL Abs Immat Gran (auto) 0.13 H (0.00-0.03) X10*3/uL Absolute Neuts (auto) 7.8 (2.0-8.3) x10*3/uL Absolute Nucleated RBC 0.000 (0.0-0.012) X10*3/uL Nucleated RBC % (auto) 0.0 (0.0-0.2) /100WBC PT 16.5 H (11.2-13.5) SEC Whole Blood PT 14.4 H (11.1-13.5) sec INR 1.4 H (0.9-1.1) Whole Blood INR 1.2 H (0.9-1.1) APTT 25.3 L (26.7-34.1) SEC Sodium 136 (135-145) mmol/L Potassium 3.6 (3.3-5.1) mmol/L Chloride 102 (96-108) mmol/L Carbon Dioxide 26 (22-29) mmol/L Anion Gap 12 (12-20) BUN 18 H (9-16) mg/dL Creatinine 0.73 (0.5-1.4) mg/dL Estim Creat Clear Calc 54.2 Estimated GFR > 60 POC Glucose 102 (60-115) mg/dL Random Glucose 97 (60-115) mg/dL Calcium 8.3 L D (8.4-10.2) mg/dL Total Bilirubin 0.8 (0.0-1.0) mg/dL Direct Bilirubin 0.4 (0.0-0.5) mg/dL AST 53 H (5-31) U/L ALT < 6 (0-31) U/L Alkaline Phosphatase 128 H (39-117) U/L Troponin I High Sens 2480.5 H* 2870.6 H* (<3.5-17.0) ng/L Total Protein 6.3 L (6.5-8.0) g/dL Albumin 2.8 L (3.5-5.0) g/dL Triglycerides 137 (<150) mg/dL Cholesterol 166 (<200) mg/dL LDL Cholesterol, Calc 91 (<100) mg/dL HDL Cholesterol 48 (>40) mg/dL Ethyl Alcohol < 10 mg/dL Influenza Type A (PCR) NEGATIVE (Negative) Influenza Type B (PCR) NEGATIVE (Negative) RSV RNA Qual (PCR) NEGATIVE (Negative) SARS-CoV-2 RNA (RT-PCR) NEGATIVE (Negative) Independent Interpretation I performed an independent interpretation of an: EKG Interpretation: My independent interpretation patient's 12 EKG done on 07/06/2025 at 13:34 hours is as follows: Sinus tachycardia with a rate of 108 beats per minute, normal UT interval, QRS duration, prolonged QTC of 479 milliseconds, Q-wave noted in lead 3, no ST segment elevation, no ST segment depression, no significant T-wave abnormalities. Radiology Impression Discussion of test interpretation with radiology: I have reviewed the radiologist's reading. Radiologist Impression: CT/CT head for STROKE IMPRESSION: No acute intracranial abnormality. Dr. Almodovar notified via [employer]. Delivered at 1:33pm EST Electronically signed by: Minor Vital MD 07/06/2025 01:[address] angio head neck STROKE IMPRESSION: No main cerebral artery occlusion or embolus. No high degree stenosis or dissection. 12 mm pulmonary nodule, superior segment right lower lung lobe. Malignancy cannot be excluded. This critical test result is communicated to: Emergency physician Dr. Robert Almodovar, via [employer] connect at 1:44 PM on July 16, 2025 with acknowledgment at 1:51 PM Independent Historian Clinical information obtained from an independent historian. History obtained from or confirmed by: Spouse External Record Review External record reviewed: Office record (GI) Chronic Conditions Patient?s care impacted by: Other (Gallbladder cancer, DVT) Critical Care Time Critical Care Time Critical Care Time: Yes Total Critical Care Time: 80 Attestation: Critical Care: The patient was critically ill with a high probability of imminent or life threatening deterioration. I spent greater than 30 minutes of discontinuous time evaluating the patient,delivering critical care at the bedside, discussing and evaluating pertinent data with consultants. Critical care time does not include time spent performing separately billable procedures or teaching. Total time spent performing critical care was 80 minutes. Discharge Plan Discharge Clinical Impression: Stroke, Fall, Elevated troponin I level, Acute non-ST elevation myocardial infarction (NSTEMI) Patient Disposition: Admitted As Inpatient Interventions: Admission Worksheet (ED) Last Done: 07/06/25 19:57 Discharge Date/Time: 07/06/25 20:28
--- NOTE | 2025-07-06 13:20 | ECG_ITS ---
Test Reason : ?STROKE Blood Pressure : */* mmHG Vent. Rate : 108 BPM Atrial Rate : 108 BPM P-R Int : 154 ms QRS Dur : 82 ms QT Int : 358 ms P-R-T Axes : 52 -31 69 degrees QTcB Int : 479 ms Sinus tachycardia Left axis deviation Nonspecific ST abnormality Abnormal ECG When compared with ECG of 20-Oct-2023 18:14, QRS axis Shifted left Referred By: Robert Almodovar Electronically Signed By: MARKO CHAPPELL MD
[2025-07-06 13:25] LABS: Prothrombin Time Whole Bld POC 14.4 sec (11.1-13.5); ~PT, ~INR - Anti Coag Clinic 1.2 (0.9-1.1)
[2025-07-06 13:26] LABS: Glucose, Whole Blood 102 mg/dL (60-115)
[2025-07-06 13:34] VITALS: BP 123/79; BP 130/81; PULSE 105; PULSE 114; RESP 18; TEMP 36.6; O2SAT 98; BMI 23.3
[2025-07-06] MEDS: iohexoL 350 MG/ML 100 ML INFUS..BTL IV (13:39)
[2025-07-06 13:52] LABS: MANUAL DIFF FLAG NO
[2025-07-06 13:53] LABS: Hematocrit 27.9 % (37.0-47.0); Hemoglobin 9.0 g/dl (12.0-16.0); Imm Gran Abs Auto 0.13 X10*3/uL (0.00-0.03); Imm Gran Pct Auto 1.4 % (0.0-0.4); Lymphocytes Absolute Auto 0.6 X10*3/uL (1.2-4.9); Mean Corpuscular HGB Conc 32.3 g/dl (31.0-35.0); Mean Corpuscular Hemoglobin 31.8 pg (27.0-33.0); Mean Corpuscular Volume 98.6 fL (80.0-98.0); NRBC Abs Auto 0.000 X10*3/uL (0.0-0.012); NRBC Pct Auto 0.0 /100WBC (0.0-0.2); Platelet Count 173 X10*3/uL (160-400); Red Blood Count 2.83 X10*6/uL (4.20-5.50); White Blood Count 9.3 X10*3/uL (4.8-10.8)
--- NOTE | 2025-07-06 13:54 | MHC.STROKE ---
Called to stroke alert in ED. Pt was in CT scan upon my arrival. Pt in [facility] from EMS According to RN, patient fell in shower and family called EMS Pt recently finished chemo for gallbladder cancer. Pt reports that she takes Eliquis BID Pt moved to room 12. Alert and oriented x 4. Answering questions appropriately. Speech seems a little slow and thick however patient states that she doesn't notice any change in her speech. Pt with mild left sided facial droop and weakness to left arm and leg. She reports her last chemo treatment was 2 weeks ago. Remain in [facility] [place] Stroke Education/protocol reviewed with patient. Medical hx reviewed along with medications. Pamphlet provided. Will continue to assist as needed.
[2025-07-06 14:01] LABS: INTERNATIONAL NORM RATIO 1.4 (0.9-1.1); Prothrombin Time 16.5 SEC (11.2-13.5)
[2025-07-06 14:03] LABS: Partial Thromboplastin Time 25.3 SEC (26.7-34.1)
[2025-07-06 14:04] LABS: Stroke Lab Use COMPLETE
[2025-07-06 14:08] LABS: Alanine Aminotransferase < 6 U/L (0-31); Albumin Level 2.8 g/dL (3.5-5.0); Alkaline Phosphatase 128 U/L (39-117); Anion Gap 12 (12-20); Aspartate Amino Transferase 53 U/L (5-31); Blood Urea Nitrogen 18 mg/dL (9-16); Calcium 8.3 mg/dL (8.4-10.2); Carbon Dioxide 26 mmol/L (22-29); Chloride 102 mmol/L (96-108); Cholesterol 166 mg/dL (<200); Creatinine Clr Calc Pharmacy 54.2; Estimated Glomerular Filt Rate > 60; HDL Cholesterol 48 mg/dL (>40); Potassium 3.6 mmol/L (3.3-5.1); Sodium 136 mmol/L (135-145); Total Protein 6.3 g/dL (6.5-8.0); Triglycerides 137 mg/dL (<150)
[2025-07-06 14:31] LABS: Resp Syncy Virus RNA Qual PCR NEGATIVE (Negative); SARS COV2 PCR INHOUSE NEGATIVE (Negative)
[2025-07-06 14:45] VITALS: BP 128/81; PULSE 97; RESP 18; TEMP 36.6; O2SAT 99
[2025-07-06 15:27] LABS: Troponin-I High Sensitivity 2870.6 ng/L (<3.5-17.0)
--- NOTE | 2025-07-06 16:32 | PM.IMHP ---
History of Present Illness Date of Service: 07/06/25 Chief Complaint: Fall. facial droop 75 year old women with a history of gallbladder adenoma status post coli cystitis receiving chemotherapy at [facility]. She is presenting to the ER after a fall in the shower. She was noted to have slurred speech and left-sided facial droop with left-sided paralysis. Last known well time was 10:00 this morning. She was also noted to have word-finding difficulties and mild dysarthric speech. Unfortunately, the patient is on Eliquis and is not a candidate for TNK. Her troponin was also noted at 2870. Head and neck CTA negative for cerebral artery occlusion or embolus, no high-degree stenosis or dissection, head CT negative for intracranial abnormality. Stable blood pressure. She will be admitted for management of stroke Review of Systems Review of Systems: Denies any recent fever chills or decrease in appetite respiratory denies any shortness of breath or cough cardiovascular denies chest pain gastrointestinal denies any dysphagia abdominal pain nausea vomiting or diarrhea genitourinary denies any dysuria frequency or hematuria musculoskeletal denies any joint pain or swelling neuropsych see HPI all other systems reviewed are negative [facility] Medical History (Updated 07/06/25 @ 18:35 by Bhavana Davis NP) History of DVT (deep vein thrombosis) Adenocarcinoma of gallbladder Family History Daughter Mental health disorder Surgical History Status post cholecystectomy History of laparoscopic cholecystectomy (~10/20/23) Social History Household Members: Family Household Members Other:: , 3 children, lives with daughter, Housing: Condominium Do you presently have visiting nurse or other home services: No Alcohol intake: current Alcohol intake frequency: 0-2 drinks per day Alcohol type: wine Patient Tobacco Use Status: Former Tobacco user e-Cigarette/Vaping Use: Never Used Advance Directives: No Advance Directives Information Provided: Yes service: No Current occupational status: retired Cognitive needs: No Hearing needs: No Vision needs: Yes Meds Allergies Allergy/AdvReac Type Severity Reaction Status Date / Time albumin colloid, human AdvReac Redness of Verified 07/06/25 13:39 Skin Sulfa (Sulfonamide AdvReac hives Verified 09/07/24 13:43 Antibiotics) Home Medications ?Medication ?Instructions ?Recorded ?Confirmed ?Last Taken ?Type apixaban 5 mg tablet (Eliquis) 5 mg PO BID 07/06/25 07/06/25 07/05/25 History docusate sodium 100 mg tablet 100 mg PO DAILY PRN Constipation 07/06/25 07/06/25 07/05/25 History famotidine 20 mg tablet 20 mg PO BID 07/06/25 07/06/25 07/05/25 History loperamide 2 mg tablet 4 mg PO BID PRN Loose Stool 07/06/25 07/06/25 07/05/25 History Physical Exam Vital Signs and Narrative: Vital Signs: Last Vital Signs Temp 97.9 F 07/06/25 14:45 Pulse 97 07/06/25 14:45 Resp 18 07/06/25 14:45 BP 128/81 07/06/25 14:45 Pulse Ox 99 07/06/25 14:45 O2 Del Method Room Air 07/06/25 14:45 BMI result Body Mass Index 23.3 Appearing facial droop, studdered speech head is normocephalic atraumatic eyes pupils are PERRLA sclera is anicteric mouth throat mucous membranes are intact and moist neck is supple no lymphadenopathy, no JVD noted lung sounds are clear to auscultation heart regular rate rhythm, clear S1, S2 positive bowel sounds, abdomen is soft, nontender neuro ledt sided facial droop, dense paralysis to left upper and lower extremities Results Labs 07/06/25 13:46 07/06/25 13:46 Labs: Laboratory Results - last 24 hr 07/06/25 07/06/25 07/06/25 13:20 13:46 14:43 MCV 98.6 H MCH 31.8 MCHC 32.3 RDW 18.7 H Plt Count 173 D MPV 8.8 L Immature Gran % (Auto) 1.4 H Neut % (Auto) 84.1 H Lymph % (Auto) 6.0 L Blaine % (Auto) 7.8 Eos % (Auto) 0.4 Baso % (Auto) 0.3 Lymph # (Auto) 0.6 L Blaine # (Auto) 0.7 Eos # (Auto) 0.0 Baso # (Auto) 0.0 Abs Immat Gran (auto) 0.13 H Absolute Neuts (auto) 7.8 Absolute Nucleated RBC 0.000 Nucleated RBC % (auto) 0.0 PT 16.5 H Whole Blood PT 14.4 H INR 1.4 H Whole Blood INR 1.2 H APTT 25.3 L Anion Gap 12 Estim Creat Clear Calc 54.2 Estimated GFR > 60 POC Glucose 102 Random Glucose 97 Calcium 8.3 L D Total Bilirubin 0.8 Direct Bilirubin 0.4 AST 53 H ALT < 6 Alkaline Phosphatase 128 H Troponin I High Sens 2480.5 H* 2870.6 H* Total Protein 6.3 L Albumin 2.8 L Triglycerides 137 Cholesterol 166 LDL Cholesterol, Calc 91 HDL Cholesterol 48 Ethyl Alcohol < 10 Influenza Type A (PCR) NEGATIVE Influenza Type B (PCR) NEGATIVE RSV RNA Qual (PCR) NEGATIVE SARS-CoV-2 RNA (RT-PCR) NEGATIVE Imaging Radiologist's Impressions: Impressions Head CT 07/06/25 13:24 IMPRESSION: No acute intracranial abnormality. Dr. Almodovar notified via [employer]. Delivered at 1:33pm EST Electronically signed by: Minor Vital MD 07/06/2025 01:34 PM EST RP Head/Neck CTA 07/06/25 13:24 IMPRESSION: No main cerebral artery occlusion or embolus. No high degree stenosis or dissection. 12 mm pulmonary nodule, superior segment right lower lung lobe. Malignancy cannot be excluded. This critical test result is communicated to: Emergency physician Dr. Robert Almodovar, via [employer] connect at 1:44 PM on July 16, 2025 with acknowledgment at 1:51 PM Electronically signed by: Bry Mcgrath MD 07/06/2025 01:53 PM EST RP Assessment and Plan (1) Stroke: Qualifiers: Laterality of affected vessel: right Status: Acute Plan 75 year old women admitted for possible TIA Stroke Left sides facial droop, paralysis and stuttered speech Monitor on Telemetry Neurology consultation asa and statin PT/OT MRI Echocardiogram Elevated troponin likely secondary IN from stroke asa and statin echo Fall ? from stroke in the shower no injury PT hx of DVT 11/2024 at [facility] Eliqu Gallbladder carcinoma Currently undergoing chemotherapy at [facility] DVT prophylaxis with Heparin, may resume eliluisis tomorrow Full code Quality Stroke Does the patient have a stroke diagnosis?: Yes Reason for No Anti-thrombotic by Day Two: N/A - Med Ordered VTE Prior VTE?: Yes VTE Risk Level:: Medical - moderate - high VTE Device Contraindication: Treatment Not Indicated VTE Drug Contraindication: N/A - Med Ordered
--- NOTE | 2025-07-06 18:08 | PHA.MEDREC ---
Addendum entered by Manuel Solo RPh 07/06/25 18:29: Med rec reviewed Original Note: Pharmacy Consult ? Medication Reconciliation Pharmacy has completed the medication reconciliation. Spoke with pt and spouse and they confirmed pt medications.
--- NOTE | 2025-07-06 18:18 | PHA.MEDREC ---
Pharmacy Consult ? Medication Reconciliation Pharmacy has completed the medication reconciliation. Spoke with pt and he confirmed his medications. Pt confirmed he is taking Trazodone 150mg tabs once at bedtime as needed for sleeo; pt confirmed he was filling at [facility]. Called [facility] and they have not filled Trazodone since 06/2024.
--- OUTSIDE RECORDS SUMMARY | 2025-07-06 20:11 | XMS_ITS | Patient Health Record ---
Author Organization [facility] Gabe Address [address] [place] [address] Care Team Providers Care Coppersmith Apprentice Name Role Phone Trinity Banuelos MD Primary Care Provider Valarie Nunes Unavailable [phone] Allergies Allergen (clinical drug ingredient) Drug/Non Drug Allergy documented on EMR Reaction Allergy Type Onset Date Status Substance with sulfonamide structure and antibacterial mechanism of action (substance) Sulfa Antibiotics hives Drug Allergy Active Reason For Referral No Information Medications Medication SIG (Take, Route, Frequency, Duration) Notes Start Date End Date Status Imfinzi 120 MG/2.4ML as directed Intravenous Once a month Active Social History Tobacco Use: Social History Observation Description Date Details (start date - stop date) Never Smoker NA - NA Alcohol Screen Question Answer Notes Did you have a drink containing alcohol in the p ast year? Yes Points 0 Interpretation Negative Tobacco use other than smoking: Question Answer Notes Are you an other tobacco user? No Tobacco Control (Standard) Question Answer Notes Tobacco use: Nonsmoker Additional Findings: Tobacco non-user Current no nsmoker Problems Problem Type SNOMED Code ICD Code Onset Dates Problem Status W/U Status Risk Notes Problem Acquired hammer toe of right foot (87087792694628 05) Other hammer toe(s) (acquired), right foot (M20.41) Active confirmed Problem Acquired hammer toe of left foot (83164064830482 03) Other hammer toe(s) (acquired), left foot (M20.42) Active confirmed Problem Contracture of joint of right foot (disorder) (47792268579757 2) Contracture, right foot (M24.574) Active confirmed Problem PlantarFlexion o f metatarsal of right foot (M21.6X1) Active confirmed Problem Arthritis of right foot (07166365901383 04) Arthritis of right foot (M19.071) Active confirmed Vital Signs Blood pressure diastolic 70 mm Hg 10/13/2024 Height 5ft 4in in 10/13/2024 Blood pressure systolic 121 mm Hg 10/13/2024 Weight 165 lbs 10/13/2024 BMI 28.32 kg/m2 10/13/2024 Encounters Encounter Location Date Provider Diagnosis [facility] [address] [address] 10/13/2024 Valarie Lombardo Other hammer toe(s) (acquired), right foot M20.41 ; Contracture, right foot M24.574 ; Arthritis of right foot M19.071 and Subluxation of metatarsophalangeal joint of toe, subsequent encounter S93.149D [facility] [address] [address] 10/13/2024 Valarie Lombardo Assessments Encounter Date Diagnosis (ICD Code) Assessment Notes Treatment Notes Treatment Clinical Notes Section Notes 10/13/2024 Other hammer toe(s) (acquired), right foot (ICD-10 - M20.41) 10/13/2024 Contracture, right f oot (ICD-10 - M24.574) 10/13/2024 Arthritis of right f oot (ICD-10 - M19.071) 10/13/2024 Subluxation of metatarsophalangeal joint of toe, subsequent encounter (ICD-10 - S93.149D) Plan Of Treatment Pending Test Test Name Order Date X ray : Foot, right 3V 10/13/2024 Insurance Providers Payer Name Payer Address Payer Phone Subscriber Number Group Number Insured Name Patient Relationship to Insured Coverage Start Date Coverage End Date Dangelo Conte [id number] JOSELIT[place] [phone] [id number] Luis Lyndsay Self - patient is the insured Medical (General) History Medical History History ICD Code Measles Chicken pox Dental implants Gallbladder cancer Surgical History Surgery Date(Month/Year) benign lipoma removal, left pectoral gall stones removed 2023 gall bladder cancer, chemo
[2025-07-06 20:16] VITALS: BP 137/87; PULSE 107; RESP 16; TEMP 36.6; O2SAT 98
[2025-07-06 21:00] VITALS: BP 123/71; PULSE 98; RESP 16; TEMP 36.1; O2SAT 97
[2025-07-06 21:12] VITALS: BMI 23.5
[2025-07-06 23:52] VITALS: BP 122/80; PULSE 90; RESP 16; TEMP 36.7; O2SAT 98
[2025-07-07 03:50] VITALS: BP 128/79; PULSE 95; RESP 16; TEMP 36; O2SAT 98
[2025-07-07 07:01] VITALS: BP 113/73; PULSE 87; RESP 18; TEMP 36.6; O2SAT 99
[2025-07-07 07:06] LABS: Hematocrit 27.9 % (37.0-47.0); Hemoglobin 9.1 g/dl (12.0-16.0); Mean Corpuscular HGB Conc 32.6 g/dl (31.0-35.0); Mean Corpuscular Hemoglobin 31.8 pg (27.0-33.0); Mean Corpuscular Volume 97.6 fL (80.0-98.0); NRBC Abs Auto 0.000 X10*3/uL (0.0-0.012); NRBC Pct Auto 0.0 /100WBC (0.0-0.2); Platelet Count 186 X10*3/uL (160-400); Red Blood Count 2.86 X10*6/uL (4.20-5.50); White Blood Count 9.1 X10*3/uL (4.8-10.8)
[2025-07-07 07:30] LABS: Alanine Aminotransferase 6 U/L (0-31); Albumin Level 2.9 g/dL (3.5-5.0); Alkaline Phosphatase 126 U/L (39-117); Anion Gap 13 (12-20); Aspartate Amino Transferase 52 U/L (5-31); Blood Urea Nitrogen 15 mg/dL (9-16); Calcium 8.5 mg/dL (8.4-10.2); Carbon Dioxide 23 mmol/L (22-29); Chloride 104 mmol/L (96-108); Creatinine Clr Calc Pharmacy 61.8; Estimated Glomerular Filt Rate > 60; Potassium 3.4 mmol/L (3.3-5.1); Sodium 137 mmol/L (135-145); Total Protein 6.3 g/dL (6.5-8.0)
[2025-07-07 07:32] LABS: Cholesterol 169 mg/dL (<200); HDL Cholesterol 45 mg/dL (>40); Triglycerides 136 mg/dL (<150)
--- NOTE | 2025-07-07 09:15 | MHC.CM.PN ---
Addendum entered by Sylvia Tinajero 07/07/25 12:56: PT/OT are recommending Acute Rehab. Original Note: FORRESTER was addressed verbally with Patient (Patient is physically unable to sign). Patient lives in a townhouse with her /HCP/Yoan who will transport at dc if dc is ti home. Patient will benefit from a PT Eval to assist with disposition; CM has initiated and will follow for dc planning. PCP is Dr. Trinity Banuelos.
[2025-07-07] MEDS: 0.9 % Sodium Chloride Flush 3 ML SYRINGE IVFLUSH (09:22)
[2025-07-07 10:51] VITALS: BP 135/89; PULSE 97; RESP 20; TEMP 36.9; O2SAT 97
--- NOTE | 2025-07-07 11:21 | P.CNNE_ITS ---
History of Present Illness Data of Consult Service Date: 07/07/25 Primary Care Provider: Trinity Banuelos MD [facility] Reason for consult: stroke This is a 75 year old woman with a history of gallbladder adenocarcinoma with ascites who received 3 rounds of chemotherapy with no response at [facility]. She presented to the ER after a fall in the shower. She was noted to have slurred speech and left-sided facial droop with left-sided paralysis. Last known well time was 10:00 this morning. She was also noted to have word-finding difficulties and mild dysarthric speech. She is on Eliquis and was not a candidate for TNK. Her troponin was also noted at 2870. Head and neck CTA negative for cerebral artery occlusion, embolus, no high-degree stenosis or dissection, head CT negative for intracranial abnormality. Stable blood pressure. She gets regular paracentesis for her abdominal ascites. [facility] Past Medical History Medical History History of DVT (deep vein thrombosis) Adenocarcinoma of gallbladder Family History Family History Daughter Mental health disorder Surgical History Surgical History Status post cholecystectomy History of laparoscopic cholecystectomy (~10/20/23) Social History Social History Household Members: Spouse Household Members Other:: , 3 children, lives with daughter, Housing: House Do you presently have visiting nurse or other home services: No Alcohol intake: current Alcohol intake frequency: 0-2 drinks per day Alcohol type: wine Patient Tobacco Use Status: Former Tobacco user e-Cigarette/Vaping Use: Never Used Currently Displaying Signs/Symptoms of Drug Intoxication Withdrawal: No Advance Directives: No Advance Directives Information Provided: Yes Recently lost weight without trying: Yes How much weight loss: 2-13 pounds Eating poorly because of decreased appetite: Yes Nutrition screen score: 4 Patient : No service: No Current occupational status: retired Cognitive needs: No Hearing needs: No Vision needs: Yes Meds Allergies Allergy/AdvReac Type Severity Reaction Status Date / Time albumin colloid, human AdvReac Redness of Verified 07/06/25 13:39 Skin Sulfa (Sulfonamide AdvReac hives Verified 09/07/24 13:43 Antibiotics) Active Medications: Current Medications Acetaminophen (Acetaminophen 325 Mg Tablet) 650 mg PO Q6H PRN PRN Reason: Pain, Mild 1-3,fever,headache Apixaban (Apixaban 5 Mg Tablet) 5 mg PO BID [facility] Last Admin: 07/07/25 09:22 Dose: 5 mg Calcium Carbonate (Calcium Carbonate 750 Mg Tab.Chew) 750 mg PO Q4H PRN PRN Reason: Heartburn Docusate Sodium (Docusate Sodium 100 Mg Capsule) 100 mg PO DAILY PRN PRN Reason: Constipation Famotidine (Famotidine 20 Mg Tablet) 20 mg PO BID [facility] Last Admin: 07/07/25 09:22 Dose: 20 mg Magnesium Hydroxide (Milk Of Magnesia 30 Ml Oral.Susp) 30 ml PO DAILY PRN PRN Reason: Constipation Melatonin (Melatonin 3 Mg Tablet) 6 mg PO BEDTIME PRN PRN Reason: Insomnia Ondansetron HCl (Ondansetron Hcl 4 Mg/2 Ml Vial) 4 mg IVPUSH Q8H PRN PRN Reason: Nausea and Vomiting Sodium Chloride (0.9 % Sodium Chloride Flush 3 Ml Syringe) 3 ml IVFLUSH QSHIFT [facility] Last Admin: 07/07/25 09:22 Dose: 3 ml Home Medications ?Medication ?Instructions ?Recorded ?Confirmed ?Last Taken ?Type apixaban 5 mg tablet (Eliquis) 5 mg PO BID 07/06/2507/05/25 History docusate sodium 100 mg tablet 100 mg PO DAILY PRN Cons tipation 07/06/25 07/06/25 07/05/25 History famotidine 20 mg tablet 20 mg PO BID 07/06/2507/05/25 History loperamide 2 mg tablet 4 mg PO BID PRN Loose Stool 07/06/25 07/06/25 07/05/25 History Physical Exam 2 Vital Signs: Vital Signs: Last Vital Signs Temp 98.4 F 07/07/25 10:51 Pulse 97 07/07/25 10:51 Resp 20 07/07/25 10:51 BP 135/89 07/07/25 10:51 Pulse Ox 97 07/07/25 10:51 O2 Del Method Room Air 07/07/25 10:51 BMI result Body Mass Index 23.5 Neuro: Other: She is alert and awake with normal cognitive abilities. She has got mild dysarthria with slow speech. She has a complete left homonymous hemianopsia significant left facial weakness and complete flaccid left hemiplegia with extensor plantar response. She moves the right side to command. Results Labs 07/07/25 06:36 07/07/25 06:36 Labs: Short CBC 07/06/25 07/07/25 Range/Units 13:46 06:36 WBC 9.3 9.1 (4.8-10.8) X10*3/uL Hgb 9.0 L 9.1 L (12.0-16.0) g/dl Hct 27.9 L 27.9 L (37.0-47.0) % Plt Count 173 D 186 (160-400) X10*3/uL BMP 07/06/25 07/07/25 13:46 06:36 Sodium 136 137 Potassium 3.6 3.4 Chloride 102 104 Carbon Dioxide 26 23 BUN 18 H 15 Creatinine 0.73 0.64 Calcium 8.3 L D 8.5 Cardiac Enzymes 07/07/25 Range/Units 06:36 Total Creatine Kinase 86 (26-140) U/L Liver Function 07/06/25 07/07/25 Range/Units 13:46 06:36 Total Bilirubin 0.8 0.7 (0.0-1.0) mg/dL Direct Bilirubin 0.4 (0.0-0.5) mg/dL AST 53 H 52 H (5-31) U/L ALT < 6 6 (0-31) U/L Alkaline Phosphatase 128 H 126 H (39-117) U/L Albumin 2.8 L 2.9 L (3.5-5.0) g/dL Assessment and Plan (1) Stroke: Qualifiers: Laterality of affected vessel: right Status: Acute She is now 25 hours status post major right MCA ischemic infarct. No TNK was used because she is on Eliquis for DVT and there was no occlusive lesions seen on the CTA for any other sort of intervention. She is also terminal from her adenocarcinoma of the gallbladder which has not responded to chemotherapy. The wants to respect her wishes of taking her home and has made arrangements for home care. At this point, other than passive range of motion of the left hemiplegia,and a swallowing evaluation, we would not intervene in any other way. General comfort measures are recommended. Procedures Date of Service Date of Service: 07/07/25
--- NOTE | 2025-07-07 13:57 | MHC.CM.PN ---
Patient has been changed to INPATIENT; CM addressed IMM with Patient and her /HCP/Yoan. CM discussed PT's recommendation for Acute Rehab and they are agreeable to referrals being made to acute rehabs but feel home with Hospice may be the ultimate plan(referral made to [facility] as well, per Patient/'s request).CM will follow.
--- NOTE | 2025-07-07 14:29 | HO.WOUND ---
Wound Consult: Initial 75 yr old female admitted to [facility] on 07/07/25 - See progress notes and H&P for detailed history. Wound consult placed for coccyx, left shoulder, left hip. Patient agreeable to assessment and photo documentation by RN during P&I day. Patient with fall at home prior to admission. Assessment completed through photo review, patient not in room, will attempt in person physical assessment at a later date/time. Coccyx Etiology: coccyx deep tissue pressure injury Present on Admission Measurements: approximately 1cm x 1cm x 0cm Wound Bed: intact deep purple discoloration Drainage / Odor: none Goals of Treatment: ? offloading with foam dressing Left hip - diffuse intact purple area- appears to be a bruise POA Left posterior shoulder/back - large area of intact bruising - purple/blue/yellow Recommendations: 1. Turn and Reposition every 2 hours and as needed for patient comfort. Use pillows or wedges to support off loading positions. 2. Off Load all bony prominences with use of pillows and heel boots if needed. Apply Preventative foams where needed. 3. Monitor for incontinence and moisture control, use barrier creams when needed for prevention and treatment. 4. Provide adequate and supplemental nutrition. 5. Order or Continue low air loss mattress. 6. When applicable maintain blood glucose levels per Providers order. Coccyx: Off Load Pressure with Q2 hr turns and use of pillows - Routine cleansing. Apply skin prep allow to dry. Cover with foam dressing to aid in off loading and protection from friction. Change every 3 days and PRN. Re-consult wound care Nurse for wound deterioration or wound changes.
--- NOTE | 2025-07-07 15:21 | MHC.SL.SWA ---
Speech Pathologist Impression: Moderate oral, mild pharyngeal dysphagia Risk of Aspiration Due to: Weakness L sided facial droop Dysphasia Diet Status: Pt transitioning to hospice d/t poor prognosis. OBSTETRICS NURSE available for consultation if indicated. Liquid Consistency and Strategies for Safe Swallow: Liquid Intake Recommendation: [place] Thick Liquid Intake Strategies: Solid Food Consistency: Dietary Recommendations: Grnd/Mech Altered (NDD2) Additional Modifications to Solid Foods: Oral Medication Intake: Crushed with Puree Please contact the pharmacy regarding appropriate crushable or liquid drug formulations that are available whenever modified delivery is recommended. Compensatory Strategies and Precautions to be Taken for Safe Swallow: Supervision While Eating and Drinking for Safe Swallow: Total Assistance (1:1) Foods to Avoid: Swallowing Recommended Treatments: As indicated Recommendation for Speech: Comment: Pt presents with moderate oral and mild pharyngeal dysphagia d/t L sided facial weakness and droop, weakness of symmetrical movements and difficulty initiating voluntary OM movements. Pt coughed with thins and mastication/bolus preparation was lengthy. Anterior loss of material from L side of mouth occurred on all trials, with less loss for NTL and purees. Pt tolerated NTL and purees without overt s/s of aspiration, though extended time and ease of fatigue observed across minimal trials. Pt at bedside during clinical swallow evaluation, recording assessment on his cell phone, noting he has to record medical appointments for pt as things are very complicated. Pt and spouse verbalize understanding of [facility] diet and agree with current POC. OBSTETRICS NURSE communicated findigns with MD, RN and RD via secure text. RD texted OBSTETRICS NURSE post evaluation to inform 'order has not yet been changed'. Pt had MRI this afteroon, order to be confirmed Frequency/Duration: Date Range for Service Req: Timeline to reassess: Legal Transcriptionist Clinican/Clinical Fellow: No Supervisory Statement: I have reviewed and agree with the student/clinical fellow's documentation: N/A Speech Language Pathologist: Jody Funes M.S., CCC-OBSTETRICS NURSE
[2025-07-07 15:29] VITALS: BP 127/79; PULSE 96; RESP 18; TEMP 37.1; O2SAT 97
--- NOTE | 2025-07-07 18:19 | HO.PM.IMPN ---
Subjective Subjective Date of Service: 07/07/25 Interval History: Patient was seen earlier today, with no particular complaints. Discussion regarding her CVA was held. Later in the day neurology had evaluated the patient and MRI results had returned. MRI brain reveals bilateral (R>L) cerebral and cerebellar infarcts of cardioembolic nature. In the setting of the patient's multiple CVAs as well as the patient's cholangiocarcinoma that has not been responding to chemotherapy, decision has been made to transitioned to DIRECTOR PHARMACY SERVICES. Hospice service had discussion with the patient and with the decision to transitioned to [facility] PHARMAC[facility] SERVICES. Confirmed discussion with the patient and her by bedside today. Plan is to transitioned to [facility] PHARMACY SERVICES, however with the patient also has extensive abdominal ascites requiring therapeutic paracentesis at least once a week. The patient and were requesting possible placement of pigtail catheter by Interventional Radiology to assist with transition to [facility] PHARM[facility] without the need for frequent admissions to hospital for therapeutic paracentesis Review of Systems Review of Systems: Yes all other systems are reviewed and are negative Physical Exam Exam: Exam: General: A&O x3, oriented to time place person and situation, comfortable, no pain Cardiac: S1, S2 auscultated with no S3/4, no MRG. Well perfused. Respiratory: Normal breath sounds auscultated throughout all lung zones, without wheezing, rales. Normal rate. GI/ : No abdominal pain on palpation, no masses or distentions. MSK: Normal ambulation without pain at bony prominences or musculature Neurological: Left-sided facial droop, expressive aphasia, left gaze mohini deficit, - strength: 1/5 left upper and lower extremity - sensation altered left upper and lower extremity and face - Reduced tone left upper and lower extremities Vital Signs: Vital Signs: Last Vital Signs Temp 98.8 F 07/07/25 15:29 Pulse 96 07/07/25 15:29 Resp 18 07/07/25 15:29 BP 127/79 07/07/25 15:29 Pulse Ox 97 07/07/25 15:29 O2 Del Method Room Air 07/07/25 15:29 BMI result Body Mass Index 23.5 Objective Data Active Medications Acetaminophen (Acetaminophen 325 Mg Tablet) 650 mg PO Q6H PRN PRN Reason: Pain, Mild 1-3,fever,headache Apixaban (Apixaban 5 Mg Tablet) 5 mg PO BID [facility] Last Admin: 07/07/25 09:22 Dose: 5 mg Documented By: YOSVANY Calcium Carbonate (Calcium Carbonate 750 Mg Tab.Chew) 750 mg PO Q4H PRN PRN Reason: Heartburn Docusate Sodium (Docusate Sodium 100 Mg Capsule) 100 mg PO DAILY PRN PRN Reason: Constipation Famotidine (Famotidine 20 Mg Tablet) 20 mg PO BID [facility] Last Admin: 07/07/25 09:22 Dose: 20 mg Documented By: YOSVANY Magnesium Hydroxide (Milk Of Magnesia 30 Ml Oral.Susp) 30 ml PO DAILY PRN PRN Reason: Constipation Melatonin (Melatonin 3 Mg Tablet) 6 mg PO BEDTIME PRN PRN Reason: Insomnia Ondansetron HCl (Ondansetron Hcl 4 Mg/2 Ml Vial) 4 mg IVPUSH Q8H PRN PRN Reason: Nausea and Vomiting Sodium Chloride (0.9 % Sodium Chloride Flush 3 Ml Syringe) 3 ml IVFLUSH QSHIFT [facility] Last Admin: 07/07/25 16:46 Dose: Not Given Documented By: YOSVANY Non-Admin Reason: Previously Administered Labs 07/07/25 06:36 07/07/25 06:36 Labs: Laboratory Results - last 24 hr 07/07/25 06:36 MCV 97.6 MCH 31.8 MCHC 32.6 RDW 18.4 H Plt Count 186 MPV 9.3 L Absolute Nucleated RBC 0.000 Nucleated RBC % (auto) 0.0 Anion Gap 13 Estim Creat Clear Calc 61.8 Estimated GFR > 60 Random Glucose 78 Calcium 8.5 Total Bilirubin 0.7 AST 52 H ALT 6 Alkaline Phosphatase 126 H Total Creatine Kinase 86 Total Protein 6.3 L Albumin 2.9 L Triglycerides 136 Cholesterol 169 LDL Cholesterol, Calc 97 HDL Cholesterol 45 Assessment and Plan (1) Heart murmur: Status: Acute (2) Acute non-ST elevation myocardial infarction (NSTEMI): Status: Acute (3) Stroke: Status: Acute (4) Adenocarcinoma of gallbladder: Status: Acute (5) Status post cholecystectomy: Status: Acute Plan 75 year old woman with a background history cholangiocarcinoma with metastatic ascites, DVT, chronic anemia, presents with fall, admitted with acute ischemic/embolic CVAs with dense left hemiplegia and hemiparesis, with type 2 demand NSTEMI, transitioned to [facility]OR PHARMACY SERVICES 07/07/2025 Ischaemic CVA right MCA Cardioembolic Left-sided facial droop, expressive aphasia, dense left upper extremity and lower extremity hemiplegia /. Neurology consulted: Recommendations greatly appreciated No TNK use 2/2 being on Eliquis for DVT No occlusive lesions seen on CTA MRI brain revealing bilateral multiple embolic cerebral and cerebellar infarcts predominantly involving the right middle and right posterior cerebral arteries. Neurology recommending transitioned to [facility]OR PHARMACY SERVICES; especially in context of metastatic adenocarcinoma gallbladder. Monitor on Telemetry Neurology consultation Aspirin 81 mg OD p.o. High-intensity statin PT/OT Echocardiogram Type II Demand NSTEMI Significantly elevated troponin Suspected demand ischemia in the setting of large ischemic CVA asa and statin ECHO Fall ? from stroke in the shower no injury PT hx of DVT 11/2024 at [facility] Gallbladder carcinoma Large volume abdominal ascites Currently undergoing chemotherapy at [facility] Also receives large volume paracentesis regularly once a week at [facility]. Since the patient is transitioning to DIRECTOR PHARMACY SERVICES she wishes for placement of pigtail catheter to assist with drainage at home, without needing to presents to the hospital. Resource Engineer Radiology was consulted [employer] - VTE: Apixaban 5 mg b.i.d. - CODE STATUS: Full code --> DNR/DNI. Plan is transitioned the patient to DIRECTOR PHARMACY SERVICES, with outpatient hospice. This plan will be initiated on the patient's discharge. We will consult Interventional Radiology to possibly place pigtail catheter initially for large volume ascites prior to transitioning to [facility] PHARM[facility]. - DIET: NPO Total time managing care of this patient today: 60 minutes. Quality Stroke Does the patient have a stroke diagnosis?: Yes Reason for No Anti-thrombotic by Day Two: N/A - Med Ordered VTE Prior VTE?: Yes VTE Risk Level:: Medical - moderate - high VTE Device Contraindication: Treatment Not Indicated VTE Drug Contraindication: N/A - Med Ordered
[2025-07-07 19:15] VITALS: BP 122/75; PULSE 101; RESP 18; TEMP 36.7; O2SAT 98
[2025-07-07] MEDS: diazePAM 10 MG/2 ML CARTRIDGE 5 MG IVPUSH (21:09)
[2025-07-07 23:09] VITALS: BP 117/67; PULSE 85; RESP 18; TEMP 37.1; O2SAT 96
[2025-07-08 03:53] VITALS: BP 128/79; PULSE 104; RESP 18; TEMP 36.8; O2SAT 94
[2025-07-08 08:00] VITALS: BP 131/87; PULSE 103; RESP 18; TEMP 36.7; O2SAT 98
[2025-07-08] MEDS: 0.9 % Sodium Chloride Flush 3 ML SYRINGE IVFLUSH ×2 (09:57→15:57)
--- NOTE | 2025-07-08 10:17 | HO.WOUND ---
Wound Consult: Initial 75 yr old female admitted to [facility] on 07/07/25 - See progress notes and H&P for detailed history. Wound consult placed for coccyx. Patient agreeable to assessment and photo documentation. Photo documentation reviewed yesterday, physical assessment completed today, at bedside. Coccyx Etiology: coccyx deep tissue pressure injury Present on Admission Measurements: 2cm x 2cm x 0cm Wound Bed: intact nonblanching deep maroon/purple Drainage / Odor: none Edges: ? irregular Erum wound: ? No Induration, Fluctuance or Warmth noted - surrounding redness and hyperpigmentation extending down gluteal cleft Pain: none Goals of Treatment: ? foam dressing for offloading and pressure redistribution left heel- intact blanching - offloaded with pillows intact pink and blanching- offloaded with pillows left hip- intact purple/blue diffuse bruise - protected with foam Right knee- blue and brown bruising bilateral elbows intact and blanching Recommendations: 1. Turn and Reposition every 2 hours and as needed for patient comfort. Use pillows or wedges to support off loading positions. 2. Off Load all bony prominences with use of pillows and heel boots if needed. Apply Preventative foams where needed. 3. Monitor for incontinence and moisture control, use barrier creams when needed for prevention and treatment. 4. Provide adequate and supplemental nutrition. 5. Order or Continue low air loss mattress. 6. When applicable maintain blood glucose levels per Providers order. Coccyx: Off Load Pressure with Q2 hr turns and use of pillows - Routine cleansing. Apply skin prep allow to dry. Cover with foam dressing to aid in off loading and protection from friction. Change every other day and PRN. Re-consult wound care Nurse for wound deterioration or wound changes.
--- NOTE | 2025-07-08 10:34 | MHC.CM.PN ---
Pt to go to IR today for a pig tail cath placement before returning to home w/[facility]. Forms completed by MD and faxed to [facility] for home supplies. CM met w/pt and spouse to discuss finalization of d/c planning needs.
[2025-07-08 12:00] VITALS: BP 126/77; PULSE 92; RESP 18; TEMP 36.4; O2SAT 97
[2025-07-08 14:21] VITALS: BMI 23.5
--- NOTE | 2025-07-08 14:24 | MHC.CLN ---
PT WITH INCREASED NUTRITION RISK R/T PRESSURE INJURY PT AND FAMILY HAS DECIDED TO TRANSITION TO LENDING ADVISOR WITH HOSPICE SERVICES DIET RX: GRD WITH NT LIQ PO INTAKE 0% NO NEW ORDERS AT THIS TIME WILL FOLLOW WITH TEAM AND PROVIDE SUPPORT NEEDED PRIMARY GOAL IS COMFORT SEE FULL ASSESSMENT
--- NOTE | 2025-07-08 14:57 | P.PNIM_ITS ---
Subjective Subjective Date of Service: 07/08/25 Interval History: Remains with expressive aphasia with element of receptive aphasia As discussed previously, the patient has planned to transitioned to INSTRUCTIONAL DESIGN MANAGER after placement of pigtail catheter by Interventional Radiology for recurrent malignant ascites requiring weekly paracentesis. Review of Systems Review of Systems: Yes all other systems are reviewed and are negative Physical Exam 2 Exam: Exam: General: A&O x3, oriented to time place person and situation, comfortable, no pain; expressive aphasia and receptive aphasia Cardiac: S1, S2 auscultated with no S3/4, no MRG. Well perfused. Respiratory: Normal breath sounds auscultated throughout all lung zones, without wheezing, rales. Normal rate. GI/ : No abdominal pain on palpation, no masses or distentions. MSK: Normal ambulation without pain at bony prominences or musculature Neurological: Left-sided facial droop, expressive aphasia, left gaze mohini deficit, - strength: 1/5 left upper and lower ex tremity - sensation altered left upper and lower extremity and face - Reduced tone left upper and lower extr emities Vital Signs: Vital Signs: Last Vital Signs Temp 97.6 F 07/08/25 12:00 Pulse 92 07/08/25 12:00 Resp 18 07/08/25 12:00 BP 126/77 07/08/25 12:00 Pulse Ox 97 07/08/25 12:00 O2 Del Method Room Air 07/08/25 12:00 BMI result Body Mass Index 23.5 Objective Data Active Medications Acetaminophen (Acetaminophen 325 Mg Tablet) 650 mg PO Q6H PRN PRN Reason: Pain, Mild 1-3,fever,headache Apixaban (Apixaban 5 Mg Tablet) 5 mg PO BID [facility] Last Admin: 07/08/25 09:56 Dose: 5 mg Documented By: CARRI Calcium Carbonate (Calcium Carbonate 750 Mg Tab.Chew) 750 mg PO Q4H PRN PRN Reason: Heartburn Docusate Sodium (Docusate Sodium 100 Mg Capsule) 100 mg PO DAILY PRN PRN Reason: Constipation Famotidine (Famotidine 20 Mg Tablet) 20 mg PO BID [facility] Last Admin: 07/08/25 09:56 Dose: 20 mg Documented By: CARRI Magnesium Hydroxide (Milk Of Magnesia 30 Ml Oral.Susp) 30 ml PO DAILY PRN PRN Reason: Constipation Melatonin (Melatonin 3 Mg Tablet) 6 mg PO BEDTIME PRN PRN Reason: Insomnia Ondansetron HCl (Ondansetron Hcl 4 Mg/2 Ml Vial) 4 mg IVPUSH Q8H PRN PRN Reason: Nausea and Vomiting Sodium Chloride (0.9 % Sodium Chloride Flush 3 Ml Syringe) 3 ml IVFLUSH QSHIFT MELANIA Last Admin: 07/08/25 09:57 Dose: 3 ml Documented By: CARRI Labs 07/07/25 06:36 07/07/25 06:36 Assessment and Plan (1) Acute non-ST elevation myocardial infarction (NSTEMI): Status: Acute (2) Acute emphysematous cholecystitis: Status: Acute (3) Status post cholecystectomy: Status: Acute (4) Adenocarcinoma of gallbladder: Status: Acute (5) Malignant ascites: Status: Acute (6) Ischemic cerebrovascular accident (CVA): Status: Acute Plan 75 year old woman with a background history cholangiocarcinoma with metastatic ascites, DVT, chronic anemia, presents with fall, admitted with acute ischemic/embolic CVAs with dense left hemiplegia and hemiparesis, with type 2 demand NSTEMI, transitioned to INSTRUCTIONAL DESIGN MANAGER 07/07/2025 Ischaemic CVA right MCA Cardioembolic Left-sided facial droop, expressive aphasia, dense left upper extremity and lower extremity hemiplegia 08/02. Neurology consulted: Recommendations greatly appreciated No TNK use / being on Eliquis for DVT No occlusive lesions seen on CTA MRI brain revealing bilateral multiple embolic cerebral and cerebellar infarcts predominantly involving the right middle and right posterior cerebral arteries. Neurology recommending transitioned to INSTRUCTIONAL DESIGN MANAGER; especially in context of metastatic adenocarcinoma gallbladder. Monitor on Telemetry Neurology consultation Aspirin 81 mg OD p.o. High-intensity statin PT/OT Echocardiogram Type II Demand NSTEMI Significantly elevated troponin Suspected demand ischemia in the setting of large ischemic CVA asa and statin ECHO Fall ? from stroke in the shower no injury PT hx of DVT 11/2024 at [facility] Gallbladder carcinoma Large volume abdominal ascites Currently undergoing chemotherapy at [facility] Also receives large volume paracentesis regularly once a week at [facility]. Since the patient is transitioning to INSTRUCTIONAL DESIGN MANAGER she wishes for placement of pigtail catheter to assist with drainage at home, without needing to presents to the hospital. [employer] Supervisor Radiology was consulted [employer] - VTE: Apixaban 5 mg b.i.d. - CODE STATUS: Full code --> DNR/DNI --> INSTRUCTIONAL DESIGN MANAGER after placement of pigtail catheter Plan is transition the patient to INSTRUCTIONAL DESIGN MANAGER, with outpatient hospice. This plan will be initiated on the patient's discharge. - DIET: NPO Total time managing care of this patient today: 45 minutes. Quality Stroke Does the patient have a stroke diagnosis?: Yes Reason for No Anti-thrombotic by Day Two: N/A - Med Ordered VTE Prior VTE?: Yes VTE Risk Level:: Medical - moderate - high VTE Device Contraindication: Treatment Not Indicated VTE Drug Contraindication: N/A - Med Ordered
--- NOTE | 2025-07-08 15:17 | PC.NURSE ---
Pt had a tunelled pleurex drain inserted to LLQ; this RN present; unable to chart procedural vital signs in [employer] due to a technical issue; vitals signs throughout procedure are as follows: 14:15 HR 93 RR 15 BP 134/92 SAO2 100% RA 1430 HR 95 RR15 BP131/85 SAO2 100% 2 LTR NC 1445 HR 92 RR 17 BP 130/86 SAO2 100% 2 LTR NC 1500 HR 82 RR 15 BP 129/81 100% RA Pt ate p/t procedure, so Fentanyl only given; pt was sleepy but oriented during procedure; tolerated procedure well
[2025-07-08 16:00] VITALS: BP 127/65; PULSE 99; RESP 18; TEMP 37.2; O2SAT 99
--- NOTE | 2025-07-08 18:02 | MHC.SLORD ---
Speech Language Pathology Order Status: Patient unable to be seen by EGG PRODUCER this date. Will continue to follow.
[2025-07-08 19:42] VITALS: BP 130/86; PULSE 106; RESP 15; TEMP 37.6; O2SAT 96
[2025-07-08 20:57] LABS: Glucose, Whole Blood 103 mg/dL (60-115)
[2025-07-08 23:10] VITALS: BP 127/80; PULSE 90; RESP 17; TEMP 37.6; O2SAT 97
[2025-07-09 03:02] VITALS: BP 113/73; PULSE 89; RESP 17; TEMP 37.4; O2SAT 94
[2025-07-09 07:39] VITALS: BP 112/73; PULSE 86; RESP 18; TEMP 36.3; O2SAT 96
--- NOTE | 2025-07-09 07:59 | PM.DS ---
DS: Providers Provider Date of admission: 07/07/25 09:44 Date of discharge: 07/09/25 Primary care physician: Trinity Banuelos MD Consults: 07/06/25 17:12 Consult to Neurology Routine Consulting Provider: [facility] Reason for consultation: tia 07/07/25 09:23 Consult to Wound Care Routine Consulting Provider: [facility] [place] Wound Care Management Reason for consultation: L. shoulder/L. coccyx/L. buttocks bruises s/p fall DS: Diagnosis Discharge Diagnosis (1) Acute non-ST elevation myocardial infarction (NSTEMI): Status: Acute (2) Acute emphysematous cholecystitis: Status: Acute (3) Status post cholecystectomy: Status: Acute (4) Adenocarcinoma of gallbladder: Status: Acute (5) Malignant ascites: Status: Acute (6) Ischemic cerebrovascular accident (CVA): Status: Acute DS: Summary Hospital Course Hospital Course: 75 year old woman with a background history cholangiocarcinoma with metastatic ascites, DVT, chronic anemia, presents with fall, admitted with acute ischemic/embolic CVAs with dense left hemiplegia and hemiparesis, with type 2 demand NSTEMI, transitioned to JUVENILE PROBATION OFFICER 07/07/2025 s/p placement of single sided pigtail catheter. Ischaemic CVA right MCA Cardioembolic Left-sided facial droop, expressive aphasia, dense left upper extremity and lower extremity hemiplegia 1/5. Neurology consulted: Recommendations greatly appreciated No TNK use 2/2 being on Eliquis for DVT No occlusive lesions seen on CTA MRI brain revealing bilateral multiple embolic cerebral and cerebellar infarcts predominantly involving the right middle and right posterior cerebral arteries. Neurology recommending transitioned to JUVENILE PROBATION OFFICER; especially in context of metastatic adenocarcinoma gallbladder. Aspirin 81 mg OD p.o. DC High-intensity statin DC Type II Demand NSTEMI Significantly elevated troponin Suspected demand ischemia in the setting of large ischemic CVA asa and statin discontinue Metastatic Cholangiocarcinoma Metastatic Ascites Unresponsive to chemotherapy No further interventions planned Metastatic ascites required the patient to present weekly to [facility] for therapeutic paracentesis Patient had pigtail catheter placed 07/08/2025 to assist with therapeutic and comfort paracentesis Documentation signed and prescribed Comfort Measures Only Goals of Care: The goal is to provide maximal comfort and preserved dignity, allowing for a natural dying process. Life prolonging treatments are not being pursued due to multi organ dysfunction with terminal diagnosis, poor prognosis, overwhelming disease burden. Advanced directives: Patient's advanced directive is on file and reviewed. The patient & are aware and agrees with the plan for JUVENILE PROBATION OFFICER. Interventions: All interventions will be focused on symptom management including pain, anxiety, dyspnea, nausea/vomiting. Resuscitation status: JUVENILE PROBATION OFFICER orders are in place Status at Discharge Cognitive/behavioral status at discharge: Alert and oriented to person place time and situation Functional status at discharge: bed bound Overall status at discharge: patient is not back to baseline Time Attestation Total time managing care of this patient today: 45 mintues. Discharge Coordination Time (in mins): 35 Quality: Safe Use of Opioids Does Pt have an Active Cancer Diagnosis on the Problem List?: Yes Opioid Measure Date for [facility] Report: 06/09/25 Opioid Measure Time for [facility] Report: 10:24 Quality: Stroke Does the patient have a stroke diagnosis?: Yes Reason for No Anti-thrombotic at DC: Not indicated Reason for No Anticoagulant at DC: Not indicated Reason Not Initiating IV-Tpa: Not indicated Reason for No Anti-thrombotic by Day Two: Not indicated Reason for No Statin at DC: Not indicated Physical Exam Exam: Exam: General: A&O x3, oriented to time place person and situation, comfortable, no pain; expressive aphasia and receptive aphasia Cardiac: S1, S2 auscultated with no S3/4, no MRG. Well perfused. Respiratory: Normal breath sounds auscultated throughout all lung zones, without wheezing, rales. Normal rate. GI/ : No abdominal pain on palpation, no masses or distentions. MSK: Normal ambulation without pain at bony prominences or musculature Neurological: Left-sided facial droop, expressive aphasia, left gaze mohini deficit, - strength: 1/5 left upper and lower extremity - sensation altered left upper and lower extremity and face - Reduced tone left upper and lower extremities Vital Signs: Vital Signs: Last Vital Signs Temp 97.3 F 07/09/25 07:39 Pulse 86 07/09/25 07:39 Resp 18 07/09/25 07:39 BP 112/73 07/09/25 07:39 Pulse Ox 96 07/09/25 07:39 O2 Del Method Room Air 07/09/25 07:39 BMI result Body Mass Index 23.5 DS: Data Data Completed and Pending Completed studies during hospitalization [Text1]: Procedures Inspection of Gallbladder, Percutaneous Endoscopic Approach (10/20/23) Resection of Gallbladder, Open Approach (10/20/23) Labs on day of discharge: Laboratory Results - last 24 hr 07/08/25 20:52 POC Glucose 103 Discharge Plan Discharge Anticipated Discharge Date/Time: 07/09/25 08:05 Patient Disposition: Hospice - Home Discharge Diagnosis: 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) Referrals: Trinity Banuelos MD [Primary Care Provider, Internal Medicine] - 1 Week Discharge Medications: New sennosides [Senna Lax] 8.6 mg Tablet 8.6 mg PO BEDTIME 7 Days Qty: 7 0RF acetaminophen 325 mg Tablet 650 mg PO Q4H PRN (Reason: Fever >/= 100, Pain, mild 1-3) 7 Days Qty: 42 0RF haloperidol 1 mg Tablet 1 mg PO Q4H PRN (Reason: Delirium) 7 Days Qty: 42 0RF diphenhydramine HCl 25 mg Capsule 50 mg PO BEDTIME PRN (Reason: Insomnia) 14 Days Qty: 14 0RF ibuprofen 400 mg Tablet 400 mg PO Q6H PRN (Reason: Fever >/= 100, Pain, mild 1-3) 7 Days Qty: 28 0RF lorazepam 1 mg Tablet 1 mg PO Q4H PRN (Reason: Myoclonic twitching/anxiety) 4 Days Qty: 24 0RF morphine 15 mg Tablet 15 mg PO Q4H PRN (Reason: Breakthrough Pain) 4 Days Qty: 24 0RF Rx Instructions: Partial Fill upon patient request. ondansetron 4 mg Tablet,Disintegrating 4 mg translingual Q8H PRN (Reason: Nausea And Vomiting) 7 Days Qty: 21 0RF oxycodone 5 mg Tablet 5 mg PO Q4H PRN (Reason: Pain, Moderate(Pain Scale 4-6)) 4 Days Qty: 24 0RF Rx Instructions: Partial Fill upon patient request. Continued famotidine 20 mg Tablet 20 mg PO BID loperamide 2 mg Tablet 4 mg PO BID PRN (Reason: Loose Stool) Rx Instructions: administer after each loose stool until symptoms controlled; do not exceed 8 mg per 24 hrs docusate sodium 100 mg Tablet 100 mg PO DAILY PRN (Reason: Constipation) Discontinued Eliquis 5 mg tablet 5 mg PO BID Discharge Orders: Discharge Order (Routine); Ordered 12/12/25 Ordered By: Poonam Mccord Diet: Advance to usual diet Activity on Discharge: As tolerated Stand Alone Forms: Patient Portal Discharge page Print Language: Italian Care Plan Goals: As above Health Concerns: As above Plan of Treatment: Transitioning to outpatient hospice Assessment: Transitioning to outpatient hospice
[2025-07-09] MEDS: 0.9 % Sodium Chloride Flush 3 ML SYRINGE IVFLUSH (08:09)
== END 2025-07-09 12:54 | disposition hospice, home (50) | DRG 64 ==
LOC: HO.ED 14:14 → HO.EDOVER 17:30 → HO.IMC 19:53
PROVIDERS: Admitting Provider Nurse Practitioner Acute Care; Emergency Provider Emergency Medicine Emergency Medical Services; PCP Internal Medicine; Visit Provider Hospitalist
DX: I63.411 Cerebral infarction due to embolism of right middle cerebral artery (principal); I21.A1 Myocardial infarction type 2; C23 Malignant neoplasm of gallbladder; G81.94 Hemiplegia, unspecified affecting left nondominant side; R18.0 Malignant ascites; I63.431 Cerebral infarction due to embolism of right posterior cerebral artery; R47.01 Aphasia; R29.707 NIHSS score 7; Z66 Do not resuscitate; Z51.5 Encounter for palliative care; R29.810 Facial weakness; W19.XXXA Unspecified fall, initial encounter; Z86.718 Personal history of other venous thrombosis and embolism; Z20.822 Contact with and (suspected) exposure to COVID-19; Z79.899 Other long term (current) drug therapy
CPT/HCPCS: 32550; 36415; 49083; 70450; 70496; 70498; 70551; 80048; 80053; 80061; 80076; 80307; 82550; 82947; 84484; 85025; 85027; 85610; 85730; 87637; 92610; 93005; 97162; 97166; 99285; C1729; J0690; J0696; J3010; J3360; Q9967

== ENCOUNTER → 2025-07-06 13:20 | Outpatient (BNV) | payer MEDICARE, SELFPAY | PROVIDERS: Admitting Provider Nurse Practitioner Acute Care; Emergency Provider Emergency Medicine Emergency Medical Services; PCP Internal Medicine; Visit Provider Internal Medicine Cardiovascular Disease | DX: R00.0 Tachycardia, unspecified (principal) | CPT/HCPCS: 93010 ==

== ENCOUNTER → 2025-07-06 13:20 | Outpatient (BNV) | payer MEDICARE, SELFPAY | PROVIDERS: Emergency Provider Emergency Medicine Emergency Medical Services; Visit Provider Radiology Diagnostic Radiology | DX: S09.90XA Unspecified injury of head, initial encounter (principal); R53.1 Weakness; R29.810 Facial weakness; Z04.3 Encounter for examination and observation following other accident | CPT/HCPCS: 70450; 70496; 70498 ==

== ENCOUNTER → 2025-07-06 17:12 | Outpatient (BNV) | payer MEDICARE, SELFPAY | PROVIDERS: Admitting Provider Nurse Practitioner Acute Care; Emergency Provider Emergency Medicine Emergency Medical Services; PCP Internal Medicine; Visit Provider Nurse Practitioner Acute Care | DX: I21.4 Non-ST elevation (NSTEMI) myocardial infarction (principal); K81.0 Acute cholecystitis; Z90.49 Acquired absence of other specified parts of digestive tract; C23 Malignant neoplasm of gallbladder; R18.0 Malignant ascites; I63.9 Cerebral infarction, unspecified | CPT/HCPCS: 99233 ==

== ENCOUNTER 2025-07-07 09:44 | Outpatient (BNV) | payer MEDICARE, SELFPAY | END 2025-07-08 10:35 | PROVIDERS: Admitting Provider Nurse Practitioner Acute Care; Emergency Provider Emergency Medicine Emergency Medical Services; PCP Internal Medicine | DX: R18.0 Malignant ascites (principal) | CPT/HCPCS: 32550; 75989 ==

== ENCOUNTER 2025-07-07 09:44 | Outpatient (BNV) | payer MEDICARE, SELFPAY | END 2025-07-07 12:37 | PROVIDERS: Admitting Provider Nurse Practitioner Acute Care; Emergency Provider Emergency Medicine Emergency Medical Services; PCP Internal Medicine; Visit Provider Radiology Body Imaging | DX: I63.9 Cerebral infarction, unspecified (principal) | CPT/HCPCS: 70551 ==

== ENCOUNTER → 2025-07-07 09:44 | Outpatient (BNV) | payer MEDICARE, SELFPAY | PROVIDERS: Admitting Provider Nurse Practitioner Acute Care; Emergency Provider Emergency Medicine Emergency Medical Services; PCP Internal Medicine; Visit Provider Psychiatry & Neurology Neurology | DX: I63.9 Cerebral infarction, unspecified (principal) | CPT/HCPCS: 99222 ==